=== PATIENT | female | born 1970 | race Hispanic/Latino ===

== ENCOUNTER 2018-03-20 13:33 | Inpatient (IN) | payer OTHER ==
[~2018-03-20] VITALS: Ht 162.6 cm; Wt 59.4 kg
[~2018-03-20 13:33] MED LIST: ASPIRIN EC81 MG PO; FENOFIBRATE145 MG PO; FLONASE16 GM; GABAPENTIN100 MG PO; LANSOPRAZOLE30 MG PO; LANTUS100 UNITS/ SC; MECLIZINE HCL25 M1 PO; METFORMIN HCL500 MG PO; NOVOLOG100 UNIT/1 SC; PRAVASTATIN SOD40 MG PO; VENLAFAXINE HC100 MG PO
[2018-03-20] MEDS ORDERED: TYLENOL WITH C1 EACH PO (13:52)
[2018-03-20] MEDS ORDERED: DIFLUCAN150 MG PO (13:52)
[2018-03-20] MEDS ORDERED: CLOPIDOGREL75 MG PO (13:52)
[2018-03-20] MEDS ORDERED: DEXTROSE 50% SYRINGE 50 ML IV PRN (14:00)
[2018-03-20 14:11] LABS: BASOPHILS # (AUTO) 0.1 (0.0-0.1); BASOPHILS % 0.8 % (0.0-1.0); EOSINOPHILS # (AUTO) 0.4 (0.0-0.4); EOSINOPHILS % 4.5 % (0.0-6.0); HEMATOCRIT 45.4 % (34.2-44.1); HEMOGLOBIN 15.4 g/dL (12.0-16.0); LYMPHOCYTES # (AUTO) 3.4 (1.0-3.2); LYMPHOCYTES % 39.6 % (18.0-39.1); MEAN CORPUSCULAR HEMOGLOBIN 30.2 pg (28-32); MEAN CORPUSCULAR HGB CONC 33.9 g/dL (31-35); MONOCYTES # (AUTO) 0.5 (0.2-0.8); MONOCYTES % 5.8 % (4.4-11.3); NEUTROPHILS # (AUTO) 4.2 (2.1-6.9); NEUTROPHILS % 49.1 % (38.7-80.0); PLATELET COUNT 353 x10e3/uL (140-360); RED CELL DISTRIBUTION WIDTH 13.6 % (11.7-14.4)
[2018-03-20 14:29] LABS: ALANINE AMINOTRANSFERASE 12 IU/L (0-55); ALBUMIN 4.3 g/dL (3.5-5.0); ALBUMIN/GLOBULIN RATIO 1.1 (0.8-2.0); ALKALINE PHOSPHATASE 97 IU/L (40-150); ANION GAP 14.2 mmol/L (8-16); BLOOD UREA NITROGEN 17 mg/dL (7-26); BUN/CREATININE RATIO 21 (6-25); CALCIUM 10.2 mg/dL (8.4-10.2); CARBON DIOXIDE 28 mmol/L (22-29); CHLORIDE 101 mmol/L (98-107); EST GLOMERULAR FILTRATION RATE > 60 ML/MIN (60-); GLUCOSE 214 mg/dL (74-118); POTASSIUM 4.2 mmol/L (3.5-5.1); SODIUM 139 mmol/L (136-145)
[2018-03-20 15:30] VITALS: BP 106/66
[2018-03-20] MEDS: SODIUM CHLORIDE 0.9% 1000ML 1,000 ML IV SCH (17:14)
[2018-03-20] MEDS: INSULIN REGULAR, HUMAN 100 UNIT/1 ML 3ML VIAL SQ SCH ×2 (17:14→21:00)
[2018-03-20] MEDS ORDERED: VANCOMYCIN 1GM/NS 250 ML 250 ML IV SCH (18:00)
[2018-03-20] MEDS: PIPER-TAZ 3.375 GM 50 ML IV SCH ×2 (18:51→23:17)
[2018-03-20 20:00] VITALS: BP 158/71
[2018-03-20] MEDS: VANCOMYCIN 1GM/NS 250 ML 250 ML IV SCH (20:00)
[2018-03-20] MEDS: HYDROCODONE/APAP 5MG-325MG TAB PO PRN (20:51)
[2018-03-21] VITALS (8 sets, daily range): BP systolic 139–177; BP diastolic 66–83
[2018-03-21] MEDS: PIPER-TAZ 3.375 GM 50 ML IV SCH ×2 (05:13→14:35)
[2018-03-21] MEDS: INSULIN REGULAR, HUMAN 100 UNIT/1 ML 3ML VIAL SQ SCH ×3 (07:30→21:00)
[2018-03-21] MEDS: VANCOMYCIN 1GM/NS 250 ML 250 ML IV SCH (08:49)
[2018-03-21] MEDS: SODIUM CHLORIDE 0.9% 1000ML 1,000 ML IV SCH (09:02)
[2018-03-21] MEDS: HYDROCODONE/APAP 5MG-325MG TAB PO PRN (09:02)
[2018-03-21] MEDS: SODIUM CHLORIDE 0.45% 1,000 ML IV SCH (14:35)
[2018-03-21] MEDS ORDERED: INSULIN DETEMIR 100 UNIT/ML PEN SQ ONE (15:00)
[2018-03-21] MEDS ORDERED: HEPARIN 25,000 UNIT/D5W 250ML 250 ML IV SCH (15:00)
[2018-03-21] MEDS ORDERED: ASPIRIN 81 MG CHEW TAB PO ONE (15:30)
[2018-03-21 16:32] LABS: BASOPHILS # (AUTO) 0.1 (0.0-0.1); EOSINOPHILS # (AUTO) 0.3 (0.0-0.4); EOSINOPHILS % 4.2 % (0.0-6.0); HEMATOCRIT 37.8 % (34.2-44.1); HEMOGLOBIN 12.8 g/dL (12.0-16.0); LYMPHOCYTES # (AUTO) 3.5 (1.0-3.2); LYMPHOCYTES % 43.7 % (18.0-39.1); MEAN CORPUSCULAR HEMOGLOBIN 30.3 pg (28-32); MEAN CORPUSCULAR HGB CONC 33.9 g/dL (31-35); MEAN CORPUSCULAR VOLUME 89.4 fL (81-99); MONOCYTES # (AUTO) 0.5 (0.2-0.8); MONOCYTES % 5.9 % (4.4-11.3); NEUTROPHILS # (AUTO) 3.6 (2.1-6.9); NEUTROPHILS % 45.1 % (38.7-80.0); PLATELET COUNT 286 x10e3/uL (140-360); RED BLOOD COUNT 4.23 x10e6/uL (3.6-5.1); RED CELL DISTRIBUTION WIDTH 13.6 % (11.7-14.4)
[2018-03-21] MEDS ORDERED: LIDOCAINE HCL 2% LOCAL 20 ML VIAL ONE (16:38)
[2018-03-21] MEDS ORDERED: HEPARIN SOD/SOD CHLORIDE 2,000 ML ONE (16:39)
[2018-03-21] MEDS ORDERED: IOPAMIDOL 370 MG/ML 200 ML INFUS..BTL INJ ONE (16:39)
[2018-03-21 16:42] LABS: INR 1.16; PROTHROMBIN TIME 13.9 seconds (11.9-14.5)
[2018-03-21 16:43] LABS: PARTIAL THROMBOPLASTIN TIME 32.7 seconds (23.8-35.5)
--- NOTE | 2018-03-21 16:44 | History and Physical ---
CHIEF COMPLAINT: Left foot ischemic changes. PCP: Dr. Ceferino Gray. HISTORY: This is a 47-year-old female with diabetes and also has diabetic neuropathy with neurogenic urinary bladder. Patient had multiple urinary bladder surgeries in the past. She came in basically with left ischemic foot. There is moderate coloration to the left great toe along the plantar surface as well. The foot is slightly diminished in temperature. Patient is otherwise stable. No chest pain, no shortness of breath. PAST MEDICAL HISTORY: Diabetes type 2 on oral medication, hypertension, history of neurogenic urinary bladder status post surgery. SOCIAL HISTORY: Patient does not smoke or use alcohol. No recreational drug use. ALLERGIES: NO KNOWN ALLERGIES. HOME MEDICATIONS: List reviewed. REVIEW OF SYSTEMS: Left foot ischemia. PHYSICAL EXAMINATION VITAL SIGNS: Temperature is 98, blood pressure 151/75, pulse rate 73, and respirations 18. GENERAL: The patient is not in acute distress. She is awake. HEENT: Normocephalic, atraumatic. Anicteric. NECK: Supple grossly. PULMONARY: Diminished breath sounds. CARDIOVASCULAR: S1, S2. Regular rate and rhythm. ABDOMEN: Soft. Positive bowel sounds. Nontender. No distention. EXTREMITIES: Left ischemic foot noticed. The ischemia is more pronounced on left great toe. NEUROLOGIC: Neurogenic urinary bladder and diabetic neuropathy, but otherwise no other focal deficit. LABORATORY DATA: Sodium is 139, potassium 4.2, chloride 101, bicarb 28, BUN 17, creatinine 0.8, and glucose is 214. WBC is 8.6, hemoglobin 15.4, hematocrit 45.4, and platelets are 353. IMPRESSION 1. Left ischemic foot. 2. Diabetes type 2. 3. Hypertension. PLAN: IV fluid. Heparin drip. Intervention to the left foot. Diabetes insulin sliding scale coverage. Repeat lab workup. Check renal function. We will monitor the patient closely. Job#: [id number] JESSICA
[2018-03-21] MEDS: METOPROLOL TARTRATE 25 MG TAB PO SCH (17:00)
[2018-03-21] MEDS ORDERED: MIDAZOLAM HCL 2 MG/2 ML VIAL ONE ×3 (17:02→17:29)
[2018-03-21] MEDS ORDERED: VERAPAMIL HCL 2.5 MG/ML 2 ML VIAL ONE (17:02)
[2018-03-21] MEDS ORDERED: HEPARIN SOD (PORCINE) 1000 UNIT/ML 30ML ONE (17:02)
[2018-03-21] MEDS ORDERED: NITROGLYCERIN/D5W 200 MCG/ML 250 ML ONE (17:02)
[2018-03-21] MEDS ORDERED: FENTANYL CITRATE/PF 100MCG/2 ML INJ ONE ×2 (17:02→17:30)
[2018-03-21] MEDS ORDERED: IOPAMIDOL 300MG/ML 100 ML INFUS..BTL IV ONE (17:34)
[2018-03-21] MEDS ORDERED: PRASUGREL 10 MG TAB ONE (17:58)
[2018-03-21] MEDS ORDERED: HEPARIN 25,000U/0.45% NS 250ML 1,000 UNIT in SODIUM CHLORIDE 0.9% 250ML 0 ML IV SCH (20:30)
[2018-03-21] MEDS: ATORVASTATIN 40 MG TAB PO SCH (20:45)
[2018-03-21] MEDS: HYDROMORPHONE 1MG/1ML INJ IV PRN (20:46)
[2018-03-21] MEDS: CEFAZOLIN SOD 1 GM/NS 50ML 50 ML IV SCH (21:50)
[2018-03-22] VITALS (8 sets, daily range): BP systolic 100–159; BP diastolic 56–71
[2018-03-22] MEDS: HYDROMORPHONE 1MG/1ML INJ IV PRN ×4 (02:00→21:19)
[2018-03-22] MEDS: HYDROCODONE/APAP 5MG-325MG TAB PO PRN ×3 (02:37→22:31)
[2018-03-22] MEDS: SODIUM CHLORIDE 0.45% 1,000 ML IV SCH ×2 (03:29→15:25)
[2018-03-22] MEDS: CEFAZOLIN SOD 1 GM/NS 50ML 50 ML IV SCH ×3 (05:46→21:19)
[2018-03-22 07:47] LABS: BASOPHILS # (AUTO) 0.1 (0.0-0.1); BASOPHILS % 0.9 % (0.0-1.0); EOSINOPHILS # (AUTO) 0.3 (0.0-0.4); EOSINOPHILS % 3.3 % (0.0-6.0); HEMATOCRIT 37.5 % (34.2-44.1); HEMOGLOBIN 12.8 g/dL (12.0-16.0); LYMPHOCYTES # (AUTO) 3.2 (1.0-3.2); LYMPHOCYTES % 37.3 % (18.0-39.1); MEAN CORPUSCULAR HEMOGLOBIN 30.5 pg (28-32); MEAN CORPUSCULAR HGB CONC 34.1 g/dL (31-35); MEAN CORPUSCULAR VOLUME 89.5 fL (81-99); MONOCYTES # (AUTO) 0.5 (0.2-0.8); MONOCYTES % 6.1 % (4.4-11.3); NEUTROPHILS # (AUTO) 4.5 (2.1-6.9); NEUTROPHILS % 52.1 % (38.7-80.0); PLATELET COUNT 278 x10e3/uL (140-360); RED BLOOD COUNT 4.19 x10e6/uL (3.6-5.1); RED CELL DISTRIBUTION WIDTH 13.4 % (11.7-14.4)
[2018-03-22 08:00] LABS: MAGNESIUM 1.4 MG/DL (1.3-2.1)
[2018-03-22 08:03] LABS: ANION GAP 11.6 mmol/L (8-16); BLOOD UREA NITROGEN 7 mg/dL (7-26); BUN/CREATININE RATIO 11 (6-25); CALCIUM 8.9 mg/dL (8.4-10.2); CARBON DIOXIDE 26 mmol/L (22-29); CHLORIDE 105 mmol/L (98-107); CREATININE, SERUM 0.62 mg/dL (0.57-1.11); EST GLOMERULAR FILTRATION RATE > 60 ML/MIN (60-); GLUCOSE 174 mg/dL (74-118); POTASSIUM 3.6 mmol/L (3.5-5.1); SODIUM 139 mmol/L (136-145)
[2018-03-22 08:09] LABS: INR 1.15; PROTHROMBIN TIME 13.8 seconds (11.9-14.5)
[2018-03-22 08:27] LABS: THYROID STIMULATING HORMONE 2.126 uIU/mL (0.350-4.940)
[2018-03-22] MEDS: INSULIN REGULAR, HUMAN 100 UNIT/1 ML 3ML VIAL SQ SCH ×4 (09:05→21:20)
[2018-03-22 09:37] LABS: FOLATE 11.4 ng/mL (7.0-15.4)
[2018-03-22] MEDS: METOPROLOL TARTRATE 25 MG TAB PO SCH ×2 (09:39→17:12)
[2018-03-22] MEDS: ASPIRIN 81 MG CHEW TAB PO SCH (09:51)
--- NOTE | 2018-03-22 11:37 | Consultation ---
DATE OF CONSULTATION: March 22, 2018 REASON FOR CONSULTATION: Left foot ischemic changes. This is a 47-year-old female who presented to the ER after seeing Dr. Alexis in the office for worsening pain, discoloration and ischemia of her left foot. She was referred over to Dr. Chandler's office for urgent intervention for left foot ischemia. On presentation, she denies any nausea, fever, chills, vomiting, night sweats. However, does admit to severe pain. PAST MEDICAL HISTORY: Significant for type 2 diabetes mellitus on oral medication. Hypertension. History of neurogenic urinary bladder, status post surgery. SOCIAL HISTORY: The patient admits to tobacco abuse. However, she claims that she has recently quit. ALLERGIES: NO KNOWN DRUG ALLERGIES. HOME MEDICATIONS: See EMR. REVIEW OF SYSTEMS: As stated above. LABORATORY DATA: Reviewed. Values were reviewed. PHYSICAL EXAMINATION GENERAL: The patient was seen lying in bed and in no acute distress. HEAD: Normocephalic. CHEST: Denies any chest pain. LUNGS: Denies any shortness of breath. ABDOMEN: Soft and nontender. EXTREMITIES: Lower extremity evaluation, reduced pulses noted to the left dorsalis pedis and posterior tibial pulse. However, the nurse states that she got biphasic waveforms with the ultrasound. There are gangrenous changes noted to the left hallux. However, they are stable with no acute signs of infection. Neurologically, epicritic sensation is intact bilaterally and symmetrically. IMPRESSION: 1. Left foot ischemic foot. 2. Diabetes mellitus. 3. Status post angiogram with stenting with Dr. Chandler. 4. Hypertension. PLAN: From podiatry standpoint, the patient already underwent the angiogram with stenting with Dr. Chandler. From podiatry standpoint, no surgical intervention will be required at this point. She is to follow up with Dr. Alexis in clinic after discharge. At this point, podiatry will sign off. Thank you again for including us in the care of this patient. Job#: [id number]
[2018-03-22] MEDS: ATORVASTATIN 40 MG TAB PO SCH (21:18)
[2018-03-23] VITALS (9 sets, daily range): BP systolic 110–170; BP diastolic 61–81
[2018-03-23] MEDS: CEFAZOLIN SOD 1 GM/NS 50ML 50 ML IV SCH (05:59)
[2018-03-23 07:02] LABS: BASOPHILS # (AUTO) 0.1 (0.0-0.1); BASOPHILS % 0.6 % (0.0-1.0); EOSINOPHILS # (AUTO) 0.2 (0.0-0.4); EOSINOPHILS % 2.5 % (0.0-6.0); HEMATOCRIT 36.3 % (34.2-44.1); HEMOGLOBIN 12.4 g/dL (12.0-16.0); LYMPHOCYTES % 21.2 % (18.0-39.1); MEAN CORPUSCULAR HEMOGLOBIN 30.5 pg (28-32); MEAN CORPUSCULAR HGB CONC 34.2 g/dL (31-35); MEAN CORPUSCULAR VOLUME 89.4 fL (81-99); MONOCYTES # (AUTO) 0.7 (0.2-0.8); MONOCYTES % 6.8 % (4.4-11.3); NEUTROPHILS # (AUTO) 6.6 (2.1-6.9); NEUTROPHILS % 68.5 % (38.7-80.0); PLATELET COUNT 271 x10e3/uL (140-360); RED BLOOD COUNT 4.06 x10e6/uL (3.6-5.1); RED CELL DISTRIBUTION WIDTH 13.4 % (11.7-14.4)
[2018-03-23] MEDS: SODIUM CHLORIDE 0.45% 1,000 ML IV SCH ×2 (07:23→19:20)
[2018-03-23 07:26] LABS: ANION GAP 13.8 mmol/L (8-16); BLOOD UREA NITROGEN 6 mg/dL (7-26); BUN/CREATININE RATIO 9 (6-25); CARBON DIOXIDE 26 mmol/L (22-29); CHLORIDE 104 mmol/L (98-107); CREATININE, SERUM 0.69 mg/dL (0.57-1.11); EST GLOMERULAR FILTRATION RATE > 60 ML/MIN (60-); GLUCOSE 193 mg/dL (74-118); POTASSIUM 3.8 mmol/L (3.5-5.1); SODIUM 140 mmol/L (136-145)
[2018-03-23] MEDS: INSULIN REGULAR, HUMAN 100 UNIT/1 ML 3ML VIAL SQ SCH ×4 (08:34→20:08)
[2018-03-23] MEDS: ASPIRIN 81 MG CHEW TAB PO SCH (09:16)
[2018-03-23] MEDS: PRASUGREL 10 MG TAB PO SCH (09:16)
[2018-03-23] MEDS: METOPROLOL TARTRATE 25 MG TAB PO SCH ×2 (09:17→17:40)
[2018-03-23] MEDS: HYDROCODONE/APAP 5MG-325MG TAB PO PRN ×2 (10:44→17:50)
[2018-03-23] MEDS ORDERED: CEFAZOLIN SOD 1 GM VIAL IV SCH (14:00)
[2018-03-23] MEDS: CEFAZOLIN SOD 1 GM VIAL IV SCH ×2 (14:18→21:50)
[2018-03-23] MEDS: HYDROMORPHONE 1MG/1ML INJ IV PRN ×2 (14:30→19:56)
--- NOTE | 2018-03-23 15:53 | Operative Report ---
DATE OF PROCEDURE: March 21, 2018 INDICATIONS: Peripheral arterial disease with gangrene of the left lower extremity. PROCEDURES PERFORMED: 1. Abdominal aortogram. 2. Bilateral lower extremity angiograms. 3. Selective placement of a catheter from the right femoral artery to the left superficial femoral artery. 4. Additional 3rd-order catheter placement from the right femoral artery to the left anterior tibial artery. 5. Atherectomy and stent placement to the left superficial femoral artery. 6. Secondary thrombectomy of the left superficial femoral artery. 7. Atherectomy and balloon angioplasty of the left anterior tibial artery. 8. Deployment of right groin Perclose. COMPLICATIONS: None. RECOMMENDATIONS: Staged intervention on the right femoral artery. Dual antiplatelet therapy for life. Access was obtained in the right femoral artery. A 6-Panamanian sheath was placed. Abdominal aortogram demonstrated minimal disease in the abdominal aorta and iliacs bilaterally. Bilateral femoral arteries approximately 50% stenosis. Distal vessels could not be seen. The catheter was then advanced from the right femoral artery into the left superficial femoral artery (3rd-order catheter placement confirming complete occlusion of the left femoral artery. Distal infrapopliteal vessels could not be seen. The catheter was then advanced from the right femoral artery to the left anterior tibial artery, confirming complete occlusion of the proximal left anterior tibial artery. On the right leg, the femoral artery was occluded. A decision was made to intervene on the left femoral artery and left anterior tibial artery. The patient received intravenous heparin for anticoagulation. The sheath was exchanged to a 45 cm 6-Panamanian sheath. The lesions were crossed using a Roadrunner wire. Orbital atherectomy of the anterior tibial as well as the superficial femoral arteries was performed with large amounts of visible thrombus in the superficial femoral artery requiring manual aspiration and secondary thrombectomy. A single Viabahn 6 x 100 mm stent was placed, postdilated with a 6 mm balloon, and the anterior tibial artery was dilated with a 2.5 mm balloon. Excellent 3-vessel runoff to the left foot. Right groin repaired using Perclose. Patient transferred to the floor in stable condition. Job#: [id number] EV
[2018-03-23] MEDS: ATORVASTATIN 40 MG TAB PO SCH (20:16)
--- NOTE | 2018-03-23 21:17 | Progress Note ---
DATE: March 23, 2018 CARDIOLOGY PROGRESS NOTE SUBJECTIVE: Patient denies chest pain or shortness of breath. OBJECTIVE: VITAL SIGNS: Temperature 98.3 degrees, pulse 80, respiratory rate 18, blood pressure 157/81, oxygen saturation 99%. GENERAL: Awake and alert, in no acute distress. LUNGS: Clear to auscultation bilaterally. No wheezes or crackles. CARDIOVASCULAR: Normal rate, regular rhythm. No murmur. Normal S1 and S2. ABDOMEN: Soft, nontender. EXTREMITIES: No edema. Right groin without hematoma or bruit, tender to palpation. Left great toe with discoloration present. CARDIAC MEDICATIONS: 1. Metoprolol tartrate 25 mg p.o. b.i.d. 2. Prasugrel 10 mg p.o. daily. 3. Aspirin 81 mg p.o. daily. 4. Atorvastatin 40 mg p.o. at bedtime. LABS: WBC 9.62, hemoglobin 12.4, hematocrit 36.3, platelets 271,000. Sodium 140, potassium 3.8, chloride 104, CO2 26, BUN 6, creatinine 0.69. IMPRESSION: 1. Ischemic left great toe. 2. Peripheral arterial disease, status post atherectomy and stent placement of the left superficial femoral artery, and atherectomy and balloon angioplasty of the left anterior tibial artery with continued 100% occlusion of the right superficial femoral artery. 3. Diabetes mellitus type 2. 4. Hypertension. RECOMMENDATIONS: Continue dual antiplatelet therapy. Patient will need to follow up in the office for cardiac workup as well as staged intervention of the right superficial femoral artery. Please have the patient followup with us in the office in 2 weeks. Thank you for this consult. We will continue to follow. Job#: [id number]
[2018-03-24] VITALS (7 sets, daily range): BP systolic 119–149; BP diastolic 65–77
[2018-03-24] MEDS: ONDANSETRON HCL INJ 2 MG/ML VIAL IV PRN ×3 (02:20→21:54)
[2018-03-24] MEDS: HYDROMORPHONE 1MG/1ML INJ IV PRN ×5 (02:20→21:54)
[2018-03-24] MEDS: CEFAZOLIN SOD 1 GM VIAL IV SCH ×3 (05:20→21:16)
[2018-03-24] MEDS: INSULIN REGULAR, HUMAN 100 UNIT/1 ML 3ML VIAL SQ SCH ×4 (08:23→20:30)
[2018-03-24] MEDS: METOPROLOL TARTRATE 25 MG TAB PO SCH ×2 (09:15→17:28)
[2018-03-24] MEDS: PRASUGREL 10 MG TAB PO SCH (09:15)
[2018-03-24] MEDS: ASPIRIN 81 MG CHEW TAB PO SCH (09:15)
[2018-03-24] MEDS: HYDROCODONE/APAP 5MG-325MG TAB PO PRN ×3 (10:15→19:48)
[2018-03-24] MEDS: SODIUM CHLORIDE 0.45% 1,000 ML IV SCH (11:07)
--- NOTE | 2018-03-24 11:38 | Progress Note ---
DATE: March 24, 2018 CARDIOLOGY PROGRESS NOTE SUBJECTIVE: Patient denies chest pain or shortness of breath. OBJECTIVE VITAL SIGNS: Temperature 99 degrees, pulse 81, respiratory rate 18, blood pressure 143/77, oxygen saturation 98% on room air. GENERAL: Awake and alert, in no acute distress. LUNGS: Clear to auscultation bilaterally. No wheezes or crackles. CARDIOVASCULAR: Normal rate, regular rhythm. No murmur. Normal S1 and S2. ABDOMEN: Soft, nontender. EXTREMITIES: No edema. Left great toe with discoloration noted. CARDIAC MEDICATIONS 1. Prasugrel 10 mg p.o. daily. 2. Aspirin 81 mg p.o. daily. 3. Metoprolol tartrate 25 mg p.o. b.i.d. 4. Atorvastatin 40 mg p.o. nightly. LABS: None today. IMPRESSION 1. Ischemic left great toe. 2. Peripheral arterial disease, status post atherectomy and stent placement of the left superficial femoral artery and atherectomy and balloon angioplasty of the left anterior tibial artery with continued 100% occlusion of the right superficial femoral artery. 3. Diabetes mellitus, type 2. 4. Hypertension. RECOMMENDATIONS: Continue dual antiplatelet therapy. Patient will need to follow up in the office for cardiac evaluation as well as staged intervention of the right SFA. Please have the patient follow up in 2 weeks. Continue current cardiac medications otherwise. Stop IV fluids. Thank you for this consult. We will continue to follow. Job#: [id number]
[2018-03-24] MEDS: ATORVASTATIN 40 MG TAB PO SCH (20:29)
[2018-03-25] VITALS: BP 127/62
[2018-03-25 04:35] VITALS: BP 134/64
[2018-03-25] MEDS: HYDROCODONE/APAP 5MG-325MG TAB PO PRN ×2 (05:15→09:52)
[2018-03-25] MEDS: CEFAZOLIN SOD 1 GM VIAL IV SCH (05:34)
[2018-03-25 08:10] VITALS: BP 115/64
[2018-03-25] MEDS: ASPIRIN 81 MG CHEW TAB PO SCH (08:19)
[2018-03-25] MEDS: PRASUGREL 10 MG TAB PO SCH (08:19)
[2018-03-25] MEDS: INSULIN REGULAR, HUMAN 100 UNIT/1 ML 3ML VIAL SQ SCH (08:19)
[2018-03-25] MEDS: METOPROLOL TARTRATE 25 MG TAB PO SCH (08:20)
[2018-03-25 09:00] VITALS: BP 115/64
[2018-03-25] MEDS ORDERED: NORCO 10-325 T1 EACH PO (10:07)
[2018-03-25] MEDS ORDERED: EFFIENT10 MG PO (10:07)
[2018-03-25] MEDS ORDERED: SENNA LAX8.6 MG PO (10:08)
[2018-03-25] MEDS ORDERED: CELEBREX50 MG PO (10:09)
[2018-03-25] MEDS ORDERED: DOXYCYCLINE HY100 MG PO (10:09)
--- NOTE | 2018-03-31 10:43 | Consultation ---
DATE OF CONSULTATION: March 21, 2018 CARDIOLOGY CONSULTATION REFERRING PHYSICIAN: Dr. Munir Serrano. CHIEF COMPLAINT: Leg pain. HISTORY OF PRESENT ILLNESS: Ms. Nix is a 47-year-old woman with history of diabetes mellitus who presents via the emergency department to [facility] complaining of worsening pain to the left leg over the last couple of months, more pronounced last week. Most of the symptoms localized to the left foot. She describes hypersensitivity to light touch, however, no motor loss or sensory loss. Pulses are found to be abnormal. Given concerns for limb ischemia, we were consulted for further evaluation. Arrangement have been made by Dr. Forde to take patient to the rd lab technician later this afternoon. Nurse and AOS has setup accordingly. Patient denies any chest pain or shortness of breath at this time. REVIEW OF SYSTEMS: A 12-system review negative except for as noted above. ALLERGIES: NO KNOWN DRUG ALLERGIES. PAST MEDICAL HISTORY: As per HPI. SOCIAL HISTORY: Denies any alcohol or drugs. Denies smoking. FAMILY HISTORY: Noncontributory. PHYSICAL EXAMINATION VITAL SIGNS: Temperature 95.9, heart rate 73, respiratory rate 18, blood pressure 151/75, and O2 sat 98% on room air. GENERAL: In mild distress. CHEST: Clear to auscultation. CARDIOVASCULAR: Regular rate and rhythm. Normal S1 and S2. No S3. No S4. ABDOMEN: Soft. EXTREMITIES: No edema. Left foot painful to light touch. Decreased pedal pulses. There is faint cyanotic discoloration of the first toe and dorsum of foot on the left side. MEDICATIONS: Reviewed. On Zosyn, vancomycin, metoprolol tartrate 25 mg b.i.d. Heparin IV has been ordered. Aspirin also ordered. STUDIES: White blood cells of 8.5, hemoglobin 15.4, and platelets 353. Creatinine 0.8, glucose 193. Normal transaminases. Potassium 4.2. Blood culture no growth after 24 hours. ASSESSMENT 1. A 47-year-old woman with progressive worsening limb ischemia, component of possible acute or subacute limb ischemia on top of critical limb ischemia with threatened left limb. 2. Diabetes mellitus recommendation. Patient is scheduled for peripheral angiography and possible intervention with Dr. Forde later today. Continue aspirin, heparin, and statin. Continue beta-maria eugenia. Overall, guarded limb and overall prognosis. Job#: [id number] DWAYNE
--- NOTE | 2018-03-31 10:45 | Consultation ---
DATE OF CONSULTATION: March 21, 2018 REASON FOR CONSULTATION: Ischemic limb. HISTORY OF PRESENT ILLNESS: This patient who is a 47-year-old female with history of diabetes mellitus, atherosclerotic disease, and hypertension, comes in with early black discoloration and severe pain of her left foot mainly in the big toe. The patient came to the emergency room where she is being evaluated and admitted. Patient was started on vancomycin and Zosyn and patient was consulted. The patient is currently lying in bed comfortably, concerned about her foot. PAST MEDICAL HISTORY: Diabetes mellitus and hypertension. PAST SURGICAL HISTORY: She denies. ALLERGIES: NKA. SOCIAL HISTORY: There is no smoking, drug abuse or alcohol abuse. LAB: White count 8.5, hemoglobin 15. Her sodium 139, potassium 4.2, glucose 214, and creatinine 0.8. PHYSICAL EXAMINATION GENERAL: She is currently alert and oriented, does not seem to be in acute distress. VITALS: Stable. Currently afebrile. HEENT: She is not icteric. NECK: Supple. No JVD. No lymphadenopathy. No thyromegaly. CHEST: Clear bilateral. COR: S1 and S2. No murmur. ABDOMEN: Soft. Bowel sounds present. No tenderness. EXTREMITIES: No edema. On the foot, there is minimum erythema. The big toe seems to be a little bit husky, but the pulse is weak. IMPRESSION: Ischemic toe. I do not think there is infection at the present time. I would suggest put the patient on Ancef. Discontinue vancomycin and discontinue Zosyn. Vascular workup is ordered. Recheck CBC. Recheck chem panel. We will follow with you. Job#: [id number] DWAYNE
--- NOTE | 2018-03-31 11:00 | Discharge Summary ---
PRIMARY CARE PHYSICIAN: Ceferino Gray MD CONSULTANTS 1. Keenan Chandler MD 2. Liset Esquivel DPM 3. Jesus Victor MD FINAL DIAGNOSES 1. Left ischemic foot, more pronounced at the right great toe. 2. Status post abdominal angiogram with bilateral lower extremity angiogram. FINDINGS: With multiple blockages, status post secondary thrombectomy of the left superficial femoral artery and atherectomy and balloon angioplasty of the left anterior tibial and stent placement in the tibial artery. Right peripheral vascular disease. The femoral artery on the right was occluded. Intervention to the right lower extremity at a later date per Dr. Keenan Chandler. SUMMARY: This is a 47-year-old female with critical foot ischemia, more pronounced between the left great toe and the 2nd toe. It is ischemic with necrosis skin changes. The patient underwent angiogram and aortic runoff. Patient had the procedure done as mentioned above. The procedure note is available for review from Dr. Keenan Chandler, which was done March 23, 2018. The patient is stable. She will go home today. Pain controlled. She was given Prasugrel 10 mg daily instead of taking Plavix at home. Senna-S twice a day to prevent constipation, Celebrex 100 mg twice a day p.m. for pain, doxycycline 1 mg twice a day for 15 days, [place] 10 mg q.6 p.r.n. for pain. Patient is to follow up with Dr. Keenan Chandler and sock knitter Dr. Esquivel in approximately 1 week. The patient is stable at this time. Resume home medication. The patient will follow up with Dr. Ceferino Gray for medication reconciliation. Patient will discharge home today. ADA diet, activity as tolerated and pain control. Job#: [id number]
--- NOTE | 2018-03-31 11:01 | Progress Note ---
DATE: March 22, 2018 CARDIOLOGY PROGRESS NOTE SUBJECTIVE: No complaints. OBJECTIVE VITAL SIGNS: Temperature 98.3, heart rate 53, respiratory rate 16, blood pressure 100/56, O2 sat 98% on room air. GENERAL: No acute distress. Alert. NECK: No JVD. CHEST: Clear to auscultation. CARDIOVASCULAR: Regular rate and rhythm. Normal S1 and S2. No S3 and no S4. No murmurs or rubs. ABDOMEN: Soft. EXTREMITIES: No edema. Left foot with early black discoloration of 1st toe, all improved compared to previous exam. Palpable pulses. CARDIOVASCULAR MEDICATIONS: Reviewed. Aspirin 81 mg daily. Metoprolol tartrate 25 mg b.i.d. Atorvastatin 40 mg nightly. Add Plavix 75 mg daily. LABORATORY STUDIES: White blood cells 8.5, hemoglobin 12.8, platelets 278,000. INR 1.15. PTT 32. Sodium 139, potassium 3.6, chloride 105, bicarbonate 26. BUN 7. Creatinine 0.62. Glucose 167. Hemoglobin A1c was 10.3. Calcium 8.9. Magnesium 1.4. TSH 2.1. ASSESSMENT: 1. Critical limb ischemia with possible subacute component of left lower extremity with threatened limb now status post revascularization with left superficial femoral artery. TRACE CLERK and stent. 2. Uncontrolled diabetes. PLAN: 1. Aspirin and Plavix. 2. Statin. 3. Diabetes control. 4. Blood pressure control. I appreciate podiatry's expertise. Job#: [id number]
== END 2018-03-25 10:45 | disposition home or self-care (01) | DRG 271 ==
LOC: ER 13:33 → ERHOLD 15:20 → MED/SURG3 17:38
PROVIDERS: ADMIT Internal Medicine; ATTEND Internal Medicine
PROC: 047L3ZZ Dilation of Left Femoral Artery, Percutaneous Approach (ICD-10-PCS; principal; 2018-03-21)
PROC: 04CL3ZZ Extirpation of Matter from Left Femoral Artery, Percutaneous Approach (ICD-10-PCS; 2018-03-21)
PROC: 04CQ3ZZ Extirpation of Matter from Left Anterior Tibial Artery, Percutaneous Approach (ICD-10-PCS; 2018-03-21)
PROC: 047L34Z Dilation of Left Femoral Artery with Drug-eluting Intraluminal Device, Percutaneous Approach (ICD-10-PCS; 2018-03-21)
PROC: 047Q3Z1 Dilation of Left Anterior Tibial Artery using Drug-Coated Balloon, Percutaneous Approach (ICD-10-PCS; 2018-03-21)
PROC: 047Q3ZZ Dilation of Left Anterior Tibial Artery, Percutaneous Approach (ICD-10-PCS; 2018-03-21)
PROC: B41D1ZZ Fluoroscopy of Aorta and Bilateral Lower Extremity Arteries using Low Osmolar Contrast (ICD-10-PCS; 2018-03-21)
DX: E11.52 Type 2 diabetes mellitus with diabetic peripheral angiopathy with gangrene (principal); I70.262 Atherosclerosis of native arteries of extremities with gangrene, left leg; I70.92 Chronic total occlusion of artery of the extremities; I96 Gangrene, not elsewhere classified; Z79.4 Long term (current) use of insulin; I99.8 Other disorder of circulatory system; I10 Essential (primary) hypertension; N31.9 Neuromuscular dysfunction of bladder, unspecified; E11.65 Type 2 diabetes mellitus with hyperglycemia; F17.210 Nicotine dependence, cigarettes, uncomplicated; I70.201 Unspecified atherosclerosis of native arteries of extremities, right leg
CPT/HCPCS: 36215; 36415; 37227; 37228; 80048; 80053; 82607; 82746; 82948; 83036; 83735; 84443; 85025; 85610; 85730; 87040; 96361; 96365; 99284; C2623; J0690; J1170; J1644; J2001; J2250; J2405; J2543; J3370; J7030; J7050; Q9967

== ENCOUNTER 2018-05-08 12:50 | Observation (INO) | payer OTHER ==
[2018-05-07 12:37] LABS: BASOPHILS # (AUTO) 0.1 (0.0-0.1); BASOPHILS % 0.8 % (0.0-1.0); EOSINOPHILS # (AUTO) 0.2 (0.0-0.4); EOSINOPHILS % 2.9 % (0.0-6.0); HEMATOCRIT 37.6 % (34.2-44.1); HEMOGLOBIN 12.5 g/dL (12.0-16.0); LYMPHOCYTES # (AUTO) 2.9 (1.0-3.2); LYMPHOCYTES % 38.6 % (18.0-39.1); MEAN CORPUSCULAR HEMOGLOBIN 30.6 pg (28-32); MEAN CORPUSCULAR HGB CONC 33.2 g/dL (31-35); MEAN CORPUSCULAR VOLUME 91.9 fL (81-99); MONOCYTES # (AUTO) 0.5 (0.2-0.8); MONOCYTES % 6.3 % (4.4-11.3); NEUTROPHILS # (AUTO) 3.9 (2.1-6.9); NEUTROPHILS % 51.3 % (38.7-80.0); PLATELET COUNT 358 x10e3/uL (140-360); RED BLOOD COUNT 4.09 x10e6/uL (3.6-5.1); RED CELL DISTRIBUTION WIDTH 13.5 % (11.7-14.4)
[2018-05-07 12:49] LABS: INR 1.09; PROTHROMBIN TIME 13.3 seconds (11.9-14.5)
[2018-05-07 13:02] LABS: ALANINE AMINOTRANSFERASE 27 IU/L (0-55); ALBUMIN 3.9 g/dL (3.5-5.0); ALBUMIN/GLOBULIN RATIO 1.1 (0.8-2.0); ALKALINE PHOSPHATASE 91 IU/L (40-150); ANION GAP 16.3 mmol/L (8-16); BLOOD UREA NITROGEN 8 mg/dL (7-26); BUN/CREATININE RATIO 11 (6-25); CALCIUM 9.6 mg/dL (8.4-10.2); CARBON DIOXIDE 25 mmol/L (22-29); CHLORIDE 100 mmol/L (98-107); CREATININE, SERUM 0.74 mg/dL (0.57-1.11); EST GLOMERULAR FILTRATION RATE > 60 ML/MIN (60-); GLUCOSE 229 mg/dL (74-118); POTASSIUM 4.3 mmol/L (3.5-5.1); SODIUM 137 mmol/L (136-145)
[~2018-05-08] VITALS: Ht 162.6 cm; Wt 68.0 kg
[2018-05-08] VITALS (15 sets, daily range): BP systolic 116–170; BP diastolic 55–106
[~2018-05-08 12:50] MED LIST changes: +ATORVASTATIN CA20 MG PO; +CELEBREX50 MG PO; +CLOPIDOGREL75 MG PO; +DIFLUCAN150 MG PO; +DOXYCYCLINE HY100 MG PO; +EFFIENT10 MG PO; +GABAPENTIN300 MG PO; +HUMALOG100 UNIT/3; +LEVEMIR100 UNIT/1; +LISINOPRIL10 MG PO; +NORCO 10-325 T1 EACH PO; +PLAVIX75 MG PO; +PRASUGREL 10 MG TAB PO ONE; +RANEXA500 MG PO; +SENNA LAX8.6 MG PO; +TYLENOL WITH C1 EACH PO
[2018-05-08] MEDS ORDERED: ALPRAZOLAM 0.5 MG TAB ONE (13:26)
[2018-05-08] MEDS ORDERED: SODIUM CHLORIDE 0.9% 1000ML 1,000 ML ONE ×2 (13:27→14:03)
[2018-05-08] MEDS ORDERED: DIPHENHYDRAMINE HCL 25 MG CAP ONE (13:27)
[2018-05-08] MEDS ORDERED: MIDAZOLAM HCL 2 MG/2 ML VIAL ONE ×3 (14:02→14:40)
[2018-05-08] MEDS ORDERED: LIDOCAINE HCL 2% LOCAL 20 ML VIAL ONE (14:02)
[2018-05-08] MEDS ORDERED: FENTANYL CITRATE/PF 100MCG/2 ML INJ ONE ×2 (14:02→14:40)
[2018-05-08] MEDS ORDERED: HEPARIN SOD/SOD CHLORIDE 2,000 ML ONE (14:02)
[2018-05-08] MEDS ORDERED: VERAPAMIL HCL 2.5 MG/ML 2 ML VIAL ONE (14:02)
[2018-05-08] MEDS ORDERED: IOPAMIDOL 300MG/ML 100 ML INFUS..BTL IV ONE (14:03)
[2018-05-08] MEDS ORDERED: PRASUGREL 10 MG TAB ONE (15:00)
[2018-05-08] MEDS ORDERED: MORPHINE SULFATE 2 MG/ML SYR ONE (17:27)
[2018-05-08] MEDS ORDERED: MORPHINE SULFATE 2 MG/ML SYR IV PRN (19:30)
[2018-05-08] MEDS: MORPHINE SULFATE INJ 4 MG/ML INJ IV PRN (19:43)
[2018-05-08] MEDS ORDERED: MORPHINE SULFATE INJ 4 MG/ML INJ IV PRN (19:45)
[2018-05-09] VITALS (11 sets, daily range): BP systolic 118–149; BP diastolic 64–73
[2018-05-09] MEDS: MORPHINE SULFATE INJ 4 MG/ML INJ IV PRN ×2 (02:49→09:35)
[2018-05-09] MEDS ORDERED: MORPHINE SULFATE 2 MG/ML SYR IV NR (10:09)
[2018-05-09] MEDS ORDERED: MORPHINE SULFATE 2 MG/ML SYR ONE (10:09)
[2018-05-09] MEDS ORDERED: LIDOCAINE 1% W/EPINEPHRINE 20 ML VIAL INJ STA (11:15)
[2018-05-09 11:28] LABS: BASOPHILS % 0.5 % (0.0-1.0); EOSINOPHILS # (AUTO) 0.2 (0.0-0.4); EOSINOPHILS % 2.7 % (0.0-6.0); HEMATOCRIT 32.5 % (34.2-44.1); HEMOGLOBIN 10.9 g/dL (12.0-16.0); LYMPHOCYTES # (AUTO) 2.2 (1.0-3.2); MEAN CORPUSCULAR HEMOGLOBIN 30.6 pg (28-32); MEAN CORPUSCULAR HGB CONC 33.5 g/dL (31-35); MEAN CORPUSCULAR VOLUME 91.3 fL (81-99); MONOCYTES # (AUTO) 0.4 (0.2-0.8); MONOCYTES % 5.9 % (4.4-11.3); NEUTROPHILS # (AUTO) 4.5 (2.1-6.9); NEUTROPHILS % 60.5 % (38.7-80.0); PLATELET COUNT 299 x10e3/uL (140-360); RED BLOOD COUNT 3.56 x10e6/uL (3.6-5.1); RED CELL DISTRIBUTION WIDTH 13.9 % (11.7-14.4)
[2018-05-09 11:45] LABS: ALANINE AMINOTRANSFERASE 19 IU/L (0-55); ALBUMIN 3.2 g/dL (3.5-5.0); ALBUMIN/GLOBULIN RATIO 1.2 (0.8-2.0); ALKALINE PHOSPHATASE 83 IU/L (40-150); ANION GAP 14.2 mmol/L (8-16); BLOOD UREA NITROGEN 6 mg/dL (7-26); BUN/CREATININE RATIO 9 (6-25); CALCIUM 8.6 mg/dL (8.4-10.2); CARBON DIOXIDE 24 mmol/L (22-29); CHLORIDE 102 mmol/L (98-107); CREATININE, SERUM 0.67 mg/dL (0.57-1.11); EST GLOMERULAR FILTRATION RATE > 60 ML/MIN (60-); GLUCOSE 249 mg/dL (74-118); POTASSIUM 4.2 mmol/L (3.5-5.1); SODIUM 136 mmol/L (136-145)
[2018-05-09] MEDS ORDERED: GABAPENTIN 300 MG CAP PO SCH (17:00)
--- NOTE | 2018-05-09 17:07 | Progress Note ---
DATE: CARDIOLOGY PROGRESS NOTE SUBJECTIVE: Norma complains of left groin pain and also continued oozing from her access point. Denies any other complaints. OBJECTIVE VITAL SIGNS: Temperature 98.5, pulse 73, respiratory rate 16, blood pressure 136/66, oxygen 100% on room. CARDIOVASCULAR MEDICATIONS: None at this point, but will resume home medications. LABS: WBC 7.56, hemoglobin 12.5, hematocrit 37.6, and platelets are 358,000. Sodium 137, potassium 4.3, BUN 8, creatinine 0.74, glucose 229. PT 13.3, INR 1.09. These are labs from yesterday. Telemetry is normal sinus rhythm. PHYSICAL EXAMINATION GENERAL: Alert and oriented times 3. Resting comfortably in bed. Complains of pain at this time. LUNGS: Clear to auscultation throughout. CARDIOVASCULAR: Regular rate and rhythm. ABDOMEN: Soft and nontender. EXTREMITIES: Diminished pedal pulses. IMPRESSION 1. Left groin pain, status intervention yesterday. 2. Peripheral arterial disease: Status post left superficial femoral artery atherectomy and ballooning yesterday. RECOMMENDATIONS: Continue to apply pressure to the left groin. Dressing change this morning with the help of the nurse. Resume home medications for now. Pain management. Maintain in bed and monitor site for bleeding. Repeat lab work this morning. Monitor hemoglobin closely. Possible discharge tomorrow depending on if the bleeding stops. DICTATED BY MARY LIM NP Job#: [id number] [place]
--- NOTE | 2018-05-09 20:31 | Operative Report ---
DATE OF PROCEDURE: May 08, 2018 INDICATIONS: Peripheral arterial disease and claudication of the right lower extremity. PROCEDURES PERFORMED 1. Abdominal aorta catheter placement. 2. Abdominal aortogram. 3. Unilateral extremity angiogram. 4. Selective catheter placement from the left femoral artery to the right superficial femoral artery. 5. Additional third-order catheter placement in the left femoral artery to the right anterior tibial artery. 6. Atherectomy and drug-coated balloon angioplasty of the distal right superficial femoral and popliteal arteries. 7. Secondary thrombectomy of the right femoral artery. 8. Deployment of left groin Perclose. COMPLICATIONS: None. BLOOD LOSS: Minimal. RECOMMENDATIONS: Dual antiplatelet therapy. Access obtained in the left femoral artery. A 6-Uzbek sheath was placed. Abdominal aortogram demonstrated minimal disease in the abdominal aorta and iliacs bilaterally. The right femoral artery was not visualized. Catheter was then advanced in the left femoral artery to the right superficial femoral artery with complete occlusion of the distal right superficial femoral and popliteal arteries. Distal vessels could not be seen. The catheter was then advanced in the left femoral artery to the right anterior tibial artery confirming 3-vessel runoff to the right foot. A decision was made to intervene on the right femoral and popliteal arteries. The patient received intravenous heparin for anticoagulation, as well as oral aspirin and Effient. Orbital atherectomy was required for the chronic total occlusion of the right femoral artery. were visible. Thrombus was generated for which manual aspiration thrombus was required. A 6 mm balloon angioplasty was performed with a drug-coated balloon. Excellent end result, less than 10% residual stenosis with 3-vessel runoff to the right foot. No complications. Left groin repaired using Perclose. Patient was observed in the hospital overnight. Job#: [id number] ALESHA
[2018-05-09] MEDS ORDERED: ATORVASTATIN 20 MG TAB PO SCH (21:00)
[2018-05-10] MEDS ORDERED: ASPIRIN 325 MG TAB PO SCH (09:00)
[2018-05-10] MEDS ORDERED: LISINOPRIL 20 MG TAB PO SCH (09:00)
[2018-05-10] MEDS ORDERED: CLOPIDOGREL BISULFATE 75 MG TAB PO SCH (09:00)
--- NOTE | 2018-05-21 15:42 | Discharge Summary ---
DISCHARGE DIAGNOSIS: Peripheral arterial disease. CONDITION ON DISCHARGE: Stable. DISCHARGE MEDICATIONS: Please see NOV. HOSPITAL COURSE: Ms. Nix was admitted for elective angiography and intervention on her femoral artery. This was performed without complications and patient is able to be discharged home. KRISTOFER PABON MD Job#: [id number] GH
== END 2018-05-09 16:16 | disposition home or self-care (01) ==
LOC: CATH LAB 12:50 → INTOOBSV 18:16 → IMCU 18:16
PROVIDERS: ADMIT Internal Medicine Interventional Cardiology; ATTEND Internal Medicine Interventional Cardiology
DX: E11.51 Type 2 diabetes mellitus with diabetic peripheral angiopathy without gangrene (principal); E11.40 Type 2 diabetes mellitus with diabetic neuropathy, unspecified; F17.210 Nicotine dependence, cigarettes, uncomplicated; Z79.4 Long term (current) use of insulin; Z83.3 Family history of diabetes mellitus; Z82.49 Family history of ischemic heart disease and other diseases of the circulatory system; Z01.812 Encounter for preprocedural laboratory examination
CPT/HCPCS: 36415 ×2; 37186; 37225; 80053 ×2; 85025 ×2; 85610; C1724; C1725 ×3; C1887; C2623; G0378 ×2; J2001; J2250; J2270 ×4; J7030; Q9967; 75710; 75774

== ENCOUNTER 2018-10-20 09:32 | Inpatient (IN) | payer OTHER ==
[2018-10-19 16:09] LABS: BASOPHILS # (AUTO) 0.1 (0.0-0.1); BASOPHILS % 1.2 % (0.0-1.0); EOSINOPHILS # (AUTO) 0.2 (0.0-0.4); EOSINOPHILS % 2.3 % (0.0-6.0); HEMATOCRIT 42.2 % (34.2-44.1); HEMOGLOBIN 13.8 g/dL (12.0-16.0); LYMPHOCYTES # (AUTO) 2.6 (1.0-3.2); LYMPHOCYTES % 37.7 % (18.0-39.1); MEAN CORPUSCULAR HEMOGLOBIN 29.9 pg (28-32); MEAN CORPUSCULAR HGB CONC 32.7 g/dL (31-35); MEAN CORPUSCULAR VOLUME 91.3 fL (81-99); MONOCYTES # (AUTO) 0.3 (0.2-0.8); MONOCYTES % 4.9 % (4.4-11.3); NEUTROPHILS # (AUTO) 3.7 (2.1-6.9); NEUTROPHILS % 53.6 % (38.7-80.0); PLATELET COUNT 359 x10e3/uL (140-360); RED BLOOD COUNT 4.62 x10e6/uL (3.6-5.1); RED CELL DISTRIBUTION WIDTH 13.4 % (11.7-14.4)
[2018-10-19 16:32] LABS: ALANINE AMINOTRANSFERASE 22 IU/L (0-55); ALBUMIN 4.2 g/dL (3.5-5.0); ALBUMIN/GLOBULIN RATIO 1.1 (0.8-2.0); ALKALINE PHOSPHATASE 87 IU/L (40-150); ANION GAP 18.2 mmol/L (8-16); BLOOD UREA NITROGEN 13 mg/dL (7-26); BUN/CREATININE RATIO 14 (6-25); CALCIUM 9.7 mg/dL (8.4-10.2); CARBON DIOXIDE 22 mmol/L (22-29); CHLORIDE 96 mmol/L (98-107); CHOLESTEROL 288 MD/DL (0-199); CREATININE, SERUM 0.92 mg/dL (0.57-1.11); EST GLOMERULAR FILTRATION RATE > 60 ML/MIN (60-); HDL CHOLESTEROL 58 MG/DL (40-60); LDL CHOLESTEROL 154 MG/DL (60-130); POTASSIUM 4.2 mmol/L (3.5-5.1); SODIUM 132 mmol/L (136-145); TRIGLYCERIDES 382 MG/DL (0-149)
[2018-10-19 16:36] LABS: GLUCOSE 449 mg/dL (74-118)
[2018-10-20] VITALS (24 sets, daily range): BP systolic 88–165; BP diastolic 63–101
[~2018-10-20] VITALS: Ht 160 cm; Wt 73.9 kg
[~2018-10-20 09:32] MED LIST changes: +CETIRIZINE HCL10 MG PO; -HUMALOG100 UNIT/3; +HUMALOG100 UNIT/3 SC; +NOVOLOG100 UNITS1 SC; -PRASUGREL 10 MG TAB PO ONE
--- OUTSIDE RECORDS SUMMARY | 2018-10-20 09:35 | XMS REPORT ---
Author Author [facility] Address Unknown Phone Unavailable Care Team Providers Care Steam Brush Operator Name Role Phone Unavailable Unavailable Payers Payer Name Policy Type Policy Number Effective Date Expiration Date Problems This patient has no known problems. Allergies, Adverse Reactions, Alerts Allergy Name Allergy Type Status Severity Reaction(s) Onset Date Inactive Date Treating Clinician Comments No Known Allergies DA Active U 2018-02-20 00:00:00 Medications This patient has no known medications.
[2018-10-20] MEDS ORDERED: ALPRAZOLAM 0.5 MG TAB ONE (09:46)
[2018-10-20] MEDS ORDERED: SODIUM CHLORIDE 0.9% 1000ML 1,000 ML ONE ×2 (09:46→11:49)
[2018-10-20] MEDS ORDERED: DIPHENHYDRAMINE HCL 25 MG CAP ONE (09:46)
[2018-10-20] MEDS ORDERED: HEPARIN SOD/SOD CHLORIDE 2,000 ML ONE (10:48)
[2018-10-20] MEDS ORDERED: LIDOCAINE HCL 1% LOCAL INJ 20 ML VIAL ONE (10:48)
[2018-10-20] MEDS ORDERED: IOPAMIDOL 300MG/ML 100 ML INFUS..BTL IV ONE ×2 (10:48→11:55)
[2018-10-20] MEDS ORDERED: MIDAZOLAM HCL 2 MG/2 ML VIAL ONE ×3 (11:09→12:02)
[2018-10-20] MEDS ORDERED: FENTANYL CITRATE/PF 100MCG/2 ML INJ ONE ×2 (11:09→12:03)
[2018-10-20] MEDS ORDERED: VERAPAMIL HCL 2.5 MG/ML 2 ML VIAL ONE (11:49)
[2018-10-20] MEDS ORDERED: NITROGLYCERIN/D5W 200 MCG/ML 250 ML ONE (11:54)
[2018-10-20] MEDS ORDERED: HEPARIN SOD (PORCINE) 1000 UNIT/ML 30ML ONE (11:54)
[2018-10-20] MEDS ORDERED: ALTEPLASE 50 MG/VIAL (29 MILLION IU) IV ONE ×2 (12:14→12:45)
[2018-10-20] MEDS ORDERED: HYDROCODONE/APAP 5MG-325MG TAB PO PRN (12:30)
[2018-10-20] MEDS ORDERED: HEPARIN SOD (PORCINE) 5,000 UNIT/ML VIAL IV ONE (12:30)
[2018-10-20] MEDS ORDERED: ZOLPIDEM TARTRATE 5 MG TAB PO PRN (12:30)
[2018-10-20] MEDS ORDERED: MORPHINE SULFATE INJ 4 MG/ML INJ IV PRN (12:30)
[2018-10-20] MEDS ORDERED: HYDRALAZINE HCL 20 MG/ML VIAL IV PRN (12:45)
[2018-10-20] MEDS ORDERED: DEXTROSE 50% SYRINGE 50 ML IV PRN (12:45)
[2018-10-20] MEDS: HEPARIN 25,000U/0.45% NS 250ML 250 ML IV SCH (13:00)
[2018-10-20] MEDS ORDERED: HYDROMORPHONE 2MG/ML 2 MG/ML ML ONE (14:15)
[2018-10-20] MEDS: GABAPENTIN 300 MG CAP PO SCH ×2 (15:00→20:56)
--- NOTE | 2018-10-20 16:20 | Operative Report ---
DATE OF PROCEDURE: October 20, 2018 INDICATIONS: Peripheral arterial disease, claudication to the left lower extremity. PROCEDURES PERFORMED 1. Abdominal aortogram. 2. Third-order catheter placement from the right femoral artery to the left superficial femoral artery. 3. Additional third-order catheter placement from the right femoral artery to the left anterior tibial artery. 4. Atherectomy and drug-coated balloon angioplasty of the left femoral artery. 5. Primary thrombectomy of the left femoral artery. 6. Initiation of transcatheter lysis. COMPLICATIONS: None. RECOMMENDATIONS: Overnight thrombolysis with infusion. Access was obtained in the right femoral artery. Abdominal aortogram demonstrated moderate plaque. Abdominal aortogram right common iliac artery. The left common iliac artery was not well visualized. The catheter was then advanced from the right femoral artery to the left superficial femoral artery. Complete occlusion of the . The popliteal vessel was not well seen. The lesions were crossed. and the catheter was advanced from the right femoral artery to the left anterior tibial artery with 3-vessel runoff to the left foot. A decision was made to intervene on the left femoral artery. The patient received intravenous heparin before Brilinta for anticoagulation. The sheath was exchanged to a 6-Namibian, 45-cm sheath. Orbital atherectomy with large amounts of visible thrombus. Peripheral angioplasty was performed. Primary thrombectomy of the left femoral artery was required. However, there was poor flow. An infusion catheter was placed, and transcatheter lysis with tPA infusion bolus was performed. The sheath was secured in place. The patient was transferred to the ICU in stable condition. Job#: [id number]
[2018-10-20] MEDS: INSULIN LISPRO 100 UNIT/1 ML 3ML VIAL SQ SCH ×3 (17:16→20:57)
[2018-10-20] MEDS: SODIUM CHLORIDE 0.9% 1000ML 1,000 ML IV SCH ×2 (17:28→23:50)
[2018-10-20] MEDS: HYDROMORPHONE 2MG/ML 2 MG/ML ML IV PRN ×2 (17:51→22:17)
[2018-10-20 18:14] LABS: INR 1.11; PROTHROMBIN TIME 15.3 seconds (11.9-14.5)
--- NOTE | 2018-10-20 19:35 | NUR ---
MD Ching Gagnon said to be rounding at [facility] per charge nurse, has not been to [facility] yet. Cardiology group paged, left message with paging service. Charge nurse Rogelio notified that MD. Samantha Gagnon has not arrived yet, and that MD. Jalil Astudillo hsa been paged
[2018-10-20 19:53] LABS: BASOPHILS # (AUTO) 0.1 (0.0-0.1); EOSINOPHILS # (AUTO) 0.2 (0.0-0.4); EOSINOPHILS % 2.5 % (0.0-6.0); HEMATOCRIT 38.3 % (34.2-44.1); HEMOGLOBIN 12.6 g/dL (12.0-16.0); LYMPHOCYTES % 43.1 % (18.0-39.1); MEAN CORPUSCULAR HEMOGLOBIN 30.1 pg (28-32); MEAN CORPUSCULAR HGB CONC 32.9 g/dL (31-35); MEAN CORPUSCULAR VOLUME 91.4 fL (81-99); MONOCYTES # (AUTO) 0.5 (0.2-0.8); MONOCYTES % 5.2 % (4.4-11.3); NEUTROPHILS # (AUTO) 4.5 (2.1-6.9); PLATELET COUNT 326 x10e3/uL (140-360); RED BLOOD COUNT 4.19 x10e6/uL (3.6-5.1); RED CELL DISTRIBUTION WIDTH 13.7 % (11.7-14.4)
--- NOTE | 2018-10-20 19:57 | NUR ---
MD Jalil Astudillo returned page, informed of continued bleeding from femoral cath site, coagulation labs, and cooling and loss of R dorsalis pedal pulse. MD Astudillo stated that MD Ching Gagnon is at [facility] and that he would call him.
[2018-10-20] MEDS: ATORVASTATIN 20 MG TAB PO SCH (20:56)
[2018-10-20] MEDS: INDOMETHACIN 25 MG CAP PO SCH (20:56)
[2018-10-20 21:14] LABS: BASOPHILS # (AUTO) 0.1 (0.0-0.1); BASOPHILS % 0.7 % (0.0-1.0); EOSINOPHILS # (AUTO) 0.2 (0.0-0.4); EOSINOPHILS % 2.3 % (0.0-6.0); HEMATOCRIT 34.8 % (34.2-44.1); HEMOGLOBIN 11.6 g/dL (12.0-16.0); LYMPHOCYTES # (AUTO) 3.8 (1.0-3.2); LYMPHOCYTES % 42.1 % (18.0-39.1); MEAN CORPUSCULAR HEMOGLOBIN 30.2 pg (28-32); MEAN CORPUSCULAR HGB CONC 33.3 g/dL (31-35); MEAN CORPUSCULAR VOLUME 90.6 fL (81-99); MONOCYTES # (AUTO) 0.5 (0.2-0.8); MONOCYTES % 5.3 % (4.4-11.3); NEUTROPHILS # (AUTO) 4.5 (2.1-6.9); NEUTROPHILS % 49.4 % (38.7-80.0); PLATELET COUNT 297 x10e3/uL (140-360); RED BLOOD COUNT 3.84 x10e6/uL (3.6-5.1); RED CELL DISTRIBUTION WIDTH 13.7 % (11.7-14.4)
[2018-10-20] MEDS: SODIUM CHLORIDE 0.9% IV SCH (22:16)
[2018-10-20] MEDS: ALTEPLASE RECOMBINANT IV SCH (22:16)
[2018-10-20] MEDS: ONDANSETRON HCL INJ 2 MG/ML VIAL IV PRN (22:17)
[2018-10-20] MEDS ORDERED: SODIUM CHLORIDE 0.9% 100 ML ONE (22:17)
[2018-10-21] VITALS (31 sets, daily range): BP systolic 83–142; BP diastolic 35–88
[2018-10-21] MEDS: ONDANSETRON HCL INJ 2 MG/ML VIAL IV PRN ×4 (01:56→22:15)
--- NOTE | 2018-10-21 02:00 | NUR ---
pt is continues to have bleeding from sheath, pt denies the urge to use the restroom. Rt foot cool to the touch and also difficult to detect pulses.
[2018-10-21] MEDS: HEPARIN 25,000U/0.45% NS 250ML 250 ML IV SCH (03:02)
[2018-10-21] MEDS: HYDROMORPHONE 2MG/ML 2 MG/ML ML IV PRN ×3 (03:03→17:42)
[2018-10-21 04:55] LABS: BASOPHILS # (AUTO) 0.1 (0.0-0.1); BASOPHILS % 0.7 % (0.0-1.0); EOSINOPHILS # (AUTO) 0.1 (0.0-0.4); EOSINOPHILS % 0.7 % (0.0-6.0); HEMOGLOBIN 9.6 g/dL (12.0-16.0); LYMPHOCYTES # (AUTO) 2.2 (1.0-3.2); LYMPHOCYTES % 30.7 % (18.0-39.1); MEAN CORPUSCULAR HEMOGLOBIN 29.6 pg (28-32); MEAN CORPUSCULAR VOLUME 92.6 fL (81-99); MONOCYTES # (AUTO) 0.4 (0.2-0.8); MONOCYTES % 6.1 % (4.4-11.3); NEUTROPHILS # (AUTO) 4.4 (2.1-6.9); NEUTROPHILS % 61.4 % (38.7-80.0); RED BLOOD COUNT 3.24 x10e6/uL (3.6-5.1); RED CELL DISTRIBUTION WIDTH 13.7 % (11.7-14.4)
[2018-10-21 04:56] LABS: PLATELET COUNT 254 x10e3/uL (140-360)
[2018-10-21 05:05] LABS: INR 0.99
[2018-10-21 05:07] LABS: PARTIAL THROMBOPLASTIN TIME 70.6 seconds (23.8-35.5)
[2018-10-21 05:13] LABS: ANION GAP 13.5 mmol/L (8-16); BLOOD UREA NITROGEN 15 mg/dL (7-26); BUN/CREATININE RATIO 20 (6-25); CALCIUM 7.9 mg/dL (8.4-10.2); CARBON DIOXIDE 22 mmol/L (22-29); CHLORIDE 101 mmol/L (98-107); CREATININE, SERUM 0.74 mg/dL (0.57-1.11); EST GLOMERULAR FILTRATION RATE > 60 ML/MIN (60-); GLUCOSE 275 mg/dL (74-118); POTASSIUM 4.5 mmol/L (3.5-5.1); SODIUM 132 mmol/L (136-145)
--- NOTE | 2018-10-21 07:00 | NUR ---
Rec'd bedside report from HENRY Xie. Significant oozing of blood to site noted, RN states this is the baseline for the past 12 hours, H&H trend noted as well as PLT trend. Heparin gtt at 800 units/hr, alteplase gtt at 8.3 mL infusing to right femoral sheath and NS at 100 mL/hr infusing to left hand PIV. Patient A&O x4, afebrile, BP stable, compliant with maintaining RLE straight and states no questions or concerns at this time. Called Dr Chandler and made aware of patient condition. Will continue to monitor.
[2018-10-21] MEDS: INSULIN LISPRO 100 UNIT/1 ML 3ML VIAL SQ SCH ×7 (07:30→21:19)
[2018-10-21 07:36] LABS: HEMATOCRIT 27.8 % (34.2-44.1); HEMOGLOBIN 9.2 g/dL (12.0-16.0)
[2018-10-21] MEDS: LISINOPRIL 10 MG TAB PO SCH (09:00)
[2018-10-21] MEDS ORDERED: HEPARIN 25,000U/0.45% NS 250ML 250 ML IV SCH (09:45)
[2018-10-21] MEDS: ALTEPLASE RECOMBINANT IV SCH (10:01)
[2018-10-21] MEDS: SODIUM CHLORIDE 0.9% IV SCH (10:01)
[2018-10-21] MEDS: SODIUM CHLORIDE 0.9% 1000ML 1,000 ML IV SCH ×2 (10:02→20:20)
[2018-10-21] MEDS: CLOPIDOGREL BISULFATE 75 MG TAB PO SCH (10:03)
[2018-10-21] MEDS: GABAPENTIN 300 MG CAP PO SCH ×3 (10:03→21:17)
[2018-10-21] MEDS: INDOMETHACIN 25 MG CAP PO SCH ×3 (10:03→21:17)
[2018-10-21] MEDS: ASPIRIN 81 MG ENTERIC COATED PO SCH (10:03)
[2018-10-21 11:14] LABS: INR 0.99
[2018-10-21 11:16] LABS: PARTIAL THROMBOPLASTIN TIME 65.5 seconds (23.8-35.5)
--- NOTE | 2018-10-21 12:15 | NUR ---
Heparin gtt no change per lab results. Bedside report to HENRY Downs, with visualization of right femoral sheath oozing. Patient transferred to Pipeline Gang Supervisor via bed with transport monitor in place.
[2018-10-21] MEDS ORDERED: MIDAZOLAM HCL 2 MG/2 ML VIAL ONE (12:37)
[2018-10-21] MEDS ORDERED: FENTANYL CITRATE/PF 100MCG/2 ML INJ ONE (12:37)
[2018-10-21] MEDS ORDERED: HEPARIN SOD/SOD CHLORIDE 2,000 ML ONE (12:38)
[2018-10-21] MEDS ORDERED: IOPAMIDOL 300MG/ML 100 ML INFUS..BTL IV ONE (12:38)
[2018-10-21] MEDS ORDERED: LIDOCAINE HCL 1% LOCAL INJ 20 ML VIAL ONE (12:38)
[2018-10-21] MEDS ORDERED: IOPAMIDOL 300MG/ML 50ML INFUS..BTL IV ONE (13:01)
[2018-10-21] MEDS ORDERED: SODIUM CHLORIDE 0.9% 50ML 50 ML ONE (13:06)
[2018-10-21] MEDS ORDERED: SODIUM CHLORIDE 0.9% 1000ML 1,000 ML ONE (13:06)
--- NOTE | 2018-10-21 14:00 | NUR ---
Patient to Room 190, BLE pedal pulses palpable, right femoral sheath in place; dressing dry with old dried blood around site. Patient hypotension noted, Dr Chandler aware. Written orders on chart acknowledged. Patient to lie flat until 1999.
[2018-10-21 15:31] LABS: BASOPHILS % 0.4 % (0.0-1.0); EOSINOPHILS # (AUTO) 0.1 (0.0-0.4); HEMATOCRIT 26.5 % (34.2-44.1); HEMOGLOBIN 8.5 g/dL (12.0-16.0); LYMPHOCYTES # (AUTO) 2.5 (1.0-3.2); LYMPHOCYTES % 29.6 % (18.0-39.1); MEAN CORPUSCULAR HGB CONC 32.1 g/dL (31-35); MEAN CORPUSCULAR VOLUME 93.6 fL (81-99); MONOCYTES # (AUTO) 0.5 (0.2-0.8); MONOCYTES % 5.6 % (4.4-11.3); NEUTROPHILS # (AUTO) 5.3 (2.1-6.9); NEUTROPHILS % 63.2 % (38.7-80.0); PLATELET COUNT 221 x10e3/uL (140-360); RED BLOOD COUNT 2.83 x10e6/uL (3.6-5.1); RED CELL DISTRIBUTION WIDTH 13.7 % (11.7-14.4)
--- NOTE | 2018-10-21 16:02 | NUR ---
Current CBC and BP called to Dr Chandler, plan is to draw CBC in a.m.
--- NOTE | 2018-10-21 17:40 | NUR ---
Visit made by the Spiritual Care Department Pastoral Visitor, Sebastian Fierro. PV provided pastoral presence, prayer, hospitality, and supportive listening. Pastoral Visitor informed pt/family of the scope of [employer] and availability. MAGDI KNOX Programming Coordinator Spiritual Care Department O: [phone] Pager: [phone] ([phone] number calling from)
--- NOTE | 2018-10-21 18:26 | NUR ---
Current UEF=[id number]
--- NOTE | 2018-10-21 18:58 | NUR ---
Bedside report given to HENRY Mcintyre.
--- NOTE | 2018-10-21 19:00 | NUR ---
Report received. Assumed care. Assessment done. See interventions. IV NS @ 100ml/hr. Right femoral sheath in place. Dressing with small to moderate bloody drainage.
[2018-10-21] MEDS: ATORVASTATIN 20 MG TAB PO SCH (21:17)
--- NOTE | 2018-10-21 22:41 | NUR ---
ACT @ 0017 was 91. @ 2223 Sheath dcd and manual pressure held x15 min with hemostasis. Pressure drsg applied.
[2018-10-22] VITALS (30 sets, daily range): BP systolic 80–123; BP diastolic 42–69
[2018-10-22] MEDS: SODIUM CHLORIDE 0.9% 1000ML 1,000 ML IV SCH ×2 (04:30→06:40)
--- NOTE | 2018-10-22 04:40 | NUR ---
Bedrest/flat time complete. HOB elevated. Angella perez per request. Advised to call when needs to void.
[2018-10-22 04:56] LABS: BASOPHILS % 0.5 % (0.0-1.0); EOSINOPHILS # (AUTO) 0.1 (0.0-0.4); EOSINOPHILS % 2.1 % (0.0-6.0); LYMPHOCYTES # (AUTO) 2.5 (1.0-3.2); LYMPHOCYTES % 44.3 % (18.0-39.1); MEAN CORPUSCULAR HEMOGLOBIN 29.7 pg (28-32); MEAN CORPUSCULAR HGB CONC 32.1 g/dL (31-35); MEAN CORPUSCULAR VOLUME 92.5 fL (81-99); MONOCYTES # (AUTO) 0.4 (0.2-0.8); MONOCYTES % 6.1 % (4.4-11.3); NEUTROPHILS # (AUTO) 2.7 (2.1-6.9); NEUTROPHILS % 46.8 % (38.7-80.0); PLATELET COUNT 192 x10e3/uL (140-360); RED BLOOD COUNT 2.12 x10e6/uL (3.6-5.1); RED CELL DISTRIBUTION WIDTH 13.6 % (11.7-14.4)
[2018-10-22 05:12] LABS: HEMATOCRIT 19.6 % (34.2-44.1); HEMOGLOBIN 6.3 g/dL (12.0-16.0)
[2018-10-22 05:16] LABS: ANION GAP 11.9 mmol/L (8-16); BLOOD UREA NITROGEN 14 mg/dL (7-26); BUN/CREATININE RATIO 24 (6-25); CALCIUM 7.6 mg/dL (8.4-10.2); CARBON DIOXIDE 19 mmol/L (22-29); CHLORIDE 110 mmol/L (98-107); CREATININE, SERUM 0.59 mg/dL (0.57-1.11); EST GLOMERULAR FILTRATION RATE > 60 ML/MIN (60-); GLUCOSE 224 mg/dL (74-118); POTASSIUM 3.9 mmol/L (3.5-5.1); SODIUM 137 mmol/L (136-145)
--- NOTE | 2018-10-22 06:23 | NUR ---
H/H 6.3/19.6. Call to Dr. Chandler. Dr. Astudillo covering. Left message. Awaiting call back.
--- NOTE | 2018-10-22 07:26 | NUR ---
Bedside report from HENRY Mcintyre. Dr Chandler aware of H&H, orders to transfuse.
[2018-10-22] MEDS ORDERED: SODIUM CHLORIDE 0.9% 250ML 250 ML IV ONE (07:30)
[2018-10-22] MEDS: INSULIN LISPRO 100 UNIT/1 ML 3ML VIAL SQ SCH ×7 (07:54→21:49)
[2018-10-22] MEDS: ONDANSETRON HCL INJ 2 MG/ML VIAL IV PRN (08:09)
--- NOTE | 2018-10-22 08:11 | Operative Report ---
DATE OF PROCEDURE: October 21, 2018 CARDIAC CURRICULUM AND ASSESSMENT COORDINATOR PROCEDURE NOTE PROCEDURES PERFORMED: 1. Thrombectomy of the left femoral artery. 2. Angioplasty of the left femoral artery. 3. Removal of lysis catheter. 4. Third-order catheter placement, right femoral artery, left superficial femoral artery. COMPLICATIONS: None. RECOMMENDATIONS: Triple anticoagulant therapy for the next 3 months. DESCRIPTION OF PROCEDURE: Current sheath was used for access from the right femoral artery, left superficial femoral artery. The lysis catheter was removed. Residual thrombus was noted. AngioJet primary thrombectomy of the left femoral artery was performed. Distal popliteal had a 90% stenosis. Drug-coated balloon angioplasty with a 4-mm balloon was performed. Excellent end result. Two-vessel runoff to the left foot. Right groin sheath was secured in place, removed under manual pressure. Patient transferred to ICU in stable condition. Job#: [id number]
[2018-10-22] MEDS: LISINOPRIL 10 MG TAB PO SCH (09:00)
--- NOTE | 2018-10-22 09:27 | NUR ---
Consent for blood transfusion obtained and on paper chart.
[2018-10-22] MEDS: INDOMETHACIN 25 MG CAP PO SCH ×3 (09:35→21:48)
[2018-10-22] MEDS: GABAPENTIN 300 MG CAP PO SCH ×3 (09:35→21:48)
[2018-10-22] MEDS: CLOPIDOGREL BISULFATE 75 MG TAB PO SCH (09:35)
[2018-10-22] MEDS: ASPIRIN 81 MG ENTERIC COATED PO SCH (09:35)
[2018-10-22] MEDS ORDERED: METRONIDAZOLE 500MG/NS 100ML 100 ML IV SCH (14:00)
--- NOTE | 2018-10-22 15:36 | NUR ---
2 units of PRBCs transfused, patient tolerated well. Patient sat up in chair for 30 minutes and is using BSC with minimal assistance. Patient reading her tablet, at bedside.
--- NOTE | 2018-10-22 15:53 | NUR ---
Attended with Janet Corcoran and Kinjal Nowak to bedside to confer with patient and in regard to heparin infusion. Patient and questions answered.
--- NOTE | 2018-10-22 18:55 | NUR ---
Report given to HENRY Mcintyre. Will call H&H to Dr Astudillo when results available.
--- NOTE | 2018-10-22 19:00 | NUR ---
Report received. Assumed care. Assessment done. See interventions. IV NS @ 100ml/hr.
[2018-10-22 19:12] LABS: HEMATOCRIT 27.4 % (34.2-44.1); HEMOGLOBIN 9.1 g/dL (12.0-16.0)
--- NOTE | 2018-10-22 19:28 | Progress Note ---
DATE: October 22, 2018 CARDIOLOGY PROGRESS NOTE SUBJECTIVE: No major events overnight. Had peripheral angiography and intervention to the left lower extremity yesterday with thrombectomy. OBJECTIVE: VITAL SIGNS: Temperature afebrile. Pulse 79, respiratory rate 15, blood pressure 118/67, satting 100% on room air. GENERAL: Young female, in no acute distress, appears pale. CARDIOVASCULAR: Regular rate and rhythm. No murmurs, rubs, or gallops. LUNGS: Clear to auscultation bilaterally. ABDOMEN: Soft, nontender, nondistended. NEURO AND PSYCH: Alert and oriented to person, place, and time. Normal affect. INPATIENT MEDICATIONS: Reviewed. LABORATORY DATA: Reviewed. Notable for hemoglobin of 6.3. IMAGING DATA: Reviewed. ASSESSMENT: 1. Successful peripheral intervention with 2-vessel runoff and recanalization of superficial femoral artery yesterday, doing well . 2. Peripheral arterial disease. 3. Acute left lower extremity limb ischemia. PLAN: Continue current medications as prescribed including aspirin and Plavix. Will transfuse 2 units today. Thank you for this consult. Will continue to follow. Job#: [id number]
--- NOTE | 2018-10-22 20:11 | NUR ---
Up to BSC to void clear lexie urine. Clark activity well.
--- NOTE | 2018-10-22 21:00 | NUR ---
H&H called to Dr. Astudillo. No new orders.
[2018-10-22] MEDS: ATORVASTATIN 20 MG TAB PO SCH (21:48)
[2018-10-23] VITALS (17 sets, daily range): BP systolic 89–125; BP diastolic 6–70
[2018-10-23] MEDS: SODIUM CHLORIDE 0.9% 1000ML 1,000 ML IV SCH ×2 (00:03→10:30)
--- NOTE | 2018-10-23 07:30 | NUR ---
Patient received awake, alert and Ox4. Respirations are even and unlabored. Denies any pain or discomfort. Slight ecchymosis to right groin catheterization site. Right groin site is dry and open to air. No bleeding noted. V/S are stable. Bilateral feetO are warm and pink with good capillary refill. Pedal pulses are +1 bilaterally.
--- NOTE | 2018-10-23 07:50 | NUR ---
Patient called application architect manager light and assisted to bedside commode and tolerated well. Voided 1000cc of clear, lexie colored urine.
[2018-10-23] MEDS: INSULIN LISPRO 100 UNIT/1 ML 3ML VIAL SQ SCH ×4 (08:07→12:00)
--- NOTE | 2018-10-23 08:38 | NUR ---
Ate 100% of her breakfast and tolerated well. Humalog 19 units given SQ for Blood sugar of 285 and tolerated well
[2018-10-23] MEDS: LISINOPRIL 10 MG TAB PO SCH (09:00)
[2018-10-23] MEDS: ASPIRIN 81 MG ENTERIC COATED PO SCH (09:37)
[2018-10-23] MEDS: INDOMETHACIN 25 MG CAP PO SCH ×2 (09:38→15:00)
[2018-10-23] MEDS: GABAPENTIN 300 MG CAP PO SCH ×2 (09:38→15:00)
[2018-10-23] MEDS: CLOPIDOGREL BISULFATE 75 MG TAB PO SCH (09:38)
--- NOTE | 2018-10-23 11:00 | NUR ---
Dr. Ching Gagnon here to see patient.
--- NOTE | 2018-10-23 15:59 | Progress Note ---
DATE: October 23, 2018 SUBJECTIVE: No major events overnight. Feels better today. OBJECTIVE VITAL SIGNS: Temperature afebrile, pulse 80, respiratory rate 18, blood pressure 117/63, satting 99% on room air. GENERAL: Well-developed, well-nourished female in no acute distress. CARDIOVASCULAR: Regular rate and rhythm. No murmurs, rubs or gallops. Palpable carotid pulses. Palpable radial pulses. Right groin with some ecchymosis. Otherwise, palpable pulses. No significant hematoma. Left lower extremity warm and well perfused. LUNGS: Clear to auscultation bilaterally. ABDOMEN: Soft, nontender, nondistended. NEURO AND PSYCH: Alert and oriented to person, place, and time. Normal affect. INPATIENT MEDICATIONS: Reviewed. LABORATORY DATA: Reviewed. Shows hemoglobin improved from 6.3 to 9.1 today after transfusion. No signs of bleeding. IMAGING DATA: Reviewed. ASSESSMENT AND PLAN 1. Successful peripheral intervention with 2-vessel runoff and recanalization of the left superficial femoral artery, doing well post procedure. Required 2 units of blood with appropriate bump in hemoglobin. 2. Peripheral arterial disease. 3. Acute left lower extremity limb ischemia. PLAN: Patient is doing much better today. Ambulating, no issues. Okay to be discharged from a cardiovascular standpoint on current medical regimen including aspirin, Plavix and Eliquis. Patient will follow up in clinic 1 to 2 weeks post discharge for further evaluation. Thank you for this consult. We will continue to follow. Job#: [id number]
--- NOTE | 2018-10-23 16:25 | NUR ---
Patient discharged via wheelchair and here to take her home. IV d/c'd and tolerated well. B/P now is 112/64 and heart rate is 88. Denies any pain or discomfort. Patient given written D/C instructions and copy to chart. Instructed on Discharge medications and activity. Will Follow up with Dr. Chandler in one week
== END 2018-10-23 16:30 | disposition home or self-care (01) | DRG 272 ==
LOC: CATH LAB 09:32 → CATH LAB V 12:32 → ICU 16:09
PROVIDERS: ADMIT Internal Medicine Interventional Cardiology; ATTEND Internal Medicine Interventional Cardiology
PROC: 047L3Z1 Dilation of Left Femoral Artery using Drug-Coated Balloon, Percutaneous Approach (ICD-10-PCS; 2018-10-20)
PROC: 047K3ZZ Dilation of Right Femoral Artery, Percutaneous Approach (ICD-10-PCS; 2018-10-20)
PROC: 047Q3ZZ Dilation of Left Anterior Tibial Artery, Percutaneous Approach (ICD-10-PCS; 2018-10-20)
PROC: 04CL3ZZ Extirpation of Matter from Left Femoral Artery, Percutaneous Approach (ICD-10-PCS; 2018-10-20)
PROC: B41D1ZZ Fluoroscopy of Aorta and Bilateral Lower Extremity Arteries using Low Osmolar Contrast (ICD-10-PCS; 2018-10-20)
PROC: 047L3ZZ Dilation of Left Femoral Artery, Percutaneous Approach (ICD-10-PCS; principal; 2018-10-21)
PROC: 04CL3ZZ Extirpation of Matter from Left Femoral Artery, Percutaneous Approach (ICD-10-PCS; 2018-10-21)
PROC: 047N3Z1 Dilation of Left Popliteal Artery using Drug-Coated Balloon, Percutaneous Approach (ICD-10-PCS; 2018-10-21)
PROC: 30243N1 Transfusion of Nonautologous Red Blood Cells into Central Vein, Percutaneous Approach (ICD-10-PCS; 2018-10-22)
DX: E11.51 Type 2 diabetes mellitus with diabetic peripheral angiopathy without gangrene (principal); Z79.4 Long term (current) use of insulin; I70.213 Atherosclerosis of native arteries of extremities with intermittent claudication, bilateral legs; F17.210 Nicotine dependence, cigarettes, uncomplicated; E78.00 Pure hypercholesterolemia, unspecified
CPT/HCPCS: 36247; 36415; 37186; 37211; 37224; 37225; 75625; 75710; 80048; 80053; 80061; 82948; 85014; 85018; 85025; 85347; 85610; 85730; 86850; 86900; 86920; 96372; 96375; 96376; C1725; C1769; C2623; J1644; J2001; J2250; J2270; J2405; J2997; J7030; J7050; P9016; Q9967

== ENCOUNTER → 2019-01-22 | Outpatient (CLI) | payer OTHER ==
--- NOTE | 2019-01-22 12:04 | Diagnostic Imaging Report ---
EXAM: CHEST 2 VIEWS, PA and lateral DATE: 01/22/2019 Time stamp on exam: 11:07 AM INDICATION: Preoperative for hyperbaric chamber COMPARISON: None FINDINGS: LINES/TUBES: None LUNGS: No consolidations or edema. PLEURA: No effusions or pneumothorax. HEART AND MEDIASTINUM: Normal size and contour. BONES AND SOFT TISSUES: No acute findings. Anterior cervical fixation plate involving the lower cervical spine vertebral bodies. IMPRESSION: No acute thoracic abnormality. Signed by: Dr. Tavon Guevara DO on 01/22/2019 12:01 PM
--- NOTE | 2019-01-22 12:07 | Diagnostic Imaging Report ---
Exam: Right ankle series; 3 views dated 01/22/2019 at 1108 hours. History: Diabetes Comparison: None available Findings:There is no fracture or dislocation. Spurring of the calcaneus at the insertion of the Achilles tendon is present. No obvious soft tissue abnormality or calcification. There is no soft tissue ulceration or obvious findings of osteomyelitis. The ankle mortise is intact. Impression: Mild calcaneal spurring. Signed by: Dr. Tavon Guevara DO on 01/22/2019 12:03 PM
== END ==
LOC: WCC 10:58
PROVIDERS: ATTEND Internal Medicine Infectious Disease
DX: E11.621 Type 2 diabetes mellitus with foot ulcer (principal); E11.51 Type 2 diabetes mellitus with diabetic peripheral angiopathy without gangrene; L97.411 Non-pressure chronic ulcer of right heel and midfoot limited to breakdown of skin; I70.203 Unspecified atherosclerosis of native arteries of extremities, bilateral legs; G90.09 Other idiopathic peripheral autonomic neuropathy; E78.00 Pure hypercholesterolemia, unspecified; I95.89 Other hypotension; N32.89 Other specified disorders of bladder; Z79.4 Long term (current) use of insulin; Z01.810 Encounter for preprocedural cardiovascular examination; Z01.811 Encounter for preprocedural respiratory examination; F17.210 Nicotine dependence, cigarettes, uncomplicated
CPT/HCPCS: 71046; 93005

== ENCOUNTER → 2019-01-25 | Outpatient (CLI) | payer OTHER ==
[~2019-01-25] MED LIST changes: +MUPIROCIN 2% OINT 22 GM TUBE ONE
[2019-01-25 16:22] LABS: BASOPHILS # (AUTO) 0.1 (0.0-0.1); EOSINOPHILS # (AUTO) 0.3 (0.0-0.4); EOSINOPHILS % 3.4 % (0.0-6.0); HEMATOCRIT 29.8 % (34.2-44.1); HEMOGLOBIN 9.8 g/dL (12.0-16.0); LYMPHOCYTES # (AUTO) 2.2 (1.0-3.2); LYMPHOCYTES % 27.4 % (18.0-39.1); MEAN CORPUSCULAR HEMOGLOBIN 29.1 pg (28-32); MEAN CORPUSCULAR HGB CONC 32.9 g/dL (31-35); MEAN CORPUSCULAR VOLUME 88.4 fL (81-99); MONOCYTES # (AUTO) 0.6 (0.2-0.8); MONOCYTES % 7.3 % (4.4-11.3); NEUTROPHILS # (AUTO) 4.8 (2.1-6.9); NEUTROPHILS % 60.5 % (38.7-80.0); PLATELET COUNT 350 x10e3/uL (140-360); RED BLOOD COUNT 3.37 x10e6/uL (3.6-5.1); RED CELL DISTRIBUTION WIDTH 13.1 % (11.7-14.4)
[2019-01-25 16:47] LABS: ALBUMIN/GLOBULIN RATIO 0.9 (0.8-2.0); ANION GAP 16.9 mmol/L (8-16); CREATININE, SERUM 1.52 mg/dL (0.57-1.11)
[2019-01-25 16:50] LABS: POTASSIUM 5.9 mmol/L (3.5-5.1)
[2019-01-25 16:56] LABS: ERYTHROCYTE SEDIMENTATION RATE 58 mm/hr (0-20)
== END ==
LOC: WCC 13:44
PROVIDERS: ATTEND Podiatrist Foot & Ankle Surgery
DX: E11.621 Type 2 diabetes mellitus with foot ulcer (principal); E11.51 Type 2 diabetes mellitus with diabetic peripheral angiopathy without gangrene; L97.411 Non-pressure chronic ulcer of right heel and midfoot limited to breakdown of skin; E78.00 Pure hypercholesterolemia, unspecified; G90.09 Other idiopathic peripheral autonomic neuropathy; I70.203 Unspecified atherosclerosis of native arteries of extremities, bilateral legs; I95.89 Other hypotension; N32.89 Other specified disorders of bladder; Z01.810 Encounter for preprocedural cardiovascular examination; Z01.811 Encounter for preprocedural respiratory examination; Z79.4 Long term (current) use of insulin; F17.210 Nicotine dependence, cigarettes, uncomplicated
CPT/HCPCS: 36415; 80053; 83036; 84134; 85025; 85651; 86140

== ENCOUNTER → 2019-01-29 | Day surgery (SDC) | payer OTHER ==
[2019-01-28 16:37] LABS: BASOPHILS % 0.4 % (0.0-1.0); EOSINOPHILS # (AUTO) 0.3 (0.0-0.4); EOSINOPHILS % 3.4 % (0.0-6.0); HEMATOCRIT 33.3 % (34.2-44.1); HEMOGLOBIN 10.8 g/dL (12.0-16.0); LYMPHOCYTES # (AUTO) 2.1 (1.0-3.2); LYMPHOCYTES % 27.6 % (18.0-39.1); MEAN CORPUSCULAR HGB CONC 32.4 g/dL (31-35); MEAN CORPUSCULAR VOLUME 89.5 fL (81-99); MONOCYTES # (AUTO) 0.4 (0.2-0.8); MONOCYTES % 5.9 % (4.4-11.3); NEUTROPHILS # (AUTO) 4.6 (2.1-6.9); PLATELET COUNT 466 x10e3/uL (140-360); RED BLOOD COUNT 3.72 x10e6/uL (3.6-5.1); RED CELL DISTRIBUTION WIDTH 13.1 % (11.7-14.4)
[2019-01-28 16:47] LABS: INR 0.95; PROTHROMBIN TIME 13.2 seconds (11.9-14.5)
[2019-01-28 16:55] LABS: ALBUMIN 3.4 g/dL (3.5-5.0); ALBUMIN/GLOBULIN RATIO 0.8 (0.8-2.0); ANION GAP 17.5 mmol/L (8-16); CALCIUM 9.7 mg/dL (8.4-10.2); CREATININE, SERUM 1.45 mg/dL (0.57-1.11)
[2019-01-28 17:02] LABS: POTASSIUM 5.5 mmol/L (3.5-5.1)
[~2019-01-29] VITALS: Ht 162.6 cm; Wt 73.9 kg
[~2019-01-29] MED LIST changes: +CLINDAMYCIN HC150 MG PO; +FENTANYL CITRATE/PF 100MCG/2 ML INJ ONE; +HEPARIN SOD/SOD CHLORIDE 2,000 ML ONE; +INDOMETHACIN50 MG PO; +IOPAMIDOL 300MG/ML 100 ML INFUS..BTL IV ONE; +LANTUS 3ML100 UNITS/ SC; +LIDOCAINE HCL 2% LOCAL 20 ML VIAL ONE; +MIDAZOLAM HCL 2 MG/2 ML VIAL ONE; +MORPHINE SULFATE INJ 4 MG/ML INJ 1ML ONE; -MUPIROCIN 2% OINT 22 GM TUBE ONE; +MUPIROCIN22 GM TOP; +SODIUM CHLORIDE 0.9% 1000ML 1,000 ML ONE; +SULFAMETHOXAZOLE PO; +TRESIBA INSULIN SC; +VERAPAMIL HCL 2.5 MG/ML 2 ML VIAL ONE; +XARELTO20 MG PO; +[UNRECOGNIZED DRUG - OTHER]; +[UNRECOGNIZED DRUG - OTHER]
[2019-01-29 12:18] VITALS: BP 83/59
[2019-01-29 14:55] VITALS: BP 149/86
--- NOTE | 2019-01-29 15:45 | NUR ---
5934 Called to bedside pt experiencing pain 5/10 post peripheral pain left leg. medicated 2mg Morphine ivp slowly. Flushed well with NS patient noted with immediate results of relief bp 145/68-71-10 100% on RA. at bedside. Bedside nurse Glendy FIGUEROA resuming care. Side rails up call light at bedside Bed in low position. No distress. ds/rn
[2019-01-29 16:15] VITALS: BP 143/67
--- NOTE | 2019-01-29 16:15 | NUR ---
5507 resumed care for pt L groin Perclose Dr Chandler fix Left SFA Handoff report Glendy Rn for dc in 45min DC papers reviewed and aware of f/o care Site w/o gross issues of pain pallor,pressure,bleeding or and Dysrhythmia. Family at bedside. Tolerating po intake well. Back to baseline orientation. Aware of importance of followup care. Will be returning to wound care treatment. Bilateral ppx4 present . Rt lateral wound covered with bandage. Vs stable Denies no discomfort and Morphine covered procedural discomfort.
[2019-01-29 17:00] VITALS: BP_SYST 134; BP_SYST 136; BP_DIAS 77; BP_DIAS 79
--- NOTE | 2019-01-29 17:00 | NUR ---
1700 Sitting up readyv discharged home with family escort. Tolerated po intake well.Iv removed site w/o s/s infiltration. Coban dressing intact. Has copies of POC and aware of importance of f/o care .Escorted to car by w/c. Left Perclose site dry w/o s/s hematoma, or bleeding Aware of precautions.Denies Cp or sob aware of importance of f/o care at wound center and Dr Chandler office.Post vs 136/77-84-19 ,98.7(T)100% sat RA ds/rn
--- NOTE | 2019-01-31 00:54 | Operative Report ---
DATE OF PROCEDURE: 01/29/2019 SURGEON: Keenan Chandler MD Cardiac Knitter Wire Mesh Procedure INDICATIONS: Peripheral arterial disease, claudication of both lower extremities. PROCEDURES PERFORMED: 1. Abdominal aortogram with aortic catheter placement. 2. Selective third-order catheter placement in left femoral artery to right superficial femoral artery. 3. Additional third-order catheter placement from the left tibial artery to the right anterior tibial artery. 4. Atherectomy and drug-coated balloon angioplasty of the right femoral artery. 5. Secondary thrombectomy of the right femoral artery. 6. Deployment of left groin Perclose closure device. 7. Bilateral lower extremity angiograms. COMPLICATIONS: None. BLOOD LOSS: Minimal. RECOMMENDATIONS: Dual-antiplatelet therapy for life. Left femoral artery intervention for occluded stent. DESCRIPTION OF PROCEDURE: Access was obtained in the left femoral artery, 6-Mongolian sheath was placed. The abdominal aortogram demonstrates small abdominal aorta and iliacs with less than 50% stenosis of the right common iliac artery. The right femoral artery is not well visualized. The catheter was advanced in the left femoral artery to right superficial femoral artery confirming complete occlusion of the right femoral artery. Distal vessels could not be seen. The catheter was then advanced further into the right anterior tibial artery confirming three-vessel runoff to the right femoral artery. The left femoral artery stent was occluded with two-vessel runoff to the left foot. A decision was made to intervene on the right femoral artery. The patient received heparin for anticoagulation along with oral Brilinta and aspirin. The lesion was crossed using a Glidewire, orbital atherectomy using a 2.0 mm solid CSI crown was performed, large amounts of visible thrombus with manual aspiration thrombectomy was needed. Balloon angioplasty with drug-coated balloon 5 and 6 cmm in size was performed. Excellent end result with less than 10% residual stenosis. Three-vessel runoff to the right foot. No complications. Left groin repaired using Perclose closure device. The patient was discharged home same day. Keenan Chandler MD KSB/MODL /[id number]
== END | disposition home or self-care (01) ==
LOC: CATH LAB 14:00
PROVIDERS: ATTEND Internal Medicine Interventional Cardiology
DX: I70.213 Atherosclerosis of native arteries of extremities with intermittent claudication, bilateral legs (principal); Z95.820 Peripheral vascular angioplasty status with implants and grafts; I10 Essential (primary) hypertension; I82.90 Acute embolism and thrombosis of unspecified vein; Z01.812 Encounter for preprocedural laboratory examination; Z79.82 Long term (current) use of aspirin; Z79.4 Long term (current) use of insulin; Z79.02 Long term (current) use of antithrombotics/antiplatelets
CPT/HCPCS: 36415; 37186; 37225; 75625; 75716; 80053; 85025; 85610; C1724; C1725; C1769 ×2; C1887 ×2; C2623 ×2; J2001; J2250; J2270; J7030; Q9967; 36247

== ENCOUNTER → 2019-02-01 | Outpatient (CLI) | payer OTHER ==
[~2019-02-01] MED LIST changes: +COLLAGENASE OINTMENT 30 GM TUBE ONE; -FENTANYL CITRATE/PF 100MCG/2 ML INJ ONE; -HEPARIN SOD/SOD CHLORIDE 2,000 ML ONE; -IOPAMIDOL 300MG/ML 100 ML INFUS..BTL IV ONE; -LANTUS 3ML100 UNITS/ SC; -LIDOCAINE HCL 2% LOCAL 20 ML VIAL ONE; -MIDAZOLAM HCL 2 MG/2 ML VIAL ONE; -MORPHINE SULFATE INJ 4 MG/ML INJ 1ML ONE; -SODIUM CHLORIDE 0.9% 1000ML 1,000 ML ONE; -VERAPAMIL HCL 2.5 MG/ML 2 ML VIAL ONE; -XARELTO20 MG PO
== END ==
LOC: WCC 15:46
PROVIDERS: ATTEND Podiatrist Foot & Ankle Surgery
DX: E11.621 Type 2 diabetes mellitus with foot ulcer (principal); L97.411 Non-pressure chronic ulcer of right heel and midfoot limited to breakdown of skin; I73.89 Other specified peripheral vascular diseases; Z01.810 Encounter for preprocedural cardiovascular examination; Z01.811 Encounter for preprocedural respiratory examination; Z79.4 Long term (current) use of insulin
CPT/HCPCS: 87071; 87075; 87205

== ENCOUNTER 2019-02-03 07:02 | Inpatient (IN) | payer OTHER ==
[~2019-02-03] VITALS: Ht 162.6 cm; Wt 73.9 kg
[~2019-02-03 07:02] MED LIST changes: -COLLAGENASE OINTMENT 30 GM TUBE ONE
--- NOTE | 2019-02-03 07:25 | NUR ---
RT POSTERIOR TIB. PULSE PALPABLE. NO DORSALIS PEDI PULSE NOTED ON TOP OF RT FOOT BUT CAP REFILL < 2 SECONDS. LEG AND FOOT WARM AND PINK. LEFT LEG MOTTLED AND COLD TOO TOUCH. NO PALPABLE PEDAL PULSES OR DOPPLER PULSES AND MD NOTIFIED STAT.
--- NOTE | 2019-02-03 07:43 | NUR ---
AT BEDSIDE WITH PT
[2019-02-03] MEDS ORDERED: SODIUM CHLORIDE 0.9% 1000ML 1,000 ML ONE (07:52)
[2019-02-03] MEDS ORDERED: SODIUM CHLORIDE 0.9% 1000ML 1,000 ML IV STA ×2 (07:53→08:45)
[2019-02-03] MEDS ORDERED: FENTANYL CITRATE/PF 100MCG/2 ML INJ ONE (07:54)
[2019-02-03 07:59] LABS: BASOPHILS # (AUTO) 0.1 (0.0-0.1); BASOPHILS % 0.5 % (0.0-1.0); EOSINOPHILS # (AUTO) 0.3 (0.0-0.4); EOSINOPHILS % 1.3 % (0.0-6.0); HEMATOCRIT 31.8 % (34.2-44.1); HEMOGLOBIN 10.5 g/dL (12.0-16.0); LYMPHOCYTES # (AUTO) 2.5 (1.0-3.2); LYMPHOCYTES % 11.6 % (18.0-39.1); MEAN CORPUSCULAR HEMOGLOBIN 29.2 pg (28-32); MEAN CORPUSCULAR VOLUME 88.3 fL (81-99); MONOCYTES # (AUTO) 0.7 (0.2-0.8); MONOCYTES % 3.1 % (4.4-11.3); NEUTROPHILS # (AUTO) 17.8 (2.1-6.9); NEUTROPHILS % 82.8 % (38.7-80.0); PLATELET COUNT 558 x10e3/uL (140-360); RED CELL DISTRIBUTION WIDTH 12.9 % (11.7-14.4)
[2019-02-03] MEDS ORDERED: FENTANYL CITRATE/PF 100MCG/2 ML INJ IV ONE ×2 (08:00→10:30)
[2019-02-03 08:10] LABS: INR 1.33; PROTHROMBIN TIME 17.1 seconds (11.9-14.5)
[2019-02-03 08:21] LABS: ALANINE AMINOTRANSFERASE 12 IU/L (0-55); ALBUMIN 3.6 g/dL (3.5-5.0); ALBUMIN/GLOBULIN RATIO 0.9 (0.8-2.0); ALKALINE PHOSPHATASE 89 IU/L (40-150); ANION GAP 22.5 mmol/L (8-16); BLOOD UREA NITROGEN 43 mg/dL (7-26); BUN/CREATININE RATIO 11 (6-25); CALCIUM 9.4 mg/dL (8.4-10.2); CARBON DIOXIDE 19 mmol/L (22-29); CHLORIDE 98 mmol/L (98-107); CREATINE KINASE 508 IU/L (29-168); CREATININE, SERUM 4.09 mg/dL (0.57-1.11); EST GLOMERULAR FILTRATION RATE 12 ML/MIN (60-); POTASSIUM 5.5 mmol/L (3.5-5.1); SODIUM 134 mmol/L (136-145)
[2019-02-03 08:38] LABS: GLUCOSE 435 mg/dL (74-118)
[2019-02-03] MEDS ORDERED: SODIUM CHLORIDE 0.9% 1000ML 1,000 ML IV SCH ×2 (08:45→11:02)
[2019-02-03] MEDS ORDERED: SODIUM CHLORIDE 0.9% 1000ML 1,000 ML IV ONE (08:45)
[2019-02-03] MEDS ORDERED: INSULIN LISPRO 100 UNIT/1 ML 3ML VIAL SQ STA (10:45)
[2019-02-03 11:15] LABS: ANION GAP 13.3 mmol/L (8-16); CALCIUM 7.6 mg/dL (8.4-10.2); CREATININE, SERUM 2.87 mg/dL (0.57-1.11); POTASSIUM 5.3 mmol/L (3.5-5.1)
[2019-02-03] MEDS ORDERED: HYDROMORPHONE 1MG/1ML INJ IV PRN (11:15)
--- NOTE | 2019-02-03 11:15 | NUR ---
Fluids turned down to 125 mL's per hour at this time.
[2019-02-03] MEDS ORDERED: SOD POLYSTYRENE SULFONATE SUSP 15 GM/60 ML BTL PO ONE (11:45)
[2019-02-03] MEDS ORDERED: LACTULOSE SYRUP 20 GM/30 ML UDC PO ONE (11:45)
--- NOTE | 2019-02-03 11:45 | NUR ---
Patient states she has not urinated in almost 2 days. Patient states she does not feel like she needs to urinate. Will insert Burks catheter for urinary retention as ordered by ER physician.
--- NOTE | 2019-02-03 11:58 | NUR ---
Approx 900 mL's noted after Burks catheter insertion.
[2019-02-03] MEDS ORDERED: DEXTROSE 50% SYRINGE 50 ML IV PRN (12:15)
--- NOTE | 2019-02-03 12:50 | NUR ---
Patient transported to room 290 with tele applied.
[2019-02-03 12:53] VITALS: BP 117/57
[2019-02-03 12:55] VITALS: BP 117/57
--- NOTE | 2019-02-03 12:55 | NUR ---
RECEIVED PATIENT TO ROOM 290, SHE IS IN STABLE CONDITION. ORIENTED TO ROOM AND POLICIES. PAIN AT A TOLERABLE LEVEL. ADMISSION HISTORY AND INITIAL PHYSICAL ASSESSMENT COMPLETED. CALL LIGHT WITHIN REACH. BED IN THE LOWEST POSITION.
[2019-02-03 13:04] VITALS: BP 117/57
[2019-02-03] MEDS: HYDROMORPHONE 2MG/ML 2 MG/ML ML IV PRN ×3 (15:31→22:59)
[2019-02-03 16:22] VITALS: BP 117/57
[2019-02-03] MEDS ORDERED: VANCOMYCIN 1GM/NS 250 ML 250 ML IV ONE (16:45)
[2019-02-03] MEDS: INSULIN LISPRO 100 UNIT/1 ML 3ML VIAL SQ SCH ×2 (16:56→21:30)
--- NOTE | 2019-02-03 17:02 | Diagnostic Imaging Report ---
EXAM: Renal Ultrasound INDICATION: DARIA. COMPARISON: None TECHNIQUE: Transverse and longitudinal images of the kidneys and bladder were obtained. FINDINGS: Right Kidney: Length: Measures 11.2 x 4.5 x 5.3 cm Appearance: Normal echogenicity. Collecting system: No hydronephrosis Stones: None Cyst/Mass: None Left Kidney: Length: Measures 12.9 x 5.0 x 4.6 cm Appearance: Normal echogenicity. Collecting system: No hydronephrosis Stones: None Cyst/Mass: None Bladder: Burks catheter present within a decompressed bladder. IMPRESSION: Unremarkable renal ultrasound. No evidence of hydronephrosis. Signed by: Dr. Rhona Khan MD on 02/03/2019 4:59 PM
[2019-02-03] MEDS: CEFTRIAXONE SOD 1 GM/NS 50 ML 50 ML IV SCH (17:08)
[2019-02-03 17:34] LABS: BILIRUBIN,URINE NEGATIVE (NEGATIVE); CLARITY,URINE SL CLOUDY (CLEAR); COLOR,URINE YELLOW (YELLOW); KETONES,URINE NEGATIVE (NEGATIVE); LEUKOCYTE ESTERASE ,URINE NEGATIVE (NEGATIVE); NITRITE,URINE NEGATIVE (NEGATIVE); PROTEIN,URINE DIPSTICK NEGATIVE (NEGATIVE); URINE UROBILINOGEN 0.2 mg/dL (0.2 - 1)
[2019-02-03] MEDS: SODIUM BICARBONATE 8.4% SYRING 150 ML in DEXTROSE 5% 1,000 ML IV SCH (17:47)
[2019-02-03 17:49] LABS: BACTERIA,URINE MODERATE /HPF; EPITHELIAL CELLS,URINE MODERATE /LPF
[2019-02-03 18:00] LABS: CREATININE,URINE RANDOM 80.11 mg/dL (47-110); TOTAL PROTEIN, URINE 22.9 mg/dL (1-14)
--- NOTE | 2019-02-03 19:28 | NUR ---
REPORT GIVEN TO ONCOMING NURSE. PATIENT IS RESTING IN BED, NO ACUTE DISTRESS NOTED. CALL LIGHT WITHIN REACH. BED IN THE LOWEST POSITION.
[2019-02-03 19:41] VITALS: BP 137/67
--- NOTE | 2019-02-03 19:41 | NUR ---
PT IS RESTING IN BED. NO RESPIRATORY DISTRESS NOTED. BED IN THE LOWEST ROOM, LOCKED, AND CALL LIGHT WITHIN REACH.
[2019-02-03 20:00] VITALS: BP 137/67
--- NOTE | 2019-02-03 23:13 | Consultation ---
DATE OF CONSULTATION: 02/03/2019 HISTORY OF PRESENT ILLNESS: This is a 48-year-old female, who on Friday, underwent angiogram of her right lower extremity by Dr. Chandler. The access area was the left femoral vein. Friday, she developed some pain in the left lower extremity, which has gradually gone worse, somewhat so that she could not sleep last night. She presented to the emergency room, where she was found to have acute kidney injury. The patient denies prior history of any renal insufficiency or kidney stone disease. She has been a diabetic since the last 25 years that she knows off. She has retinopathy, neuropathy, and peripheral vascular disease. She has been on gabapentin, indomethacin, insulin, lisinopril, metformin, and apparently Bactrim at home. She is currently lying supine. She received a dose of Dilaudid and she feels better. She has an indwelling Burks catheter. She is nonoliguric. Laboratory test shows white count 21.5, hemoglobin 10.5 with a potassium of 5.3, bicarbonate 18, creatinine 2.87, and lactic acid 25.7. SOCIAL HISTORY: Does not smoke or drink. PAST HISTORY: History of insulin-dependent diabetes plus on metformin and history of end-organ damage due to diabetes. She denies any history of MS or CVA. Apparently had a bladder diversion procedure what sounds like at [facility] many years ago. They used a piece of her appendix to make an opening in the umbilicus and she used to straight cath through that on a scheduled basis because she does not feel the urge to urinate, but here lately she has not been doing that. She has been urinating normally through her urethra, then again she does not feel any urge to urinate. For hyperkalemia in the emergency room, she did receive some Kayexalate. MEDICATIONS: Her current medications are lactulose, insulin. She received some fentanyl. She received normal saline 1 L IV. PHYSICAL EXAMINATION: GENERAL/VITAL SIGNS: On exam, awake, alert, lying supine in no apparent distress with a blood pressure of 130/60, pulse rate 80, and respiratory rate 14. HEAD and NECK: Cornea clear. Oral mucosa moist. Neck veins flat. LUNGS: Relatively clear. HEART: S1, S2 audible. ABDOMEN: Otherwise soft and nontender. EXTREMITIES: Lower extremity examination, there is still a dressing noted in the left groin. No obvious hematoma or ecchymosis noted. Her right lower extremity is warm. The left lower extremity also shows very mild cyanosis of the toes if at all. I could not appreciate dorsalis pedis or pedis or posterior tibial, but the foot is warm. IMPRESSION AND PLAN: Acute kidney injury with evidence of lactic acidosis, elevated white count, hyperkalemia, metabolic acidosis, anion gap is 13. Doubt we are dealing with ketosis. This is probably infection related, possible ATN. Urine is nice and yellow. We will send urinalysis, spot urine protein-creatinine ratio, urine culture. We will obtain blood cultures. We will obtain a CK, creatine kinase. We will start empiric antibiotics. She is not allergic to any medications. We will give her a dose of IV vancomycin and start her on ceftriaxone. Obtain kidney ultrasound. At some point, I will need a CT of the abdomen and pelvis without contrast to see exactly what kind of conduit was surgically made at [facility] involving her appendix. Please see orders. MD IBRAHIMA Chamorro/LIZ /[id number]
--- NOTE | 2019-02-03 23:54 | Consultation ---
DATE OF CONSULTATION: 02/03/2019 Cardiology Consult Note REASON FOR CONSULT: Left lower extremity pain and peripheral arterial disease. CHIEF COMPLAINT: Left lower extremity pain, nausea, and vomiting. HISTORY OF PRESENT ILLNESS: The patient is a 48-year-old female with history of severe peripheral arterial disease, status post multiple stenting procedures to bilateral SFAs in the past, had stent thrombosis in the past, requiring Xarelto therapy. She recently had peripheral angiography and intervention of right lower extremity with excellent results and reopening of right SFA-EQUIPMENT CLEANER AND TESTER yesterday. She said she was feeling okay and suddenly started experiencing left lower extremity pain as well as is feeling unwell generally, felt really bad and had to come to the hospital. Upon arrival to the hospital, was found to be hypotensive, tachycardic, had elevated lactic acidosis, all consistent with severe sepsis. The patient was given 2 L of IV fluids and was started on IV antibiotics and is feeling significantly better since then. When she presented to the ER, her left leg was extremely cool to touch, but since her blood pressure improved and with some warm blankets, this has improved. Denies any ongoing pain in her left lower extremity. At this time, no ulceration or skin breakdown. PAST MEDICAL HISTORY: 1. Peripheral arterial disease, status post multiple interventions to bilateral lower extremities. 2. Hypertension. 3. Hyperlipidemia. REVIEW OF SYSTEMS: As per HPI, otherwise negative. FAMILY HISTORY: No family history of early CAD or sudden cardiac . SOCIAL HISTORY: The patient does not smoke, drink, or abuse drugs. OUTPATIENT MEDICATIONS: Reviewed. OBJECTIVE: VITAL SIGNS: Temperature 97.4, pulse 101, respiratory rate 18, blood pressure 117/57, and saturating 100% on 2 L nasal cannula. GENERAL: female, in no acute distress. CARDIOVASCULAR: Regular rate and rhythm. No murmurs, rubs, or gallops. EXTREMITIES: Lower extremity, toes are cool to touch with slow capillary refill, however, there is no cyanosis. Her left lower extremity is otherwise warm above the level of her toes. Pulses are not palpable on left lower extremity. LUNGS: Clear to auscultation bilaterally. ABDOMEN: Soft, nontender, and nondistended. NEURO and PSYCH: Alert and oriented to person, place, and time. Normal affect. INPATIENT MEDICATIONS: Reviewed. LABORATORY DATA: Reviewed notable for a white count of 22, creatinine of 2.8, elevated lactate on presentation of 61, improved to 25 with fluids. IMAGING DATA: Reviewed. Peripheral Dopplers are pending. ASSESSMENT: 1. Peripheral arterial disease. 2. Left lower extremity pain. 3. Sepsis. 4. Acute kidney injury. PLAN: The patient needs intervention of left lower extremity, PAD given that she has an episode of breast pain likely due to hypotension resulting in ischemia of the left lower extremity. Currently, perfusion has improved. We will wait for peripheral angiography and intervention until her DARIA improves and clinically improves from sepsis. Continue her outpatient cardiovascular medications including aspirin and Plavix in the meantime. If she has any more rest pain to left lower extremity, I will recommend starting IV heparin. Peripheral arterial Dopplers are pending. Thank you for this consult. We will continue to follow. MD KILEY Traore/LIZ /[id number]
[2019-02-04] VITALS (8 sets, daily range): BP systolic 99–168; BP diastolic 56–83
[2019-02-04] MEDS: HYDROMORPHONE 2MG/ML 2 MG/ML ML IV PRN ×6 (02:04→20:42)
[2019-02-04] MEDS: ONDANSETRON HCL INJ 2MG/ML 2ML 2 MG/ML VIAL IV PRN ×4 (03:41→14:29)
[2019-02-04] MEDS: SODIUM BICARBONATE 8.4% SYRING 150 ML in DEXTROSE 5% 1,000 ML IV SCH ×2 (05:57→17:12)
[2019-02-04 06:43] LABS: BASOPHILS # (AUTO) 0.1 (0.0-0.1); BASOPHILS % 0.6 % (0.0-1.0); EOSINOPHILS # (AUTO) 0.5 (0.0-0.4); EOSINOPHILS % 4.7 % (0.0-6.0); HEMATOCRIT 25.7 % (34.2-44.1); HEMOGLOBIN 8.4 g/dL (12.0-16.0); LYMPHOCYTES # (AUTO) 2.7 (1.0-3.2); LYMPHOCYTES % 25.4 % (18.0-39.1); MEAN CORPUSCULAR HEMOGLOBIN 29.1 pg (28-32); MEAN CORPUSCULAR HGB CONC 32.7 g/dL (31-35); MEAN CORPUSCULAR VOLUME 88.9 fL (81-99); MONOCYTES # (AUTO) 0.6 (0.2-0.8); MONOCYTES % 5.3 % (4.4-11.3); NEUTROPHILS # (AUTO) 6.8 (2.1-6.9); NEUTROPHILS % 63.3 % (38.7-80.0); PLATELET COUNT 424 x10e3/uL (140-360); RED BLOOD COUNT 2.89 x10e6/uL (3.6-5.1); RED CELL DISTRIBUTION WIDTH 12.9 % (11.7-14.4)
--- NOTE | 2019-02-04 06:54 | NUR ---
RECEIVED PATIENT RESTING IN BED. RESPIRATIONS EVEN AND UNLABORED, NO ACUTE DISTRESS NOTED. CALL LIGHT WITHIN REACH. BED IN THE LOWEST POSITION.
[2019-02-04 07:14] LABS: ALBUMIN 3.2 g/dL (3.5-5.0); ALBUMIN/GLOBULIN RATIO 1.1 (0.8-2.0); CALCIUM 8.4 mg/dL (8.4-10.2); CREATININE, SERUM 1.05 mg/dL (0.57-1.11)
[2019-02-04] MEDS: INSULIN LISPRO 100 UNIT/1 ML 3ML VIAL SQ SCH ×5 (08:02→21:00)
[2019-02-04] MEDS ORDERED: CLOPIDOGREL BISULFATE 75 MG TAB PO SCH (09:00)
[2019-02-04] MEDS ORDERED: GABAPENTIN 300 MG CAP PO SCH (09:00)
--- NOTE | 2019-02-04 10:49 | NUR ---
CM MET WITH PT REGARDING DC PLANS PT LIVES WITH HER AND GRAND CHILDREN IN A [facility] IN [place] PCP DR BERRY HUMPHREY [phone] DME: PT HAS A CANE AND GLUCOMETER INSULIN DEPENDENT DIABETIC PT GOES TO [facility] Q FRIDAY FOR WOUND CARE AND WILL CALL FOR APPT WHEN SHE GETS HOME PT SAYS DR CUELLO IS HER WHOLESALE REPRESENTATIVE CM TO FOLLOW
--- NOTE | 2019-02-04 11:20 | NUR ---
PATIENT REFUSED TO TURN AT THIS TIME.
[2019-02-04] MEDS: ASPIRIN 81 MG ENTERIC COATED PO SCH (11:36)
[2019-02-04] MEDS ORDERED: INSULIN LISPRO 100 UNIT/1 ML 3ML VIAL SQ SCH (12:00)
--- NOTE | 2019-02-04 14:04 | NUR ---
WOUND CARE CONSULTATION - INITIAL EVALUATION Patient admitted from home to ER for severe LLE pain. On admission it was discovered that patient had DARIA with poor urine output, hyperkalemia, PAD, Hyperkalemia, Ischemic pain to LLE, Type 2 DM. Patent was being seen by Liset Fay DPM at [facility] for RLE Lateral Malleolus Ulcer. 01/29/19 - S/P Stent Placement by Dr. Rocha. TCOM performed at [facility] - showed significant improvement for RLE RLE - Wound Culture done at [facility] - 02/01/19 - 1. Right Foot- Lateral Malleolus - DFU Grade 3 - Cleanse wound with NS and 4x4 gauze - Apply Mesalt Moistened with 3cc NS then cover with small Allevyn Foam Sacrum Dressing Daily. 2. Continue Moderate PUP 3. Alternating Pressure Air Mattress 4. Encourage turning and repositioning every 2 hours Addendum: 02/04/19 at 1420 by Didier Montenegro RN CONTINUED NOTE: RLE - Wound Culture done at [facility] - 02/01/19 - no growth Nausea & Vomiting on admission. LABS: WBC10.77 HGB8.4 HCT25.7 NEUT%93.3 MLN667 ALB3.2 Vascular workup pending. Renal Workup in progress Patient Visit : Patient in bed AAOX3, at bedside. Presents with annular ulceration to right foot, lateral malleolus. Area covered with island dressing with mild drainage. Periwound friable and dry. Base of wound lightly moist. with slough and fibrin approx 20%. 80 % pale pink granular tissue. No Redness noted, No edema. Wound size 1x1x0.3cm. IMPRESSION: Right Foot- Lateral Malleolus -DFU Grade 3. RECOMMENDATION: 1. Right Foot- Lateral Malleolus - DFU Grade 3 - Cleanse wound with NS and 4x4 gauze - Apply Mesalt Moistened with 3cc NS then cover with small Allevyn Foam Sacrum Dressing Daily. 2. Continue Moderate PUP 3. Alternating Pressure Air Mattress 4. Encourage turning and repositioning every 2 hours Thank you for consulting with Wound Care. Addendum: 02/04/19 at 1421 by Didier Montenegro RN Amended: Links added.
[2019-02-04 14:59] LABS: FREE T4 (FREE THYROXINE) 1.16 ng/dL (0.9-1.8); THYROID STIMULATING HORMONE 1.39 uIU/mL (0.350-4.940)
[2019-02-04] MEDS: GABAPENTIN 300 MG CAP PO SCH ×2 (15:12→20:42)
[2019-02-04] MEDS ORDERED: PROMETHAZINE 12.5MG/ NACL 0.9% 12.5 MG/50 ML BAG IV PRN (16:15)
[2019-02-04] MEDS: CEFTRIAXONE SOD 1 GM/NS 50 ML 50 ML IV SCH (16:41)
--- NOTE | 2019-02-04 19:12 | NUR ---
REPORT GIVEN TO ONCOMING NURSE, WALKING ROUNDS DONE. PATIENT IS RESTING IN BED. NO ACUTE DISTRESS NOTED. PAIN AT A TOLERABLE LEVEL AT THIS TIME. CALL LIGHT WITHIN REACH. BED IN THE LOWEST POSITION.
--- NOTE | 2019-02-04 19:29 | NUR ---
PT IS RESTING IN BED. NO RESPIRATORY DISTRESS NOTED. BED IN THE LOWEST POSITION, LOCKED, AND CALL LIGHT WITHIN REACH. WILL CONTINUE TO MONITOR.
--- NOTE | 2019-02-04 20:43 | NUR ---
RECEIVED PT IN BED AOX3 .C/O PAIN AT THE LEFT LEG .CALL LIGHT WITH IN REACH .CONTINUE TO MONITOR
--- NOTE | 2019-02-04 20:44 | NUR ---
MEDICATED THE PT WITH DILAUDID .CONTINUE TO MONITOR
[2019-02-04] MEDS: ATORVASTATIN 20 MG TAB PO SCH (21:00)
[2019-02-04] MEDS: INSULIN DEGLUDEC SC SCH (21:00)
[2019-02-04] MEDS: INSULIN GLARGINE 100 UNITS/ML VIAL SQ SCH (21:00)
[2019-02-04] MEDS ORDERED: INSULIN DEGLUDEC SC SCH (21:00)
--- NOTE | 2019-02-04 21:00 | Progress Note ---
DATE: 02/04/2019 SUBJECTIVE: The patient reports left leg pain. OBJECTIVE: VITAL SIGNS: She is afebrile. Heart rate is 85, respirations 18, blood pressure is 125/62, oxygen saturation 100% on 2 L nasal cannula. GENERAL: Well appearing, well built, no apparent distress. CARDIOVASCULAR: Regular rate and rhythm. LUNGS: Clear to auscultation. ABDOMEN: Soft, nontender, nondistended. EXTREMITIES: Decreased pulses. Trace edema. MEDICATIONS: Reviewed. LABORATORY DATA: Final laboratory data reviewed. Hemoglobin 8.4. Creatinine 1.05. IMPRESSION: 1. Peripheral arterial disease. 2. Left lower extremity pain. 3. Sepsis. 4. Acute kidney injury. RECOMMENDATIONS: Continue current cardiovascular medications. Restart Plavix. The patient likely will need intervention of the left lower extremity. However, we will need to ensure adequate improvement of her renal function. Continue sepsis treatment per primary team. We will closely follow. DO SHADIA Masterson/MODL /[id number]
--- NOTE | 2019-02-04 21:25 | Consultation ---
DATE OF CONSULTATION: 02/04/2019 Endocrine Consultation Thank you very much for referring this patient. HISTORY OF PRESENT ILLNESS: This is a 48-year-old lady, who was referred to me for evaluation of uncontrolled diabetes mellitus. The patient reportedly is a known diabetic for almost 22+ years. She takes insulin 30 units of Lantus at bedtime and 10 of Humalog with each meal depending upon the blood sugars. The patient was admitted to the hospital because of severe peripheral vascular disease and nonhealing ulcer of the right leg. During the hospital stay, the patient underwent stents and angioplasty of lower extremities. She also has history of hypertension. During the hospital stay at the time of admission, her blood sugar was 435 and anion gap was 22.9, and BUN and creatinine were 43 and 4.09. Presently, the blood sugars are in the ranges of 286-196, and anion gap is back to normal. Her last BUN and creatinine are 19 and 1.05. PHYSICAL EXAMINATION: GENERAL: Today, the patient is alert, awake, a little bit apprehensive. VITAL SIGNS: Heart rates is around 78, blood pressure 140/80 mmHg. HEENT: Essentially unremarkable. NECK: Thyroid is palpable. Clinically, she is near euthyroid. CHEST: Bilateral vesicular breathing. She has mild bronchospasm. CARDIOVASCULAR: First and second heart sounds. There is no third or fourth heart sound. EXTREMITIES: The patient has good peripheral pulses on both lower extremities. She has evidence of diabetic sensory neuropathy in both lower extremities. She has an ulcer of the lateral malleolus of the right foot. CLINICAL IMPRESSION: 1. Diabetes mellitus type 2, uncontrolled with complications. 2. Peripheral vascular disease. 3. Right foot ulcer. 4. Hypertension. 5. Chronic venous insufficiency. PLAN: At this time is to put her back on the Levemir and Humalog insulin. Monitor blood sugars closely. We will also do a hemoglobin A1c and thyroid function test. Thank you for referring this patient. I will be following this patient with you. MD GEORGIANA Manuel/LIZ /[id number] ANA
[2019-02-05] VITALS (15 sets, daily range): BP systolic 83–153; BP diastolic 50–128
[2019-02-05] MEDS: HYDROMORPHONE 2MG/ML 2 MG/ML ML IV PRN ×5 (02:55→21:40)
[2019-02-05] MEDS: SODIUM BICARBONATE 8.4% SYRING 150 ML in DEXTROSE 5% 1,000 ML IV SCH (03:30)
--- NOTE | 2019-02-05 07:16 | NUR ---
REPORT GIVEN TO THE ONCOMING NURSE
[2019-02-05] MEDS: INSULIN LISPRO 100 UNIT/1 ML 3ML VIAL SQ SCH ×3 (07:30→11:30)
[2019-02-05 07:45] LABS: ALANINE AMINOTRANSFERASE 10 IU/L (0-55); ALKALINE PHOSPHATASE 67 IU/L (40-150); ANION GAP 10.8 mmol/L (8-16); BLOOD UREA NITROGEN 7 mg/dL (7-26); BUN/CREATININE RATIO 9 (6-25); CALCIUM 8.7 mg/dL (8.4-10.2); CARBON DIOXIDE 32 mmol/L (22-29); CHLORIDE 99 mmol/L (98-107); EST GLOMERULAR FILTRATION RATE > 60 ML/MIN (60-); GLUCOSE 210 mg/dL (74-118); POTASSIUM 3.8 mmol/L (3.5-5.1); SODIUM 138 mmol/L (136-145)
[2019-02-05] MEDS: ONDANSETRON HCL INJ 2MG/ML 2ML 2 MG/ML VIAL IV PRN (07:59)
[2019-02-05] MEDS: ASPIRIN 81 MG ENTERIC COATED PO SCH (09:00)
[2019-02-05] MEDS: GABAPENTIN 300 MG CAP PO SCH ×3 (09:00→21:00)
[2019-02-05] MEDS ORDERED: LIDOCAINE HCL 2% LOCAL 20 ML VIAL ONE (09:40)
[2019-02-05] MEDS ORDERED: FENTANYL CITRATE/PF 100MCG/2 ML INJ ONE ×3 (09:40→12:22)
[2019-02-05] MEDS ORDERED: MIDAZOLAM HCL 2 MG/2 ML VIAL ONE ×6 (09:40→13:10)
[2019-02-05] MEDS ORDERED: IOPAMIDOL 300MG/ML 100 ML INFUS..BTL IV ONE (09:41)
[2019-02-05] MEDS ORDERED: SODIUM CHLORIDE 0.9% 1000ML 1,000 ML ONE ×2 (09:41→13:14)
[2019-02-05] MEDS ORDERED: HEPARIN SOD/SOD CHLORIDE 2,000 ML ONE (09:41)
--- NOTE | 2019-02-05 09:54 | NUR ---
patient off the unit for Angiogram, stable
[2019-02-05] MEDS ORDERED: INSULIN GLARGINE 100 UNITS/ML VIAL SQ SCH (10:30)
[2019-02-05] MEDS ORDERED: ALTEPLASE RECOMBINANT 2 MG/2 ML VIAL ONE (11:36)
[2019-02-05] MEDS ORDERED: SODIUM CHLORIDE 0.9% 500ML 500 ML ONE (11:36)
[2019-02-05] MEDS ORDERED: SODIUM CHLORIDE 0.9% 50ML 50 ML ONE ×2 (11:36→11:51)
[2019-02-05] MEDS ORDERED: ALTEPLASE RECOMBINANT 2 MG/2 ML VIAL IV ONE (12:00)
[2019-02-05] MEDS ORDERED: CLOPIDOGREL BISULFATE 75 MG TAB ONE (13:22)
[2019-02-05] MEDS ORDERED: ASPIRIN 325 MG TAB ONE (13:22)
--- NOTE | 2019-02-05 14:00 | NUR ---
1400pm ACT 270 re-ck in one hour 1500pm ACT 188 re-ck in one hour 1600pm ACT 178 re-ck in one hour notified neurodiagnostic technologist ready for dc sheath. Raf head nurse notified of readiness for sheath pull No gross sign of pain or pressure and dysrhythmia ooze present to cath site. ds/rn
[2019-02-05] MEDS ORDERED: ATROPINE SULFATE 0.1 MG/ML 10ML SYR ONE (16:59)
--- NOTE | 2019-02-05 17:06 | NUR ---
1706 Sheath pull inn progress by Juan C clinical laboratory technologist and RN at bedside with Atropine on judit During sheath pull HR increased to [address] Pt in extreme [address] Chandler visited pt at bedside IVp Dilaudid 2mg given and via left iv and stasis achieved with 34 min hold. Fercho patch in place and pressure dressing applied with MIcrofoam tape. Report phoned to [facility] Monitor. NSR Hr 86 122/50 Pt denies pain. Bilateral PPx4 PD/DT.Palpable. No gross signs pain,pallor,pressure or dysrhythmia. Burks remains tinge urine 3000cc removed from bag. in escort with pt. Iv continues to infuse via iv controller at 150cchr. (250cc in bag). Transported to floor with RN escort and bed and tele in place. ds/rn
[2019-02-05] MEDS ORDERED: HYDROMORPHONE 2MG/ML 2 MG/ML ML ONE (17:17)
--- NOTE | 2019-02-05 18:38 | NUR ---
Recvd patient from Nutrition Technician, AAOx3, Pressure dressing intact on rt groin, pedal pulse present, not in any distress
[2019-02-05] MEDS: ONDANSETRON HCL 4 MG ORAL DISINTEGRATING TAB PO PRN ×2 (18:46→21:40)
--- NOTE | 2019-02-05 19:00 | NUR ---
Completed bedside rounds with morning nurse. Pt alert and oriented to name. c/o 10/10 right groin pain. Pt post angiogram, verbalized understanding to keep right extremity straight until 2340. Call silva within reach. Will continue to monitor.
--- NOTE | 2019-02-05 20:23 | Operative Report ---
DATE OF PROCEDURE: 02/05/2019 SURGEON: Peter Gagnon MD INDICATIONS FOR PROCEDURE: Critical limb ischemia and rest pain, known peripheral arterial disease. PREPROCEDURE ASSESSMENT: The patient's medical history, social history, prior experience with anesthesia was reviewed prior to the procedure. The patient was deemed to be an appropriate candidate for moderate sedation. The risks, the benefits, the alternatives to the treatment and the procedure were explained to the patient prior to the procedure. Informed consent was obtained as documented in the medical records. MEDICATIONS: Please see nursing notes for medications administered during the procedure. PROCEDURES PERFORMED: 1. Catheter placement, abdominal aorta. 2. Catheter placement, third order. 3. Abdominal aortogram. 4. Bilateral lower extremity angiogram. 5. Primary thrombectomy, arterial. 6. Primary thrombectomy, additional vessel, arterial. 7. Femoral popliteal percutaneous transluminal angioplasty only. 8. Tibioperoneal percutaneous transluminal angioplasty .. 9. Tibioperoneal additional percutaneous transluminal angioplasty .. 10. Transcatheter lysis, arterial. PROCEDURE IN DETAIL: The patient was brought to the cardiac catheterization laboratory in a fasting state. Right groin was prepped and draped in a sterile fashion. Access to the right common femoral artery was obtained using modified Seldinger technique and a micropuncture equipment under ultrasound guidance. A 6-Greenlandic sheath was placed in the right common femoral artery. Abdominal aortogram was performed using 5-Greenlandic Omniflush catheter. [place] Advantage wire was used to go up and over and cross into the contralateral iliac artery. The Omniflush catheter was then advanced into the contralateral distal iliac artery. Multiple digital subtraction angiograms were taken of the left lower extremity. There was significant severe peripheral arterial disease with thrombus of the distal iliac artery, the common femoral artery, the superficial femoral artery, and all three tibioperoneal vessels with very slow one vessel distal reconstitution of the left posterior tibial artery only. We exchanged this short 6-Greenlandic sheath for a 6-Greenlandic 45 cm destination sheath over the [place] Advantage wire. We then crossed into the superficial femoral artery using 0.014-inch run-through wire. We then proceeded to perform aspiration thrombectomy of the distal iliac and left common femoral artery using multiple passes of the Pronto aspiration thrombectomy device. We then ballooned this area using a 5.0 x 100 compliant balloon. This resulted in significant improvement in flow. We then proceeded to advance the run-through wire into the superficial femoral artery through the previously placed stent into the left anterior tibial artery. The wiring was somewhat challenging below the knee. However, it went very smoothly through the stent. This was very suspicious for thrombosis of the previously placed stent, so we then proceeded to perform aspiration thrombectomy once again with a Pronto device, which showed significant thrombus aspirated with each pass. We decided to give intra-arterial tPA through Angiojet catheter. A 4 mg total of intra-arterial tPA were given and left in the left superficial femoral system for 30 minutes. We then proceeded to perform further aspiration thrombectomy and washout of the previously placed stent using the Angiojet system, total of 53 mL of thrombus and blood was aspirated. This improved the flow through the stent. However, there was very poor runoff of the tibioperoneal arteries, so we proceeded to perform balloon angioplasty first of the anterior tibial artery using 3.0 x 150 mm balloon in overlapping fashion. We then used a second wire to cross into the posterior tibial artery and proceeded to balloon the proximal portion of the posterior tibial artery using a 3.0 x 150 mm balloon at super nominal pressures followed by drug-coated balloon Lutonix 5.0 x 120 in the tibioperoneal trunk as well as the popliteal artery at nominal pressures followed by overlapping 6.0 x 150 mm Lutonix balloon in the previously placed distal SFA stent as well as another 6.0 x 150 mm Lutonix drug-coated balloon in the midportion of this superficial femoral artery proximal to the stent with about a 1 cm overlap. Finally, we used the 7.0 x 40 mm drug-coated balloon Lutonix for the distal external iliac and common femoral artery, deployed at 7 atmospheres for 3 minutes. This resulted in an excellent angiographic result with 3-vessel runoff to the foot with no residual thrombus, dissection, or spasm. We pulled back the destination sheath over the [place] Advantage wire and exchanged it for a short 6-Greenlandic sheath. Peripheral angiogram with runoff of the right lower extremity was performed through this short 6-Greenlandic sheath. Sheath was left in place to be removed with manual closure later on once ACT is less than 180. The patient tolerated the procedure well and there were no immediate complications. SIGNIFICANT FINDINGS: 1. Right iliac artery, there is a long tubular 60% stenosis of the right common iliac artery. Right common femoral artery, no significant stenosis. Right profunda, no significant stenosis. Right SFA, there is mild diffuse plaquing of the right SFA; however, there is no flow-limiting stenoses. Right popliteal, no flow-limiting stenoses. Right anterior tibial artery, there is a 70% to 80% ostial lesion of the right anterior tibial artery. Right tibioperoneal trunk, no obstructive disease. Right posterior tibial artery, no significant stenoses in the proximal portion. 2. Left common iliac artery, no significant disease. 3. Left external iliac artery distal portion has severe 90% lesion with thrombus with very limited flow distally extending into the left common femoral artery. Left profunda fills slowly via collaterals. Left superficial femoral artery, there are multiple locations of 70% to 80% lesions throughout the mid and distal left superficial femoral artery. The distal superficial femoral artery stent is completely occluded. The left popliteal artery is CLINIC DIRECTOR. Left anterior tibial artery fill very late, appears diffusely diseased. Left posterior tibial artery fills via collateral, genicular artery, reconstitutes distally. ESTIMATED BLOOD LOSS: 20 mL. COMPLICATIONS: None. GRAFTS AND IMPLANTS: None. SPECIMEN REMOVED: None. FINAL RECOMMENDATIONS: 1. Sheath removal once ACT below 180 with manual pressure closure followed by 6 hours of bedrest. 2. Continue aspirin and Plavix. We will add Xarelto given stent thrombosis. 3. Follow up in clinic two weeks post discharge. Thank you for this consult. We will continue to follow. MD KILEY Traore/LIZ /[id number]
[2019-02-05] MEDS: INSULIN DEGLUDEC SC SCH (21:00)
[2019-02-05] MEDS: ATORVASTATIN 20 MG TAB PO SCH (21:00)
[2019-02-05] MEDS: INSULIN GLARGINE 100 UNITS/ML VIAL SQ SCH (21:00)
[2019-02-05] MEDS: CEFTRIAXONE SOD 1 GM/NS 50 ML 50 ML IV SCH (21:40)
[2019-02-06] VITALS (8 sets, daily range): BP systolic 90–138; BP diastolic 52–65
[2019-02-06] MEDS: HYDROMORPHONE 2MG/ML 2 MG/ML ML IV PRN ×3 (00:30→15:00)
--- NOTE | 2019-02-06 06:30 | NUR ---
Pt lying quietly in bed with eyes closed. No acute distress noted.
[2019-02-06] MEDS: INSULIN LISPRO 100 UNIT/1 ML 3ML VIAL SQ SCH ×7 (07:30→21:00)
--- NOTE | 2019-02-06 07:30 | NUR ---
PT UP IN BED ,DENIES PAIN ,NO DISTRESS NOTED,PRESSURE DRSG TO RT GROIN CD&I.
[2019-02-06] MEDS: GABAPENTIN 300 MG CAP PO SCH ×3 (08:26→21:00)
[2019-02-06] MEDS ORDERED: CLOPIDOGREL BISULFATE 75 MG TAB PO ONE (10:00)
[2019-02-06 11:20] LABS: ALANINE AMINOTRANSFERASE 10 IU/L (0-55); ALBUMIN/GLOBULIN RATIO 0.9 (0.8-2.0); ALKALINE PHOSPHATASE 68 IU/L (40-150); ANION GAP 15.1 mmol/L (8-16); BLOOD UREA NITROGEN 7 mg/dL (7-26); BUN/CREATININE RATIO 9 (6-25); CALCIUM 8.8 mg/dL (8.4-10.2); CARBON DIOXIDE 20 mmol/L (22-29); CHLORIDE 105 mmol/L (98-107); CREATININE, SERUM 0.75 mg/dL (0.57-1.11); EST GLOMERULAR FILTRATION RATE > 60 ML/MIN (60-); GLUCOSE 197 mg/dL (74-118); POTASSIUM 4.1 mmol/L (3.5-5.1); SODIUM 136 mmol/L (136-145)
--- NOTE | 2019-02-06 12:00 | NUR ---
SPOKE WITH DR GALLEGOS RE;LABS
--- NOTE | 2019-02-06 12:14 | NUR ---
caruso cath dcd as ordered ,dtv by 2000
--- NOTE | 2019-02-06 15:43 | Progress Note ---
DATE: 02/06/2019 Cardiology Progress Note SUBJECTIVE: The patient reports tingling sensation in the left lower extremity; however, pain has improved. OBJECTIVE: VITAL SIGNS: Temperature is 98.8, heart rate is 89, respirations are 18, blood pressure is 118/62, and oxygen saturation is 100% on room air. GENERAL: Well appearing, well built, no apparent distress. CARDIOVASCULAR: Regular rate and rhythm. LUNGS: Clear to auscultation. ABDOMEN: Soft, nontender, and nondistended. EXTREMITIES: 1+ edema. There are dopplerable pulses of the left lower extremity. CARDIOVASCULAR MEDICATIONS: Reviewed. LABORATORY DATA: Reviewed. Hemoglobin 8.4. Creatinine 0.75. Telemetry monitoring revealed normal sinus rhythm. IMPRESSION: 1. Peripheral arterial disease, status post intervention. 2. Sepsis. 3. Chronic kidney disease. 4. Diabetes mellitus. RECOMMENDATIONS: The patient underwent successful intervention of the left lower extremity with excellent three-vessel runoff. We will restart Xarelto in addition to her Plavix. Continue all other current treatments per primary team. DO SHADIA Masterson/MODL /[id number]
[2019-02-06] MEDS ORDERED: SODIUM CHLORIDE 0.9% 500ML 500 ML IV SCH (16:00)
--- NOTE | 2019-02-06 16:00 | NUR ---
SPOKE WITH DR ADLER RE LOW BP,ORDERS WRITTEN
[2019-02-06] MEDS ORDERED: SODIUM CHLORIDE 0.9% 1000ML 1,000 ML ONE (16:07)
[2019-02-06] MEDS: CEFTRIAXONE SOD 1 GM/NS 50 ML 50 ML IV SCH (17:35)
[2019-02-06] MEDS: RIVAROXABAN 20 MG TABLET PO SCH (17:35)
--- NOTE | 2019-02-06 17:37 | NUR ---
PT UP IN BED RESTING NO DISTRESS NTOED,PAIN LEVEL 3
--- NOTE | 2019-02-06 18:19 | NUR ---
PT HAS NOT VOIDED ,BLADER SCANNER SHOWED 650 CC URNIE REINSERTED 16FR FOEY ,CLEAR YELLOW URINE RETURN,
--- NOTE | 2019-02-06 19:10 | NUR ---
Completed bedside rounds with morning nurse. Pt alert and orient to name. Lying in bed HOB 45 degrees. Denies pain at this time. Call silva within reach. Will continue to monitor.
[2019-02-06] MEDS: INSULIN DEGLUDEC SC SCH (21:00)
[2019-02-06] MEDS: INSULIN GLARGINE 100 UNITS/ML VIAL SQ SCH (21:00)
[2019-02-06] MEDS: ATORVASTATIN 20 MG TAB PO SCH (21:00)
--- NOTE | 2019-02-06 21:57 | Consultation ---
DATE OF CONSULTATION: 02/04/2019 REASON FOR CONSULTATION: Left lower extremity pain and peripheral arterial disease; requested by Dr. Munir Serrano. HISTORY OF PRESENT ILLNESS: I saw and evaluated this patient on February 04, 2019. She is a 48-year-old lady with severe peripheral arterial disease, who has had multiple stenting procedures to both superficial femoral arteries. She has had stent thrombosis in the past and has been on Xarelto. Recently, she had peripheral angiography and intervention on the right lower extremity with opening of a complete occlusion of the right SFA. She suddenly began to experience left lower extremity pain today and came to the emergency room. She was found to be hypotensive and tachycardiac with an elevated lactic acid. She was given intravenous fluids, started on intravenous antibiotics and responded. Her left lower extremity is still somewhat painful. Surgical evaluation has been recommended. PAST MEDICAL HISTORY: Positive for peripheral arterial disease with multiple interventions. Positive for hypertension and hyperlipidemia. FAMILY HISTORY: Negative for early coronary artery disease or sudden cardiac . SOCIAL HISTORY: Negative for smoking, alcohol, or IV drugs. MEDICATIONS: See MAR. ALLERGIES: NONE KNOWN. REVIEW OF SYSTEMS: GENERAL: Negative for fatigue or malaise. NEUROLOGIC: Negative for focal weakness of extremities or dysarthria. HEENT: Negative for decreased vision or decreased hearing. CARDIAC: Negative for chest pain or palpitations. PULMONARY: Negative for shortness of breath or wheezing. GI: No constipation or diarrhea. : Negative for hematuria or dysuria. ENDOCRINE: Negative for polyuria or polydipsia. SKIN: Negative for rashes or itching. HEMATOLOGIC: Negative for clotting or bleeding. VASCULAR: Positive for above. INFECTIOUS: Negative for fevers or sweating. PSYCHIATRIC: Negative for depression or anxiety. PHYSICAL EXAMINATION: GENERAL: Well-developed, well-nourished lady, sitting up in bed. VITAL SIGNS: Blood pressure 140/75, pulse 85 and regular, respirations 16 and unlabored. NECK: Supple and nontender. No JVD. CARDIAC: Shows a regular rate and rhythm. There is a normal S1 and S2. There is no S3, S4, rub, or murmur. LUNGS: Clear to auscultation and percussion bilaterally. ABDOMEN: Globoid, benign. Good bowel sounds. No hepatosplenomegaly. BACK: No CVA tenderness. No muscular spasm. EXTREMITIES: No cyanosis, clubbing, or edema; however, the left lower extremity is somewhat cool compared to the right. VASCULAR: Carotids 2+/2+ bilaterally. No carotid bruits. Radials and femorals 2+/2+ bilaterally. No pulses palpable distal to the left common femoral artery. SKIN: No rashes or nonhealing ulcers. MUSCULOSKELETAL: Full range of motion at all joints. No evidence of joint swelling. NEUROLOGIC: Cranial nerves II through XII intact. Sensation intact to light touch and pinprick bilaterally. Strength 5/5 in all extremities. LYMPHATICS: Negative for cervical, clavicular, or femoral adenopathy. LABORATORY DATA: White count 10.7, hemoglobin 8.4, hematocrit 25.7, and platelet count 458,000. Glucose 292. INR 1.2 with PT 17.1. IMPRESSION: Recurrent ischemia, left lower extremity. I agree with intravenous heparin. Angiogram is planned for tomorrow. Thank you very much for asking me to see this nice lady. MD VENKATA Tinajero/LIZ /[id number]
--- NOTE | 2019-02-06 21:59 | Progress Note ---
DATE: 02/06/2019 REASON FOR CONSULTATION: Peripheral arterial disease; requested by Dr. Munir Serrano. SUBJECTIVE: Tingling in the left lower extremity, but pain markedly decreased after angiogram and intervention. OBJECTIVE: VITAL SIGNS: Blood pressure 115/75, pulse 80 and regular, respirations 16 and unlabored. GENERAL: Well developed, well nourished. CARDIAC: Regular rate and rhythm. No murmur. LUNGS: Clear to auscultation and percussion bilaterally. ABDOMEN: Globoid, benign. Good bowel sounds. EXTREMITIES: 1+ edema to the knees bilaterally. Doppler pulses present in the left DP and PT. Left foot is warm and well perfused. Motor 5/5 and sensation intact to light, touch, and pinprick. MEDICATIONS: See EMR. LABORATORY DATA: Hemoglobin 8.4. Creatinine 0.75. IMPRESSION: Peripheral arterial disease, improved perfusion after angioplasty intervention. PLAN: Followup as necessary. MD VENKATA Tinajero/MODL /[id number]
[2019-02-07] VITALS (8 sets, daily range): BP systolic 105–137; BP diastolic 50–66
[2019-02-07 05:58] LABS: BASOPHILS # (AUTO) 0.1 (0.0-0.1); BASOPHILS % 0.5 % (0.0-1.0); EOSINOPHILS # (AUTO) 0.4 (0.0-0.4); EOSINOPHILS % 3.8 % (0.0-6.0); HEMOGLOBIN 7.5 g/dL (12.0-16.0); LYMPHOCYTES # (AUTO) 2.2 (1.0-3.2); LYMPHOCYTES % 21.3 % (18.0-39.1); MEAN CORPUSCULAR HEMOGLOBIN 29.4 pg (28-32); MEAN CORPUSCULAR HGB CONC 33.5 g/dL (31-35); MEAN CORPUSCULAR VOLUME 87.8 fL (81-99); MONOCYTES # (AUTO) 0.5 (0.2-0.8); MONOCYTES % 5.1 % (4.4-11.3); NEUTROPHILS % 68.9 % (38.7-80.0); PLATELET COUNT 390 x10e3/uL (140-360); RED BLOOD COUNT 2.55 x10e6/uL (3.6-5.1)
[2019-02-07 06:14] LABS: ANION GAP 11.8 mmol/L (8-16); BLOOD UREA NITROGEN 9 mg/dL (7-26); BUN/CREATININE RATIO 13 (6-25); CARBON DIOXIDE 25 mmol/L (22-29); CHLORIDE 108 mmol/L (98-107); CREATININE, SERUM 0.71 mg/dL (0.57-1.11); EST GLOMERULAR FILTRATION RATE > 60 ML/MIN (60-); GLUCOSE 150 mg/dL (74-118); POTASSIUM 3.8 mmol/L (3.5-5.1); SODIUM 141 mmol/L (136-145)
[2019-02-07 06:32] LABS: HEMATOCRIT 22.4 % (34.2-44.1)
--- NOTE | 2019-02-07 06:37 | NUR ---
Left voice message Dr. Serrano regarding lab results for Hgb 7.5, Hct 22.4. Pt denies fatigue. Pt skin color WDL. No tachycardia or bleeding noted. Will continue to monitor.
--- NOTE | 2019-02-07 07:00 | NUR ---
Pt lying quietly in bed. No distress noted. Report given to morning nurse.
[2019-02-07] MEDS: INSULIN LISPRO 100 UNIT/1 ML 3ML VIAL SQ SCH ×7 (07:30→21:00)
[2019-02-07] MEDS: CLOPIDOGREL BISULFATE 75 MG TAB PO SCH (08:16)
[2019-02-07] MEDS: GABAPENTIN 300 MG CAP PO SCH ×3 (08:16→21:00)
[2019-02-07] MEDS ORDERED: ACETAMINOPHEN 325 MG TAB PO STA (09:40)
--- NOTE | 2019-02-07 09:44 | NUR ---
DR ADLER HERE ORDERS WRITTEN
[2019-02-07] MEDS ORDERED: FUROSEMIDE INJ 10 MG/ML 2 ML VIAL IV SCH (09:45)
[2019-02-07] MEDS ORDERED: DIPHENHYDRAMINE HCL INJ 50 MG/ML VIAL IV ONE (09:45)
[2019-02-07] MEDS ORDERED: SODIUM CHLORIDE 0.9% 250ML 250 ML IV ONE (10:30)
--- NOTE | 2019-02-07 10:54 | Diagnostic Imaging Report ---
CT Abdomen and Pelvis without contrast INDICATION: Acute blood loss, anemia, abdominal pain TECHNIQUE: Thin collimation axial images obtained from the diaphragm to the level of the pubic symphysis without nonionic intravenous contrast. Dose reduction techniques used: Automated exposure control, adjustment of the mAs and/or kVp according to patient size, standardized low-dose protocol, and/or iterative reconstruction technique. RADIATION DOSE: Total DLP: 370.1 mGy*cm Estimated effective dose: (DLP x 0.015 x size factor) mSv CTDIvol has been reviewed. It is below the limits set by the Radiation Protocol Committee (RPC). COMPARISON: CT abdomen/pelvis 10/22/2014, renal ultrasound 02/03/2019. ABDOMEN FINDINGS: Lung Bases: Clear. The heart is normal in size. The chambers of the heart are visible consistent with history of anemia. Small hiatal hernia. Liver: Normal in attenuation without mass. Gallbladder: Present and contains dependently layering sludge or small gallstones. No gallbladder wall thickening. No ductal dilatation. Pancreas: Normal attenuation without mass. Spleen: Normal size without mass. Adrenal Glands: No evidence for mass. Kidneys: Right: No renal calculus. No cortical mass or hydronephrosis Left: No renal calculus. No cortical mass or hydronephrosis Lymph Nodes: No enlarged abdominal or retroperitoneal lymph nodes.. Aorta: Normal in diameter. PELVIS FINDINGS: Bowel: Stomach: Normal in caliber with normal wall thickness. Small Bowel: Normal in caliber with normal wall thickness. Large Bowel: Moderate burden of stool throughout the colon. No mural thickening or pericolonic inflammation. Appendix: Not visualized and may be absent or collapsed. Bladder: Collapsed around a Burks catheter. There is a prominent urachal ligament. Ureters: No ureteral dilatation. The uterus is absent. There are no adnexal masses. Peritoneum/retroperitoneum: No free fluid or fluid collection.. Bones: No focal osseous lesions. Soft tissues: Symmetric in size and morphology. Small bowel containing umbilical hernia has repaired. No hernia recurrence. IMPRESSION: 1. No splenomegaly, retroperitoneal hemorrhage, or other abnormality to explain blood loss.. 2. Small hiatal hernia. Repair of bowel containing umbilical hernia. Signed by: Dr. Belkis Perry MD on 02/07/2019 10:51 AM
--- NOTE | 2019-02-07 13:00 | NUR ---
FIRST UNIT BLOOD STARTED,PRE MEDICATION GIVEN,VS-102/59,91,98.7,WILL CONTINUE TO MONITOR.
--- NOTE | 2019-02-07 15:15 | NUR ---
BLOOD FINISHED PT TEMP 99.5,,WILL WAIT FOR TEMP TO GO DOWN BEFORE STARTING NEXT UNIT,
[2019-02-07] MEDS: HYDROMORPHONE 2MG/ML 2 MG/ML ML IV PRN ×2 (15:35→18:35)
--- NOTE | 2019-02-07 16:18 | Progress Note ---
DATE: 02/07/2019 Cardiology Progress Note SUBJECTIVE: The patient feels a "tingling" sensation in the toes. No further pain. Getting blood products currently. OBJECTIVE: VITAL SIGNS: Temperature is 98.4, heart rate is 83, respirations are 18, oxygen saturation is 99% on room air, and blood pressure is 105/59. GENERAL: Well appearing, well built, in no apparent distress. CARDIOVASCULAR: Regular rate and rhythm. LUNGS: Clear to auscultation. ABDOMEN: Soft, nontender, nondistended. EXTREMITIES: Doppler pulses with edema. SKIN: Warm. TELEMETRY: Monitoring reveals normal sinus rhythm. IMPRESSION: 1. Peripheral arterial disease status post intervention. 2. Sepsis. 3. Chronic kidney disease. 4. Diabetes mellitus. 5. Anemia. RECOMMENDATIONS: She underwent successful intervention of the left lower extremity with excellent three-vessel runoff. Her Xarelto was restarted in addition to her Plavix. She is getting blood products for her acute anemia. Continue all other treatments of her diabetes mellitus and infectious medical problems per primary team. DO SHADIA Masterson/MODL /[id number]
[2019-02-07] MEDS: RIVAROXABAN 20 MG TABLET PO SCH (16:40)
[2019-02-07] MEDS: CEFTRIAXONE SOD 1 GM/NS 50 ML 50 ML IV SCH (16:40)
--- NOTE | 2019-02-07 17:28 | NUR ---
PT UP IN BED ,DENIES PAIN NO DISTRESS NTOED.
[2019-02-07] MEDS ORDERED: ACETAMINOPHEN 325 MG TAB PO PRN (19:00)
[2019-02-07] MEDS ORDERED: SODIUM CHLORIDE 0.9% 250ML 250 ML ONE (20:26)
[2019-02-07] MEDS: INSULIN GLARGINE 100 UNITS/ML VIAL SQ SCH (21:00)
[2019-02-07] MEDS: INSULIN DEGLUDEC SC SCH (21:00)
[2019-02-07] MEDS: ATORVASTATIN 20 MG TAB PO SCH (21:00)
--- NOTE | 2019-02-07 21:40 | NUR ---
Monitored 15 mins. after initiation of blood transfusion. Pt without transfusion reaction. VS T98.2, BP139/64, HR76, R18. No acute distress noted. Will continue to monitor.
[2019-02-08] VITALS (8 sets, daily range): BP systolic 102–148; BP diastolic 55–69
[2019-02-08] MEDS: HYDROMORPHONE 2MG/ML 2 MG/ML ML IV PRN ×5 (00:20→21:28)
[2019-02-08 06:15] LABS: BASOPHILS # (AUTO) 0.1 (0.0-0.1); BASOPHILS % 0.9 % (0.0-1.0); EOSINOPHILS # (AUTO) 0.5 (0.0-0.4); EOSINOPHILS % 4.7 % (0.0-6.0); HEMATOCRIT 32.2 % (34.2-44.1); HEMOGLOBIN 10.3 g/dL (12.0-16.0); LYMPHOCYTES # (AUTO) 3.1 (1.0-3.2); LYMPHOCYTES % 27.5 % (18.0-39.1); MEAN CORPUSCULAR HEMOGLOBIN 28.4 pg (28-32); MEAN CORPUSCULAR VOLUME 88.7 fL (81-99); MONOCYTES # (AUTO) 0.7 (0.2-0.8); NEUTROPHILS # (AUTO) 6.9 (2.1-6.9); NEUTROPHILS % 60.5 % (38.7-80.0); PLATELET COUNT 394 x10e3/uL (140-360); RED BLOOD COUNT 3.63 x10e6/uL (3.6-5.1); RED CELL DISTRIBUTION WIDTH 13.9 % (11.7-14.4)
[2019-02-08] MEDS: ONDANSETRON HCL 4 MG ORAL DISINTEGRATING TAB PO PRN ×3 (06:20→17:42)
--- NOTE | 2019-02-08 06:20 | NUR ---
Pt vomited 60 ml green-yellowish tinged fluid. Admin prn Zofran sublingual tab. lungs CTA. abdomen soft and nontender. x4 bowel sounds. Call silva within reach.
--- NOTE | 2019-02-08 06:40 | NUR ---
rounded with night worker nurse, patient aware of change and in no distress. call silva within reach and bed in lowest position.
[2019-02-08 06:41] LABS: ANION GAP 12.6 mmol/L (8-16); BLOOD UREA NITROGEN 12 mg/dL (7-26); BUN/CREATININE RATIO 16 (6-25); CALCIUM 9.1 mg/dL (8.4-10.2); CARBON DIOXIDE 26 mmol/L (22-29); CHLORIDE 106 mmol/L (98-107); CREATININE, SERUM 0.75 mg/dL (0.57-1.11); EST GLOMERULAR FILTRATION RATE > 60 ML/MIN (60-); GLUCOSE 105 mg/dL (74-118); POTASSIUM 3.6 mmol/L (3.5-5.1); SODIUM 141 mmol/L (136-145)
[2019-02-08] MEDS: INSULIN LISPRO 100 UNIT/1 ML 3ML VIAL SQ SCH ×7 (07:30→21:00)
[2019-02-08] MEDS: CLOPIDOGREL BISULFATE 75 MG TAB PO SCH (09:10)
[2019-02-08] MEDS: GABAPENTIN 300 MG CAP PO SCH ×3 (09:10→21:19)
--- NOTE | 2019-02-08 12:29 | NUR ---
Nutrition Screen Note RD Recommendation for Physician: - Continue current diet - Diet education provided 02/08 Plan of Care: RD following, monitoring for tolerance and adequacy Nutrition reason for involvement: LOS Primary Diagnose(s): PAD, DARIA, ischemic pain, non healing ulcer of L leg PMH: DM, PVD, HTN, CAD, L leg ulcer Ht: 64 in Wt: 163 lb BMI: 28 kg/m2 IBW: [address] Assessment: (02/08) 48 YOF admitted for PAD and L lower leg ulcer. Pt seen today for early LOS. Pt discussed during am rounds. Pt reports drinking 1 meal per day and 1 Glucerna shake per day, states she's not a big eater and this is how she consistently eats. Pt reports nasuea at times, denies additional GI distress. Pt denies wt loss. Pt declined DM diet education materials, but was willing to discuss meal planning and DM appropriate snacks. Pt requested low purine diet education materials due to hx of gout. All questions answered at time of visit. Chart reviewed. Labs and meds reviewed, noted A1C of 10.9 at admit. Will monitor and continue to follow. Current Diet: 1800 ADA Malnutrition Evaluation (02/08/19) The patient does not meet criteria for a specified degree of malnutrition at this time. Will re-evaluate at follow-up as appropriate. Diet Education Needs Assessment: Diet education indicated, pt receptive 02/08. Learner(s): pt Barriers: none Cultural/Language Modifications: none Readiness: ready Method: handouts, discussion Topics: Diabetic meal planning, low purine diet restriction Understanding/Compliance: good Nutrition Care Level: Low Signed: Taryn Reveles RD, LD, [facility]
--- NOTE | 2019-02-08 13:12 | Progress Note ---
DATE: 02/08/2019 Cardiology Progress Note SUBJECTIVE: No major events overnight. OBJECTIVE: VITAL SIGNS: Temperature afebrile, pulse 79, respiratory rate 18, blood pressure 128/61, and saturating 100% on room air. GENERAL: female, in no acute distress. CARDIOVASCULAR: Regular rate and rhythm. No murmurs, rubs, or gallops. LUNGS: Clear to auscultation bilaterally. ABDOMEN: Soft, nontender, and nondistended. EXTREMITIES: Trace edema in bilateral lower extremities with left lower extremity is now warm and well perfused. Dopplerable pulses. INPATIENT MEDICATIONS: Reviewed. TELEMETRY DATA: Reviewed. ASSESSMENT AND PLAN: 1. Critical limb ischemia of left lower extremity with rest pain, now status post intervention. 2. Severe bilateral peripheral arterial disease. 3. Sepsis. 4. Chronic kidney disease. 5. Diabetes. 6. Anemia. RECOMMENDATIONS: Status post peripheral intervention of the left lower extremity with good three vessel runoff at the end of the procedure. Continue aspirin, Plavix, and Xarelto. Risk factor management including diabetes management per primary team. Thank you for this consult. We will continue to monitor. MD KILEY Traore/LIZ /[id number]
[2019-02-08] MEDS: RIVAROXABAN 20 MG TABLET PO SCH (17:00)
[2019-02-08] MEDS: CEFTRIAXONE SOD 1 GM/NS 50 ML 50 ML IV SCH (17:00)
--- NOTE | 2019-02-08 19:15 | NUR ---
rounded with material handler 2nd shift nurse, patient aware of change and in no distress. call silva within reach and bed in lowest position
--- NOTE | 2019-02-08 19:47 | NUR ---
RECEIVED PT IN BED AOX3 .C/O SLIGHT PAIN .NO ACUTE DISTRESS NOTED .CALL LIGHT WITH IN REACH .
[2019-02-08] MEDS: INSULIN DEGLUDEC SC SCH (21:00)
--- NOTE | 2019-02-08 21:05 | NUR ---
REPORT GIVEN TO THE ANOTHER NURSE FOR THE CONTINUING CARE
[2019-02-08] MEDS: ATORVASTATIN 20 MG TAB PO SCH (21:19)
[2019-02-08] MEDS: INSULIN GLARGINE 100 UNITS/ML VIAL SQ SCH (21:21)
[2019-02-09] VITALS: BP 131/60
[2019-02-09 06:19] LABS: BASOPHILS # (AUTO) 0.1 (0.0-0.1); EOSINOPHILS # (AUTO) 0.5 (0.0-0.4); EOSINOPHILS % 4.7 % (0.0-6.0); HEMATOCRIT 32.3 % (34.2-44.1); HEMOGLOBIN 10.3 g/dL (12.0-16.0); LYMPHOCYTES % 19.1 % (18.0-39.1); MEAN CORPUSCULAR HEMOGLOBIN 28.8 pg (28-32); MEAN CORPUSCULAR HGB CONC 31.9 g/dL (31-35); MEAN CORPUSCULAR VOLUME 90.2 fL (81-99); MONOCYTES # (AUTO) 0.6 (0.2-0.8); MONOCYTES % 6.1 % (4.4-11.3); NEUTROPHILS # (AUTO) 7.1 (2.1-6.9); NEUTROPHILS % 68.7 % (38.7-80.0); PLATELET COUNT 378 x10e3/uL (140-360); RED BLOOD COUNT 3.58 x10e6/uL (3.6-5.1); RED CELL DISTRIBUTION WIDTH 13.9 % (11.7-14.4)
[2019-02-09] MEDS: HYDROMORPHONE 2MG/ML 2 MG/ML ML IV PRN ×2 (06:46→09:59)
--- NOTE | 2019-02-09 07:10 | NUR ---
PATIENT IS AWAKE AND IN STABLE CONDITION WITH NO S/S OF RESPIRATORY DISTRESS. NO PAIN VOICED. DRESSING AND ALLEVYN PAD APPLIED TO RIGHT LATERAL ANKLE WOUND. TELEMETRY APPLIED. CALL LIGHT IS WITHIN REACH, PATIENT INSTRUCTED TO CALL FOR ASSISTANCE NEEDED.
[2019-02-09] MEDS: INSULIN LISPRO 100 UNIT/1 ML 3ML VIAL SQ SCH ×4 (07:30→12:21)
[2019-02-09 07:54] VITALS: BP 112/59
[2019-02-09] MEDS: CLOPIDOGREL BISULFATE 75 MG TAB PO SCH (08:45)
[2019-02-09] MEDS: GABAPENTIN 300 MG CAP PO SCH ×2 (08:45→14:00)
[2019-02-09 09:41] VITALS: BP 112/59
--- NOTE | 2019-02-09 10:39 | NUR ---
CALL PLACED OUT TO DR. PABON FOR DC CLEARANCE- AWAITING CALLBACK.
[2019-02-09] MEDS ORDERED: XARELTO20 MG PO (11:14)
[2019-02-09 11:51] VITALS: BP 110/59
--- NOTE | 2019-02-09 12:59 | NUR ---
PROVIDED WALKER PER DME ORDER, GOT SIGNATURE FROM PT AND PUT ON CHART TO GET MD SIGNATURE, WILL FILE IN PACU WHEN OBTAIN.
--- NOTE | 2019-02-09 13:13 | NUR ---
CALL PLACED OUT TO DR. PABON REGARDING DISCHARGE CLEARANCE- AWAITING CALLBACK.
--- NOTE | 2019-02-09 13:38 | NUR ---
RECEIVED CALL BACK FROM DR. SCHMID REGARDING PATIENT CLEARANCE- CLEARANCE RECEIVED.
[2019-02-09] MEDS ORDERED: LANTUS 3ML100 UNITS/ SC (14:21)
--- NOTE | 2019-02-09 15:44 | NUR ---
PATIENT DISCHARGE HOME- PATIENT OFF THE UNIT 1532 PER WHEELCHAIR ACCOMPANIED BY RN TO THE FRONT LOBBY. PATIENT IS IN STABLE CONDITION WITH NO S/S OF RESPIRATORY DISTRESS. NO PAIN VOICED. IV REMOVED WITH TIP INTACT AT 1526. DISCHARGE TEACHING, INSTRUCTIONS, AND MEDICATION GIVEN TO THE PATIENT. ALL PERSONAL ITEMS TAKEN WITH THE PATIENT AND HER .
--- NOTE | 2019-02-10 06:06 | Discharge Summary ---
PCP: Ceferino Gray MD. CONSULTANTS: 1. Dr. Svitlana Brown. 2. Dr. Keenan Chandler. FINAL DIAGNOSES: 1. Critical limb ischemia and rest pain, known peripheral arterial disease, status post angiogram with angioplasty and stent placement to the left lower extremity. 2. Status post 2 units of blood transfusion due to blunt anemia. 3. Baseline multiple chronic medical problems. SUMMARY: A 48-year-old female with left lower extremity acute ischemia. The patient had significant finding on angiogram done on February 05, 2019. She had a right iliac artery tubular 60% stenosis. Right common femoral artery, no significant stenosis. Right profunda, no significant stenosis. Right SFA, mild diffuse plaque. Right popliteal, no flow-limiting stenosis. Right anterior tibial artery, 70% to 80% ostial lesion of the right anterior tibial artery. Left common iliac artery, no stenosis. Left external iliac artery portion, severe 90% lesion with thrombus with very limited flow distally extending into the left common femoral artery. Left superficial femoral artery multiple location of 70% to 80% lesion. Left popliteal artery is COMPENSATION SUPERVISOR. Left anterior artery fill very late, appears diffusely diseased. The patient is otherwise stable. Postprocedure, the patient has blunt anemia. There was no sign of acute blood loss, although she was anemic, therefore 2 units of blood transfusion was done. The patient is also with urinary retention with acute kidney injury, but now resolved. The patient is stable to discharge home. Resume home medication. We will give the patient Xarelto 20 mg once a day in addition to what she has already taken. MD YISSEL Hope/ANTONINOL /[id number]
== END 2019-02-09 15:32 | disposition home or self-care (01) | DRG 853 ==
LOC: ER 07:02 → ERHOLD 12:00 → MED/SURG3 12:41
PROVIDERS: ADMIT Internal Medicine; ATTEND Internal Medicine
PROC: 04CL3ZZ Extirpation of Matter from Left Femoral Artery, Percutaneous Approach (ICD-10-PCS; 2019-02-05)
PROC: 3E05317 Introduction of Other Thrombolytic into Peripheral Artery, Percutaneous Approach (ICD-10-PCS; 2019-02-05)
PROC: 047Q3Z1 Dilation of Left Anterior Tibial Artery using Drug-Coated Balloon, Percutaneous Approach (ICD-10-PCS; 2019-02-05)
PROC: 047S3Z1 Dilation of Left Posterior Tibial Artery using Drug-Coated Balloon, Percutaneous Approach (ICD-10-PCS; 2019-02-05)
PROC: B41D1ZZ Fluoroscopy of Aorta and Bilateral Lower Extremity Arteries using Low Osmolar Contrast (ICD-10-PCS; 2019-02-05)
PROC: 30233N1 Transfusion of Nonautologous Red Blood Cells into Peripheral Vein, Percutaneous Approach (ICD-10-PCS; principal; 2019-02-07)
DX: A41.9 Sepsis, unspecified organism (principal); N17.0 Acute kidney failure with tubular necrosis; E87.2 Acidosis; L97.819 Non-pressure chronic ulcer of other part of right lower leg with unspecified severity; E11.51 Type 2 diabetes mellitus with diabetic peripheral angiopathy without gangrene; E11.65 Type 2 diabetes mellitus with hyperglycemia; I70.212 Atherosclerosis of native arteries of extremities with intermittent claudication, left leg; I70.221 Atherosclerosis of native arteries of extremities with rest pain, right leg; Z79.01 Long term (current) use of anticoagulants; E78.5 Hyperlipidemia, unspecified; I25.10 Atherosclerotic heart disease of native coronary artery without angina pectoris; Z95.820 Peripheral vascular angioplasty status with implants and grafts; R33.9 Retention of urine, unspecified; E11.319 Type 2 diabetes mellitus with unspecified diabetic retinopathy without macular edema; E11.42 Type 2 diabetes mellitus with diabetic polyneuropathy; Z79.4 Long term (current) use of insulin; E87.5 Hyperkalemia; Z86.718 Personal history of other venous thrombosis and embolism; R65.20 Severe sepsis without septic shock; D64.9 Anemia, unspecified; E11.22 Type 2 diabetes mellitus with diabetic chronic kidney disease; I12.9 Hypertensive chronic kidney disease with stage 1 through stage 4 chronic kidney disease, or unspecified chronic kidney disease; N18.9 Chronic kidney disease, unspecified
CPT/HCPCS: 36247; 36415; 37186; 37211; 37213; 37220; 37228; 37232; 51700; 74176; 75625; 75710; 75716; 76770; 80048; 80053; 81001; 82550; 82553; 82570; 82948; 83036; 83605; 84156; 84439; 84443; 84484; 85025; 85610; 85730; 86850; 86900; 86920; 87040; 87086; 93005; 93925; 99284; C1725; C1769; C1887; C2623; J0696; J1200; J1815; J1940; J2001; J2250; J2405; J2550; J2997; J3370; J7030; J7040; J7050; J7070; P9016; Q9967

== ENCOUNTER 2019-02-10 21:13 | Emergency (ER) | payer OTHER ==
[~2019-02-10] VITALS: Ht 162.6 cm; Wt 73.9 kg
[~2019-02-10 21:13] MED LIST changes: +LANTUS 3ML100 UNITS/ SC; +XARELTO20 MG PO
[2019-02-10 22:50] VITALS: BP 107/61
== END 2019-02-10 23:00 | disposition home or self-care (01) ==
LOC: ER 21:13
DX: L22 Diaper dermatitis (principal); E11.9 Type 2 diabetes mellitus without complications; I73.9 Peripheral vascular disease, unspecified; I25.10 Atherosclerotic heart disease of native coronary artery without angina pectoris; F41.9 Anxiety disorder, unspecified; K21.9 Gastro-esophageal reflux disease without esophagitis; E78.5 Hyperlipidemia, unspecified; Z87.891 Personal history of nicotine dependence
CPT/HCPCS: 99282

== ENCOUNTER → 2019-02-15 | Outpatient (CLI) | payer OTHER ==
[~2019-02-15] MED LIST changes: +LIDOCAINE/PRILOCAINE 2.5-2.5% KIT ONE
== END ==
LOC: WCC 15:09
PROVIDERS: ATTEND Podiatrist Foot & Ankle Surgery
DX: E11.621 Type 2 diabetes mellitus with foot ulcer (principal); E11.51 Type 2 diabetes mellitus with diabetic peripheral angiopathy without gangrene; L97.411 Non-pressure chronic ulcer of right heel and midfoot limited to breakdown of skin; G90.09 Other idiopathic peripheral autonomic neuropathy; I70.203 Unspecified atherosclerosis of native arteries of extremities, bilateral legs; E78.00 Pure hypercholesterolemia, unspecified; I95.89 Other hypotension; N32.89 Other specified disorders of bladder; Z79.4 Long term (current) use of insulin; Z01.810 Encounter for preprocedural cardiovascular examination; Z01.811 Encounter for preprocedural respiratory examination; F17.210 Nicotine dependence, cigarettes, uncomplicated

== ENCOUNTER → 2019-02-23 | Outpatient (CLI) | payer OTHER ==
[~2019-02-23] MED LIST changes: -LIDOCAINE/PRILOCAINE 2.5-2.5% KIT ONE
== END ==
LOC: WCC 12:23
PROVIDERS: ATTEND Podiatrist Foot & Ankle Surgery
DX: E11.621 Type 2 diabetes mellitus with foot ulcer (principal); E11.51 Type 2 diabetes mellitus with diabetic peripheral angiopathy without gangrene; L97.411 Non-pressure chronic ulcer of right heel and midfoot limited to breakdown of skin; I70.203 Unspecified atherosclerosis of native arteries of extremities, bilateral legs; E78.00 Pure hypercholesterolemia, unspecified; G90.09 Other idiopathic peripheral autonomic neuropathy; I95.89 Other hypotension; N32.89 Other specified disorders of bladder; Z01.810 Encounter for preprocedural cardiovascular examination; Z01.811 Encounter for preprocedural respiratory examination; Z79.4 Long term (current) use of insulin; F17.210 Nicotine dependence, cigarettes, uncomplicated

== ENCOUNTER → 2019-03-01 | Outpatient (CLI) | payer OTHER ==
[~2019-03-01] MED LIST changes: +COLLAGENASE OINTMENT 30 GM TUBE ONE; +LIDOCAINE/PRILOCAINE 2.5-2.5% KIT ONE
[2019-03-08 16:53] LABS: BASOPHILS # (AUTO) 0.1 (0.0-0.1); EOSINOPHILS # (AUTO) 0.2 (0.0-0.4); HEMATOCRIT 26.2 % (34.2-44.1); HEMOGLOBIN 8.4 g/dL (12.0-16.0); LYMPHOCYTES % 42.9 % (18.0-39.1); MEAN CORPUSCULAR HEMOGLOBIN 30.1 pg (28-32); MEAN CORPUSCULAR HGB CONC 32.1 g/dL (31-35); MEAN CORPUSCULAR VOLUME 93.9 fL (81-99); MONOCYTES # (AUTO) 0.5 (0.2-0.8); MONOCYTES % 6.6 % (4.4-11.3); NEUTROPHILS # (AUTO) 3.2 (2.1-6.9); NEUTROPHILS % 46.2 % (38.7-80.0); PLATELET COUNT 531 x10e3/uL (140-360); RED BLOOD COUNT 2.79 x10e6/uL (3.6-5.1); RED CELL DISTRIBUTION WIDTH 15.2 % (11.7-14.4)
[2019-03-08 17:12] LABS: ALBUMIN/GLOBULIN RATIO 1.1 (0.8-2.0); ANION GAP 15.3 mmol/L (8-16); CALCIUM 9.8 mg/dL (8.4-10.2); CREATININE, SERUM 1.23 mg/dL (0.57-1.11)
[2019-03-08 17:17] LABS: POTASSIUM 5.3 mmol/L (3.5-5.1)
[2019-03-08 17:28] LABS: ERYTHROCYTE SEDIMENTATION RATE 70 mm/hr (0-20)
== END ==
LOC: WCC 14:42
PROVIDERS: ATTEND Podiatrist Foot & Ankle Surgery
DX: E11.621 Type 2 diabetes mellitus with foot ulcer (principal); E11.51 Type 2 diabetes mellitus with diabetic peripheral angiopathy without gangrene; L97.411 Non-pressure chronic ulcer of right heel and midfoot limited to breakdown of skin; G90.09 Other idiopathic peripheral autonomic neuropathy; I70.203 Unspecified atherosclerosis of native arteries of extremities, bilateral legs; N32.89 Other specified disorders of bladder; I95.89 Other hypotension; E78.00 Pure hypercholesterolemia, unspecified; F17.210 Nicotine dependence, cigarettes, uncomplicated
CPT/HCPCS: 36415; 80053; 83036; 84134; 85025; 85651

== ENCOUNTER → 2019-03-15 | Outpatient (CLI) | payer OTHER ==
[~2019-03-15] MED LIST changes: -COLLAGENASE OINTMENT 30 GM TUBE ONE; -LIDOCAINE/PRILOCAINE 2.5-2.5% KIT ONE
== END ==
LOC: WCC 10:00
PROVIDERS: ATTEND Podiatrist Foot & Ankle Surgery
DX: E11.621 Type 2 diabetes mellitus with foot ulcer (principal); E11.51 Type 2 diabetes mellitus with diabetic peripheral angiopathy without gangrene; L97.411 Non-pressure chronic ulcer of right heel and midfoot limited to breakdown of skin; I70.203 Unspecified atherosclerosis of native arteries of extremities, bilateral legs; G90.09 Other idiopathic peripheral autonomic neuropathy; E78.00 Pure hypercholesterolemia, unspecified; I95.89 Other hypotension; N32.89 Other specified disorders of bladder; Z01.810 Encounter for preprocedural cardiovascular examination; Z01.811 Encounter for preprocedural respiratory examination; Z79.4 Long term (current) use of insulin; F17.210 Nicotine dependence, cigarettes, uncomplicated
CPT/HCPCS: 15271; Q4186

== ENCOUNTER → 2019-03-22 | Outpatient (CLI) | payer OTHER | LOC: WCC 15:15 | PROVIDERS: ATTEND Podiatrist Foot & Ankle Surgery | DX: E11.621 Type 2 diabetes mellitus with foot ulcer (principal); E11.51 Type 2 diabetes mellitus with diabetic peripheral angiopathy without gangrene; L97.411 Non-pressure chronic ulcer of right heel and midfoot limited to breakdown of skin; E78.00 Pure hypercholesterolemia, unspecified; F17.210 Nicotine dependence, cigarettes, uncomplicated; G90.09 Other idiopathic peripheral autonomic neuropathy; I70.203 Unspecified atherosclerosis of native arteries of extremities, bilateral legs; I95.89 Other hypotension; N32.89 Other specified disorders of bladder; Z01.810 Encounter for preprocedural cardiovascular examination; Z01.811 Encounter for preprocedural respiratory examination; Z79.4 Long term (current) use of insulin ==

== ENCOUNTER → 2019-04-05 | Outpatient (CLI) | payer OTHER ==
[~2019-04-05] MED LIST changes: +HUMULIN N100 UNITS/ SC; +TRIAMTERENE-HCTZ1 EA PO
== END ==
LOC: WCC 09:00
PROVIDERS: ATTEND Podiatrist Foot & Ankle Surgery
DX: E11.621 Type 2 diabetes mellitus with foot ulcer (principal); E11.51 Type 2 diabetes mellitus with diabetic peripheral angiopathy without gangrene; L97.411 Non-pressure chronic ulcer of right heel and midfoot limited to breakdown of skin; E78.00 Pure hypercholesterolemia, unspecified; F17.210 Nicotine dependence, cigarettes, uncomplicated; G90.09 Other idiopathic peripheral autonomic neuropathy; I70.203 Unspecified atherosclerosis of native arteries of extremities, bilateral legs; I95.89 Other hypotension; N32.89 Other specified disorders of bladder; Z01.810 Encounter for preprocedural cardiovascular examination; Z01.811 Encounter for preprocedural respiratory examination; Z79.4 Long term (current) use of insulin

== ENCOUNTER → 2019-04-19 | Outpatient (CLI) | payer OTHER | LOC: WCC 13:23 | PROVIDERS: ATTEND Podiatrist Foot & Ankle Surgery | DX: E11.621 Type 2 diabetes mellitus with foot ulcer (principal); E11.51 Type 2 diabetes mellitus with diabetic peripheral angiopathy without gangrene; L97.411 Non-pressure chronic ulcer of right heel and midfoot limited to breakdown of skin; I70.203 Unspecified atherosclerosis of native arteries of extremities, bilateral legs; G90.09 Other idiopathic peripheral autonomic neuropathy; I95.89 Other hypotension; E78.00 Pure hypercholesterolemia, unspecified; N32.89 Other specified disorders of bladder; Z01.810 Encounter for preprocedural cardiovascular examination; Z01.811 Encounter for preprocedural respiratory examination; Z79.4 Long term (current) use of insulin; F17.210 Nicotine dependence, cigarettes, uncomplicated ==

== ENCOUNTER → 2019-05-03 | Day surgery (SDC) | payer OTHER ==
[2019-04-30 10:43] LABS: BASOPHILS # (AUTO) 0.1 (0.0-0.1); BASOPHILS % 1.4 % (0.0-1.0); EOSINOPHILS # (AUTO) 0.3 (0.0-0.4); EOSINOPHILS % 3.8 % (0.0-6.0); HEMATOCRIT 29.1 % (34.2-44.1); HEMOGLOBIN 9.5 g/dL (12.0-16.0); LYMPHOCYTES # (AUTO) 3.8 (1.0-3.2); LYMPHOCYTES % 44.7 % (18.0-39.1); MEAN CORPUSCULAR HEMOGLOBIN 27.1 pg (28-32); MEAN CORPUSCULAR HGB CONC 32.6 g/dL (31-35); MEAN CORPUSCULAR VOLUME 83.1 fL (81-99); MONOCYTES # (AUTO) 0.5 (0.2-0.8); MONOCYTES % 6.3 % (4.4-11.3); NEUTROPHILS # (AUTO) 3.7 (2.1-6.9); NEUTROPHILS % 43.6 % (38.7-80.0); PLATELET COUNT 408 x10e3/uL (140-360); RED CELL DISTRIBUTION WIDTH 12.3 % (11.7-14.4)
[2019-04-30 10:57] LABS: INR 1.1; PROTHROMBIN TIME 14.7 seconds (11.9-14.5)
[2019-04-30 11:08] LABS: ALBUMIN 3.4 g/dL (3.5-5.0); ANION GAP 16.9 mmol/L (8-16); CALCIUM 9.1 mg/dL (8.4-10.2); CREATININE, SERUM 1.16 mg/dL (0.57-1.11); POTASSIUM 3.9 mmol/L (3.5-5.1)
[2019-04-30 11:26] LABS: CHOL/HDL RATIO 2.8 (3.0-3.6)
[~2019-05-03] VITALS: Ht 162.6 cm; Wt 73.9 kg
[2019-05-03] VITALS (11 sets, daily range): BP systolic 113–157; BP diastolic 54–84
[~2019-05-03] MED LIST changes: +ASPIRIN 325 MG TAB ONE; +ATROPINE SULFATE 0.1 MG/ML 10ML SYR ONE; +FENTANYL CITRATE/PF 100MCG/2 ML INJ ONE; +HEPARIN SOD (PORCINE) 1000 UNIT/ML 30ML ONE; +HEPARIN SOD/SOD CHLORIDE 2,000 ML ONE; +IOPAMIDOL 300MG/ML 100 ML INFUS..BTL IV ONE; +IOPAMIDOL 370 MG/ML 200 ML INFUS..BTL INJ ONE; +LIDOCAINE HCL 2% LOCAL 20 ML VIAL ONE; +MIDAZOLAM HCL 2 MG/2 ML VIAL ONE; +MORPHINE SULFATE INJ 4 MG/ML INJ 1ML ONE; +PRASUGREL 10 MG TAB ONE; +PROTAMINE SULFATE 10 MG/ML 5 ML VIAL ONE; +SODIUM CHLORIDE 0.9% 1000ML 1,000 ML ONE; +SODIUM CHLORIDE 0.9% 50ML 0 ML ONE; +VERAPAMIL HCL 2.5 MG/ML 2 ML VIAL ONE
--- NOTE | 2019-05-03 19:08 | NUR ---
Patient given discharge information progressively sat up and ambulated during last hour of recovery with no issues. Patient dressing clean dry and intact with no bleeding or hematoma noted. Patient IV removed and wheeled to lobby with . Patient pain information and med reconciliation information given.
--- NOTE | 2019-05-03 20:30 | Operative Report ---
DATE OF PROCEDURE: 05/03/2019 SURGEON: Keenan Chandler MD CARDIAC MARINE FIRE FIGHTER PROCEDURE NOTE INDICATIONS: 1. Coronary artery disease, angina with abnormal stress test. 2. Peripheral arterial disease with claudication and nonhealing ulceration of the right lower extremity. PROCEDURES PERFORMED: 1. Left heart catheterization, selective coronary angiography. 2. Abdominal aortogram. 3. Bilateral lower extremity angiogram. 4. Third order catheter placement from the left femoral artery to the right superficial femoral artery. 5. Additional third order catheter placement from the left femoral artery to the right anterior tibial artery. 6. Atherectomy and drug-coated balloon angioplasty of the right femoral and popliteal arteries. 7. Secondary thrombectomy of the right femoral artery. COMPLICATIONS: None. RECOMMENDATIONS: Continue anti-platelet/anti-coag therapy, staged intervention on the left lower extremity for peripheral arterial disease. DESCRIPTION OF PROCEDURE: Access was obtained in the left femoral artery. The patient received monitored anesthesia care. Left heart catheterization revealed mild coronary artery disease in the left coronary system, circumflex, left anterior descending artery diffuse 30% stenosis. Right coronary artery was dominant vessel. Mid right coronary artery 50% stenosis. Distal right coronary artery 50% stenosis. No intervention was deemed necessary. LV end-diastolic pressure of 10 without no gradient across the aortic valve on pullback. Abdominal aortogram demonstrated moderate disease in bilateral common iliac arteries with diffuse 60% stenosis narrow vessel. Left common femoral artery 80% stenosis. Right femoral artery was not well visualized. The catheter was advanced from the right femoral artery to the left superficial femoral artery. Third order catheter placement, unilateral extremity angiogram of the right lower extremity revealed a diffuse 70% stenosis of the mid and distal right superficial femoral artery with 90% focal stenosis of the right popliteal artery. Infrapopliteal vessels were not well seen. The catheter was then advanced in the left femoral artery to the right anterior tibial artery confirming three vessel runoff in the right leg. Left leg angiogram demonstrated a patent stent in the left femoral artery along with single-vessel runoff via the left anterior tibial artery. The tibioperoneal artery and the left-sided critical stenosis of 99%. A decision was made to intervene on the right femoral and popliteal artery. The patient received 8000 units of intravenous heparin. The sheath was exchanged to a 6-Serbian 45 cm sheath, advanced to the left femoral artery to the right superficial femoral artery. Orbital atherectomy of the right superficial femoral popliteal artery was performed using 1.5 mm CSI Diamondback [place]. Large amounts of visible thrombus were noted for which manual aspiration secondary thrombectomy was needed. Balloon angioplasty with 5 and 6 mm drug eluding balloon was performed in the right popliteal and femoral artery with excellent result, less than 10% residual stenosis. Three vessel runoff to the right with no complication. Left groin sheath was secured in place for removal under manual pressure. The patient was discharged home same day with instructions to follow up as I stated above. MD FLOR Cummings/MODL /[id number]
== END | disposition home or self-care (01) ==
LOC: CATH LAB 10:55 → EDSTATUS 13:30
PROVIDERS: ATTEND Internal Medicine Interventional Cardiology
DX: I25.118 Atherosclerotic heart disease of native coronary artery with other forms of angina pectoris (principal); I70.233 Atherosclerosis of native arteries of right leg with ulceration of ankle; R94.39 Abnormal result of other cardiovascular function study; R03.0 Elevated blood-pressure reading, without diagnosis of hypertension; E11.9 Type 2 diabetes mellitus without complications; R04.0 Epistaxis; F17.200 Nicotine dependence, unspecified, uncomplicated; Z01.812 Encounter for preprocedural laboratory examination; Z79.4 Long term (current) use of insulin; Z79.02 Long term (current) use of antithrombotics/antiplatelets; Z79.82 Long term (current) use of aspirin; Z82.49 Family history of ischemic heart disease and other diseases of the circulatory system
CPT/HCPCS: 36415 ×2; 37186; 37225; 75625; 80053; 80061; 82948; 85025; 85610; 93458; C1724; C1769; C1887; J1644; J2001; J2250; J2270; J2720; J3010; J7030; Q9967 ×2; 36247; 75716

== ENCOUNTER → 2019-05-25 | Outpatient (CLI) | payer OTHER ==
[~2019-05-25] MED LIST changes: +ALPRAZOLAM 0.5 MG TAB ONE; -ASPIRIN 325 MG TAB ONE; -ATROPINE SULFATE 0.1 MG/ML 10ML SYR ONE; +DIPHENHYDRAMINE HCL 25 MG CAP ONE; -FENTANYL CITRATE/PF 100MCG/2 ML INJ ONE; -HEPARIN SOD (PORCINE) 1000 UNIT/ML 30ML ONE; -HEPARIN SOD/SOD CHLORIDE 2,000 ML ONE; -IOPAMIDOL 300MG/ML 100 ML INFUS..BTL IV ONE; -IOPAMIDOL 370 MG/ML 200 ML INFUS..BTL INJ ONE; -LIDOCAINE HCL 2% LOCAL 20 ML VIAL ONE; -MIDAZOLAM HCL 2 MG/2 ML VIAL ONE; -MORPHINE SULFATE INJ 4 MG/ML INJ 1ML ONE; -PRASUGREL 10 MG TAB ONE; -PROTAMINE SULFATE 10 MG/ML 5 ML VIAL ONE; -SODIUM CHLORIDE 0.9% 1000ML 1,000 ML ONE; -SODIUM CHLORIDE 0.9% 50ML 0 ML ONE; -VERAPAMIL HCL 2.5 MG/ML 2 ML VIAL ONE
== END ==
LOC: WCC 05:00
PROVIDERS: ATTEND Podiatrist Foot & Ankle Surgery
DX: E11.621 Type 2 diabetes mellitus with foot ulcer (principal); E11.51 Type 2 diabetes mellitus with diabetic peripheral angiopathy without gangrene; L97.411 Non-pressure chronic ulcer of right heel and midfoot limited to breakdown of skin; E78.00 Pure hypercholesterolemia, unspecified; G90.09 Other idiopathic peripheral autonomic neuropathy; I70.203 Unspecified atherosclerosis of native arteries of extremities, bilateral legs; I95.89 Other hypotension; N32.89 Other specified disorders of bladder; Z79.4 Long term (current) use of insulin; Z01.810 Encounter for preprocedural cardiovascular examination; Z01.811 Encounter for preprocedural respiratory examination; F17.210 Nicotine dependence, cigarettes, uncomplicated

== ENCOUNTER → 2019-05-25 | Day surgery (SDC) | payer OTHER ==
--- NOTE | 2019-05-20 11:20 | NUR ---
1120 Pt arrived for pre op for peripheral angio on Dr Ramesh porter. I was informed pt in small waiting area. "feeling low glucose" went to waiting area to assess pt. Pt deferred ER for glucose check. She states she forgot and has no glucometer with her. However, has glucose tablets. Pt walks with cane and at chairside. With visual assessment pt states not "used to be NPO"no diaphoresis IL 88 Sats 97% room air. Discussed pt with preop staff and am labs placed in [facility] and ask lab to draw stat. Also, gave pt juice and crackers for emergency and asked to call if pt starts to feel worse. stevenson/rn
[2019-05-20 11:58] LABS: BASOPHILS # (AUTO) 0.1 (0.0-0.1); BASOPHILS % 1.2 % (0.0-1.0); EOSINOPHILS # (AUTO) 0.3 (0.0-0.4); EOSINOPHILS % 3.6 % (0.0-6.0); HEMATOCRIT 33.2 % (34.2-44.1); HEMOGLOBIN 10.5 g/dL (12.0-16.0); LYMPHOCYTES # (AUTO) 3.1 (1.0-3.2); LYMPHOCYTES % 44.7 % (18.0-39.1); MEAN CORPUSCULAR HEMOGLOBIN 25.3 pg (28-32); MEAN CORPUSCULAR HGB CONC 31.6 g/dL (31-35); MONOCYTES # (AUTO) 0.4 (0.2-0.8); MONOCYTES % 5.5 % (4.4-11.3); NEUTROPHILS # (AUTO) 3.1 (2.1-6.9); NEUTROPHILS % 44.9 % (38.7-80.0); PLATELET COUNT 495 x10e3/uL (140-360); RED BLOOD COUNT 4.15 x10e6/uL (3.6-5.1)
[2019-05-20 12:19] LABS: ALBUMIN/GLOBULIN RATIO 1.1 (0.8-2.0); ANION GAP 14.5 mmol/L (8-16); CALCIUM 10.2 mg/dL (8.4-10.2); CREATININE, SERUM 0.99 mg/dL (0.57-1.11); POTASSIUM 3.5 mmol/L (3.5-5.1)
--- NOTE | 2019-05-20 12:25 | NUR ---
Asked Dr. Chandler if we wanted MAC sedation with procedure for patient. Dr. Chandler ordered for MAC sedation to be given with procedure.
--- NOTE | 2019-05-20 12:30 | NUR ---
Spoke with Emery in surgery scheduling. She stated 1200 on 05/25/19 was available. I acquired 1200 spot on 05/25/19 for patient.
[~2019-05-25] VITALS: Ht 162.6 cm; Wt 71.7 kg
[2019-05-25] VITALS (11 sets, daily range): BP systolic 115–165; BP diastolic 66–88
[~2019-05-25] MED LIST changes: -ALPRAZOLAM 0.5 MG TAB ONE; -DIPHENHYDRAMINE HCL 25 MG CAP ONE; +FENTANYL CITRATE/PF 100MCG/2 ML INJ ONE; +HEPARIN SOD (PORCINE) 1000 UNIT/ML 30ML ONE; +HEPARIN SOD/SOD CHLORIDE 2,000 ML ONE; +IOPAMIDOL 300MG/ML 100 ML INFUS..BTL IV ONE; +LIDOCAINE HCL 2% LOCAL 20 ML VIAL ONE; +LIDOCAINE HCL 2% LOCAL INJ 5 ML SDV VIAL INJ ONE; +MIDAZOLAM HCL 2 MG/2 ML VIAL ONE; +NITROGLYCERIN/D5W 200 MCG/ML 250 ML ONE; +PROPOFOL IV EMULSION 10 MG/ML 20 ML VIAL ONE; +PROTAMINE SULFATE 10 MG/ML 5 ML VIAL ONE; +SODIUM CHLORIDE 0.9% 1000ML 1,000 ML ONE; +SODIUM CHLORIDE 0.9% 50ML 50 ML ONE; +VERAPAMIL HCL 2.5 MG/ML 2 ML VIAL ONE
--- NOTE | 2019-05-25 14:42 | NUR ---
0299i Received report from Byron FIGUEROA and AA s/p MAC Peripheral angio Dr Chandler. Rt Mynx dressing dry and intact w/o hematoma or oozing.Alert oriented and appropriate, PERRLA, respirations even and unlabored to room air. Pulses x4 extremities equal and strong. Pedal pulses PT/DP x4 via doppler Cap fill brisk < 3 sec. Skin warm and dry integrity appears IV 20g to left hand at 100cchr, presents healthy w/o s/s of infiltration or complaint. Abdomen soft and supple. pt offered toileting, denies need to urinate or defecate. No personal affects with patient. Family Jason at bedside. Pt and family verbalizes understanding of POC. Currently w/o complaint of pain or need. Patient may dc at 1700pm No gross issues pain,pallor,pressure or dysrhythmia. ds/carolynn
--- NOTE | 2019-05-25 16:39 | NUR ---
1639 Offered and tolerating po intake Hob up slightly and Jason completed dc plans w/o additional information needed. ds/rn
--- NOTE | 2019-05-25 17:00 | NUR ---
1700 Pt meets DC criteria. RT Mynx femoral site assessed for s/s of complication and presence of hematoma. warm, dry, no discolor, and pulses present. IV removed from left hand . Distal tip appears intact. VS WNL. Pt denies pain, sob, or need at this time. Family at bedside. Review of discharge paperwork and follow up instructions. verbalized understanding. Pt to wheelchair and transported to front of hospital. Transferred to private vehicle under own strength w/o incident with DC paperwork in hand. -ds/rn
--- NOTE | 2019-05-26 11:15 | Operative Report ---
DATE OF PROCEDURE: 05/25/2019 SURGEON: Keenan Chandler MD INDICATION: Peripheral arterial disease, claudication of left lower extremity. PROCEDURES PERFORMED: 1. Third-order catheter placement from the right femoral artery to the left superficial femoral artery with unilateral extremity angiogram. 2. Additional third-order catheter placement of the right femoral artery to the left anterior tibial artery with additional vessel angiogram. 3. Atherectomy and balloon angioplasty of the left femoral artery. 4. Secondary thrombectomy of the left femoral artery. 5. Deployment of right groin Mynx closure device. COMPLICATIONS: None. RECOMMENDATIONS: Staged intervention of the left posterior tibial artery via the left posterior tibial, pedal access. BLOOD LOSS: Minimal. ANESTHESIA: Monitored anesthesia care. DESCRIPTION OF PROCEDURE: Access obtained in the right femoral artery, diffuse disease in the iliac arteries. The catheter was then advanced in the left femoral artery for 3rd order catheter placement. 90% stenosis of the left proximal superficial femoral artery stent was patent. Single-vessel runoff via the anterior tibial artery. Posterior tibial artery was occluded. Pedal vessels could not be seen. The catheter was then advanced from the right femoral artery to the left anterior tibial artery with single-vessel runoff noted and reconstitution of the left posterior tibial artery. A decision was made to intervene on the left femoral artery. The patient received intravenous heparin for anticoagulation. Orbital atherectomy using a 1.5 mm solid CSI Diamondback [place] was performed with large amounts of visible thrombus for which secondary manual aspiration thrombectomy was needed. Balloon angioplasty with a 5 mm balloon resulted in excellent one vessel runoff to the left foot. No complications. Right groin repaired using Mynx closure device. The patient was discharged home same day. MD FLOR Cummings/MODL /[id number]
== END | disposition home or self-care (01) ==
LOC: CATH LAB 09:54
PROVIDERS: ATTEND Internal Medicine Interventional Cardiology
DX: I70.212 Atherosclerosis of native arteries of extremities with intermittent claudication, left leg (principal); I25.118 Atherosclerotic heart disease of native coronary artery with other forms of angina pectoris; I11.0 Hypertensive heart disease with heart failure; I50.9 Heart failure, unspecified; I25.2 Old myocardial infarction; E78.00 Pure hypercholesterolemia, unspecified; E13.8 Other specified diabetes mellitus with unspecified complications; Z01.812 Encounter for preprocedural laboratory examination; Z79.02 Long term (current) use of antithrombotics/antiplatelets; Z79.82 Long term (current) use of aspirin; Z79.84 Long term (current) use of oral hypoglycemic drugs; Z79.4 Long term (current) use of insulin; Z87.891 Personal history of nicotine dependence; Z82.49 Family history of ischemic heart disease and other diseases of the circulatory system
CPT/HCPCS: 36415 ×2; 37186; 37225; 75710; 80053; 82948; 85025; C1724; C1725; C1760; C1769 ×2; C1887 ×2; J1644; J2001 ×2; J2250; J2704; J2720; J3010; J7030; Q9967; 36247

== ENCOUNTER 2019-06-22 06:42 | Day surgery (SDC) | payer OTHER ==
[2019-06-18 11:20] LABS: BASOPHILS # (AUTO) 0.1 (0.0-0.1); BASOPHILS % 0.8 % (0.0-1.0); EOSINOPHILS # (AUTO) 0.2 (0.0-0.4); EOSINOPHILS % 2.8 % (0.0-6.0); HEMATOCRIT 35.3 % (34.2-44.1); LYMPHOCYTES # (AUTO) 2.2 (1.0-3.2); LYMPHOCYTES % 33.3 % (18.0-39.1); MEAN CORPUSCULAR HEMOGLOBIN 24.6 pg (28-32); MEAN CORPUSCULAR HGB CONC 31.2 g/dL (31-35); MEAN CORPUSCULAR VOLUME 78.8 fL (81-99); MONOCYTES # (AUTO) 0.3 (0.2-0.8); NEUTROPHILS # (AUTO) 3.7 (2.1-6.9); NEUTROPHILS % 57.9 % (38.7-80.0); PLATELET COUNT 424 x10e3/uL (140-360); RED BLOOD COUNT 4.48 x10e6/uL (3.6-5.1); RED CELL DISTRIBUTION WIDTH 13.8 % (11.7-14.4)
[2019-06-18 11:45] LABS: ALANINE AMINOTRANSFERASE 19 IU/L (0-55); ALBUMIN 3.5 g/dL (3.5-5.0); ALBUMIN/GLOBULIN RATIO 0.9 (0.8-2.0); ALKALINE PHOSPHATASE 107 IU/L (40-150); ANION GAP 15.3 mmol/L (8-16); BLOOD UREA NITROGEN 10 mg/dL (7-26); BUN/CREATININE RATIO 12 (6-25); CALCIUM 9.8 mg/dL (8.4-10.2); CARBON DIOXIDE 27 mmol/L (22-29); CHLORIDE 100 mmol/L (98-107); CREATININE, SERUM 0.83 mg/dL (0.57-1.11); EST GLOMERULAR FILTRATION RATE > 60 ML/MIN (60-); GLUCOSE 243 mg/dL (74-118); POTASSIUM 3.3 mmol/L (3.5-5.1); SODIUM 139 mmol/L (136-145)
[~2019-06-22] VITALS: Ht 162.6 cm; Wt 72.6 kg
[2019-06-22] VITALS (17 sets, daily range): BP systolic 129–169; BP diastolic 68–100
[~2019-06-22 06:42] MED LIST changes: -FENTANYL CITRATE/PF 100MCG/2 ML INJ ONE; -HEPARIN SOD (PORCINE) 1000 UNIT/ML 30ML ONE; -HEPARIN SOD/SOD CHLORIDE 2,000 ML ONE; -IOPAMIDOL 300MG/ML 100 ML INFUS..BTL IV ONE; -LIDOCAINE HCL 2% LOCAL 20 ML VIAL ONE; -LIDOCAINE HCL 2% LOCAL INJ 5 ML SDV VIAL INJ ONE; -MIDAZOLAM HCL 2 MG/2 ML VIAL ONE; -NITROGLYCERIN/D5W 200 MCG/ML 250 ML ONE; -PROPOFOL IV EMULSION 10 MG/ML 20 ML VIAL ONE; -PROTAMINE SULFATE 10 MG/ML 5 ML VIAL ONE; -SODIUM CHLORIDE 0.9% 1000ML 1,000 ML ONE; -SODIUM CHLORIDE 0.9% 50ML 50 ML ONE; -VERAPAMIL HCL 2.5 MG/ML 2 ML VIAL ONE
[2019-06-22] MEDS ORDERED: HEPARIN SOD/SOD CHLORIDE 2,000 ML ONE (08:25)
[2019-06-22] MEDS ORDERED: IOPAMIDOL 300MG/ML 100 ML INFUS..BTL IV ONE (08:25)
[2019-06-22] MEDS ORDERED: LIDOCAINE HCL 2% LOCAL 20 ML VIAL ONE (08:25)
[2019-06-22] MEDS ORDERED: SODIUM CHLORIDE 0.9% 1000ML 1,000 ML ONE ×2 (08:25→09:11)
[2019-06-22] MEDS ORDERED: MIDAZOLAM HCL 2 MG/2 ML VIAL ONE ×3 (08:59→09:39)
[2019-06-22] MEDS ORDERED: FENTANYL CITRATE/PF 100MCG/2 ML INJ ONE ×2 (09:00→09:40)
[2019-06-22] MEDS ORDERED: VERAPAMIL HCL 2.5 MG/ML 2 ML VIAL ONE (09:11)
[2019-06-22] MEDS ORDERED: SODIUM CHLORIDE 0.9% 50ML 50 ML ONE (10:12)
[2019-06-22] MEDS ORDERED: ONDANSETRON HCL INJ 2MG/ML 2ML 2 MG/ML VIAL ONE (10:28)
--- NOTE | 2019-06-22 10:30 | NUR ---
1030 Bedside report received from HENRY Patel. Alert oriented and appropriate, PERRLA, respirations even and unlabored to room air. Pulses x4 extremities equal and strong. Pedal pulses PT/DP 4 doppler and marked. Cap fill brisk < 3 sec. + neurovascular function at this time. Left pedal tr band intact w/o oozing. Rt groin 6 FR sheath. Act 134 at 1100am reported to charge staff ready for pull. Notified cath team of readiness with Atropine at bedside. Skin warm and dry integrity appears D/I IV 20g to left hand at 100cchr. Presents healthy w/o s/s of infiltration or complaint. Abdomen soft and supple. pt offered toileting, denies need to urinate or defecate. No personal affects with patient. Family [phone]. Pt and family verbalizes understanding of POC. Currently w/o complaint of pain or need. Tr band can reduce air at 1130am Medicated by Amanda with Zofran on arrival to room resolved nausea. stevenson/henry
[2019-06-22] MEDS ORDERED: ATROPINE SULFATE 0.1 MG/ML 10ML SYR ONE (11:17)
--- NOTE | 2019-06-22 11:30 | NUR ---
bedside report received from Bhavna Peterson RN. Alert oriented and appears stressed, PERRLA, respirations even and fast to room air. Pedal pulses PT/DP doppler and marked. Cap fill brisk < 3 sec. sheath to right groin, TR Band to Left ankle Skin warm and clammy integrity appears intact overall. IV 20g to left luís presents healthy w/o s/s of infiltration or complaint. Abdomen soft and supple. pt offered toileting, denies need to urinate or defecate. Personal affects with patient. Family not available. Pt verbalizes understanding of POC. On bedside monitoring VS WNL trend for patient. Currently w/o complaint of pain or need. . -cgf
--- NOTE | 2019-06-22 11:30 | NUR ---
1130 Addendum: 06/22/19 at 1655 by Bhavna Graham RN [id number] Compression removal: Initial Cuff volume 17cc at 10:17 1030am -2cc cc Removed No hematoma/bleeding noted with normal neurovascular function. 1045am -5cc Removed No hematoma/ bleeding noted with normal neurovascular function. 1100am -5 cc Removed No hematoma/bleeding noted with normal neurovascular function. 1115am -5cc Removed No hematoma/ bleeding noted with normal neurovascular function. Air removal completed. Stasis achieved sterile 2x2,Tegaderm,dressing dry and intact. No hematoma, bleeding noted with normal neurovascular function. Ds/Rn
--- NOTE | 2019-06-22 11:40 | NUR ---
Sheath pulled by Tessie CHAVEZ. Pt tearful and panting. tactile support provided as well as distraction. pt conversant and following instructions.
--- NOTE | 2019-06-22 11:55 | NUR ---
PT now tearful despite measures. Morphine 4mg IV given for comfort. VS wnl with slite increase of BP towards end of sheath pull. -cgf
[2019-06-22] MEDS ORDERED: MORPHINE SULFATE INJ 4 MG/ML INJ 1ML ONE (11:57)
--- NOTE | 2019-06-22 12:00 | NUR ---
sheath pull complete , occlusive dressing applied. education provided and need to lay flat for 6 hours. TR band removed from left ankle. No active bleeding. dressing applied. PT left with call light within reach, bed low and locked, siderails up x 2. visible increase in comfort with verbal acknowledgment. - cgf
--- NOTE | 2019-06-22 12:25 | NUR ---
report and handoff back to Bhavna Peterson with review of documented events. awaiting room to be cleaned for transfer - f
--- NOTE | 2019-06-22 12:35 | NUR ---
1235 RT groin sheath site intact remains down to 6pm Rt groin site w/o hematoma and site w/o oozing Left pedal tr band site intact w/o oozing or hematoma. Received 102 and report phoned to Ria Leo at 1300pm ds/rn
--- NOTE | 2019-06-22 13:19 | NUR ---
1315p phone handoof compleed with Ria Leo downtime till 6m and dc home Dc papers ready for sign and dc/ Both cannulation sites right groin and left pedal site intact w/o hematoma no oozing. Transfer to floor care per yeimi and eagle pantoja. cell [phone].sachin Addendum: 06/22/19 at 1656 by Bhavna Graham RN errors in spelling,1315pm phone handoff completed with Ria Leo.
--- NOTE | 2019-06-22 13:35 | NUR ---
Patient transferred to unit from medical laboratory manager. Patient is post op peripheral angiogram. Left pedal access was used with dressing in place. No bleeding noted. Doppler pulses obtained very faintly. No discoloration noted. Right groin site clean and dry. No bleeding or bruising noted. Patient is to remain flat for 6 hours.
--- NOTE | 2019-06-22 14:00 | NUR ---
Pedal pulses and groin site assessed and no bleeding or bruising noted. Patient remains on bed rest. Visitors at bedside
--- NOTE | 2019-06-22 15:04 | NUR ---
Right groin site and left pedal pulse sight remain clean and dry. No bleeding, bruising or pain noted
--- NOTE | 2019-06-22 16:45 | Operative Report ---
DATE OF PROCEDURE: 06/22/2019 SURGEON: Keenan Chandler MD INDICATION: Peripheral arterial disease. PROCEDURES PERFORMED: 1. Unilateral extremity angiogram with accesses from the right femoral artery to the left common femoral artery as well as pedal access in the left posterior tibial artery. 2. Angioplasty and secondary thrombectomy of the left femoral, popliteal as well as posterior tibial arteries. 3. Deployment of left ankle TR band. COMPLICATIONS: None. RECOMMENDATIONS: Triple anticoagulant therapy. DESCRIPTION OF PROCEDURE: Access obtained in the left posterior tibial artery using ultrasound guidance. Access obtained in the right femoral artery. A 6-Bangladeshi sheath was placed and advanced to the left femoral artery. Occlusion of the posterior tibial artery was noted. This was crossed using a Glidewire. Angioplasty of 3 mm balloon was performed, excellent end result. However, limitation of flow in the left femoral artery was noted. Pressures were normal. The sheath was exchanged to a short 6-Bangladeshi sheath in the right groin was to be removed and with manual pressure. The patient was administered protamine for reversal of heparin effect and discharged home same day. Keenan Chandler MD KSB/MODL /[id number]
--- NOTE | 2019-06-22 16:47 | NUR ---
Right groin site and left pedal site clean and dry. Patient resting with no s/s of distress noted.
--- NOTE | 2019-06-22 17:47 | NUR ---
Patient voided at this time with no complications
--- NOTE | 2019-06-22 18:10 | NUR ---
Removed IV at this time from left hand. Pressure dressing applied
--- NOTE | 2019-06-22 18:17 | NUR ---
Patient discharged from facility to home. patient assisted out via staff and wheelchair. Reviewed discharge paperwork, follow up appts and no RX's neede. Right groin site and left pedal site remained clean and dry. No s/s of distress noted
--- NOTE | 2019-06-27 12:12 | Operative Report ---
DATE OF PROCEDURE: 06/22/2019 SURGEON: Keenan Chandler MD INDICATION: Peripheral arterial disease. PROCEDURES PERFORMED: 1. Unilateral extremity angiogram with access from the right femoral artery, left common femoral artery (third-order) catheter placement. Additional left pedal access into the left posterior tibial artery. 2. Angioplasty of the left femoral popliteal and posterior tibial arteries. COMPLICATIONS: Possible dissection in the left common femoral artery with flow restriction. DESCRIPTION OF PROCEDURE: Access obtained in the left pedal artery. Complete occlusion of the left posterior tibial artery was noted. Inability to cross lesion, access was then obtained in the right femoral artery and the sheath was advanced in the right femoral artery to the left common femoral artery. Patent stent in the left femoral artery was noted with 90% femoral stent and 90% popliteal stenosis. A wire was advanced into the right posterior tibial artery from the right lead into the left posterior tibial artery from the right femoral artery. Angioplasty with a 3 mm balloon was performed. A poor flow was noted. No further intervention was deemed necessary. The right groin sheath was removed under manual pressure. Left pedal sheath was removed. TR band applied. The patient was discharged home same day. Keenan Chandler MD [facility]/MODL /[id number]
== END 2019-06-22 18:14 | disposition home or self-care (01) ==
LOC: CATH LAB 06:42
PROVIDERS: ATTEND Internal Medicine Interventional Cardiology
DX: I70.212 Atherosclerosis of native arteries of extremities with intermittent claudication, left leg (principal); Z01.812 Encounter for preprocedural laboratory examination; Z79.4 Long term (current) use of insulin; E11.51 Type 2 diabetes mellitus with diabetic peripheral angiopathy without gangrene
CPT/HCPCS: 36415; 37224; 37228; 75710; 76937; 80053; 85025; C1725; C1769 ×4; C1887 ×3; J2001; J2250; J2270; J2405; J3010; J7030; Q9967; 36247